=== PATIENT | male | born 1935 | race Caucasian/White ===

== ENCOUNTER 2016-09-20 08:45 | Emergency (ER) | payer OTHER ==
[~2016-09-20] VITALS: Ht 165.1 cm; Wt 65.0 kg
[~2016-09-20 08:45] MED LIST: ALLO100T PO; ASCA500 PO; ASPI81TA28 PO; ATOR80TA PO; CLOP1TAB15 PO; DIGO0.122 PO; DOCU100T7 PO; FURO-85 PO; METO50TA16 PO; MISC-573; MULT-506 PO; NTRGSL/4 UT; OMEP40CA PO; PRED20TA2 PO; SPIR25TA PO; SYMIN INH; SYN50 PO; TIOT1SPR INH; ZNTT/150 PO
[2016-09-20 08:49] VITALS: TEMP 36.5; Ht 165.1 cm; Wt 65.0 kg
[2016-09-20] MEDS ORDERED: ALBUT/IPRATROP 3MG/0.5MG NEB 3 ML VIAL ONE (09:48)
--- NOTE | 2016-09-20 10:16 | EMERGENCY ROOM VISIT NOTE ---
History First contact with patient: 08:56 Chief Complaint: COUGH Stated Complaint: COUGH, SOB, TIGHTNESS OF CHEST Nursing Triage Summary: Productive cough that started a couple days ago. States theres blood in it, he cant sleep due to coughing. Coughs until he loses his breath. Denies CP. Pt on blood thinners. Was here for a fall, was admitted. History of Present Illness The patient is a 81 year old male who presents to the Emergency Room with complaints of worsening cough and dyspnea. He was in admitted hospital on 09/15 for 3 days for dehydration and fall. CXR done at that time was unchanged from previous CXR from one month earlier Since discharge, patient feels his respiratory function has significantly declined and he is feeling week, saying he feels his legs are heavy and he is unable to lift them. He is spending significantly more time in his recliner as a result although he says he is able to use his walker to ambulate to the washroom without too much dyspnea. His cough has been getting worse since, with significant dyspnea post coughing fits. He is bringing up clear phlegm with streaks of blood. The blood tinging appeared ~1-2 days ago. Has new onset rhinorrhea, but otherwise denies URI symptoms (no sore throat, ear pain, nasal congestion) and has not had any fevers He has no associated chest pain, abdominal pain or back pain and no nausea or vomiting. Not on home oxygen/CPAP/BIPAP Review of Systems See HPI for pertinent positives and negatives. A total of ten systems were reviewed and were otherwise negative. Past Medical/Surgical History Medical Problems: (1) Dehydration, moderate (2) Feeling exhausted (3) Gouty arthropathy (4) Liver contusion (5) Lung cancer (6) Neutropenia (7) Post-op pain (8) Systolic heart failure Surgical Problems: (1) S/P CABG (coronary artery bypass graft) Family History Cancer FHx: cancer Heart disease Hypertension Lung disease Social History Smoking Status: Former Smoker Alcohol Use: none Marital Status: Occupation Status: retired Current/Historical Medications Scheduled Allopurinol (Zyloprim), 100 MG PO QAM Ascorbic Acid (Vitamin C), 500 MG PO BID Aspirin (Aspirin Ec), 81 MG PO DAILY Atorvastatin Calcium (Lipitor), 80 MG PO HS Budesonide/Formoterol Fumarate (Symbicort 160-4.5 Mcg/Act), 2 PUFFS INH BID Clopidogrel (Plavix), 75 MG PO DAILY Digoxin (Lanoxin), 0.125 MG PO QAM Furosemide (Lasix), 20 MG PO DAILY Levofloxacin (Levaquin), 500 MG PO DAILY Levothyroxine Sodium (Synthroid), 50 MCG PO QAM Metoprolol Tartrate (Lopressor) (Lopressor), 50 MG PO BID Multivitamin (Multivitamin), 1 TAB PO QAM Omeprazole (Prilosec), 40 MG PO QPM Oseltamivir Phosphate (Tamiflu), 1 CAP PO BID Prednisone (Prednisone Tab), 20 MG PO DAILY Ranitidine (Zantac), 150 MG PO QAM Spironolactone (Aldactone), 25 MG PO QAM Tiotropium [place] Monohydrate (Spiriva Respimat), 2 PUFFS INH DAILY Scheduled PRN Docusate Sodium (Stool Softener), 100 MG PO BID PRN for Constipation Nitroglycerin (Nitrostat), 0.4 MG UT PRN PRN for CHEST PAIN Durable Medical Equipment Misc. Devices (Roller Walker), UNIT Allergies Coded Allergies: Lisinopril (Verified Allergy, Unknown, Unknown, 09/20/16) Physical Exam Vital Signs Date Time Temp Pulse Resp B/P Pulse Ox O2 Delivery O2 Flow Rate FiO2 09/20/16 08:53 98 Room Air 09/20/16 08:49 36.5 98 18 126/72 97 Room Air Physical Exam GENERAL: alert, thin, lying in bed, tachypneic, non-toxic HEAD: Normocephalic, atraumatic. No sinus tenderness. EYES: PERRL, EOMI, normal conjunctiva OROPHARYNX: no exudate, no erythema, lips, buccal mucosa, and tongue normal and mucous membranes are dry NECK: supple, no nuchal rigidity, no adenopathy, non-tender LUNGS: Normal chest wall mechanics, but poor inspiratory effort with decreased air entry. No crepitations, no rhonchi or wheezes. HEART: no murmurs, S1 normal and S2 normal CHEST: No reproducible tenderness. ABDOMEN: abdomen soft, non-tender, normo-active bowel sounds, no masses, no rebound or guarding. BACK: Back is symmetrical on inspection, no deformities, no midline tenderness, no CVA tenderness. SKIN: Warm, pink, dry. No erythema, rashes, or bruising. EXTREMITIES: Grossly normal. Moving all 4 limbs, strength 5/5. No pitting edema. Calves non tender. NEURO: Alert, Ox3. No focal deficits. Normal sensorium, cranial nerves II-XII grossly intact, normal speech. PSYCH: Mood and affect appropriate. Medical Decision & Procedures ER Provider Diagnostic Interpretation: TWO VIEW CHEST CLINICAL HISTORY: Dyspnea. Lung cancer. FINDINGS: PA and lateral chest radiographs are compared to study dated 09/15/2016. Correlation is made with chest CT dated 06/01/2016. The PA view is degraded patient rotation. A right subclavian central venous infusion port is unchanged in position, as is a 2-lead cardiac AICD that largely obscures the left mid chest. The patient is status post midline sternotomy. The heart is enlarged and there is atherosclerotic calcification of the thoracic aorta. The pulmonary vasculature is noncongested. Emphysema and chronic interstitial thickening are similar to previous. Nodular densities are again noted in the left upper lobe with associated pleural thickening. A right suprahilar lesion is also unchanged. Superimposed airspace consolidation is identified in the left upper lung. Small pleural effusions are noted. Elevation of the left hemidiaphragm is again noted. No pneumothorax is seen. The skeletal structures are osteopenic. Degenerative change is noted throughout the thoracic spine. A surgical anchor is present in the right humeral head. IMPRESSION: Laboratory Results Test 09/20/16 09:53 Influenza Type A Antigen POS for Influ A (NEG) Influenza Type B Antigen Neg for Influ B (NEG) Medications Administered Medications (Trade) Dose Ordered Sig/Sheila Route Start Time Stop Time Status Last Admin Dose Admin Albuterol/ Ipratropium (Duoneb) 3 ml STK-MED ONCE .ROUTE 09/20/16 09:48 09/20/16 09:49 DC 09/20/16 09:48 3 ML Medical Decision 81 year old male presents to ED 3 days after hospital discharge with worsening dyspnea Differential diagnoses includes but is not limited to pneumonia, bronchitis, COPD/Asthma exacerbation, pneumothorax, pulmonary embolism, congestive heart failure, acute coronary syndrome, atelectasis Patient was given Duoneb, with some symptom improvement CXR was performed and reported cardiomegaly and AICD without evidence of congestive failure, emphysema, chronic elevation of left hemidiaphragm, nodularity and pleural thickening in the left lung, and a right suprahilar lesion are similar to previous. Additionally, there is superimposed airspace consolidation in the left upper lung consistent with pneumonia and small pleural effusions are identified. Also, rapid flu test came back positive for influenza A. As such, patient started on Levaquin 500mg daily x 7 days and Tamiflu 75mg BID x 5 days, with first doses given in hospital Admission versus discharge was discussed with patient. At this time patient wishes to try going home. Patient and his son understand and are agreeable with care plan. Impression Primary Impression: Pneumonia Additional Impressions: Influenza, Productive cough, Dyspnea Departure Information Dispostion Home / Self-Care Condition FAIR Prescriptions Oseltamivir Phosphate (Tamiflu) 75 Mg Cap 1 CAP PO BID for 5 Days, #10 CAP Prov: Alka. Alvarenga MD 09/20/16 Levofloxacin (Levaquin) 500 Mg Tab 500 MG PO DAILY for 7 Days, #7 TAB Prov: Alka. Alvarenga MD 09/20/16 Referrals Anthony Abarca M.D. (PCP) Patient Instructions A Signature Page, My [facility]
--- NOTE | 2016-09-20 10:19 | DIAGNOSTIC IMAGING REPORT ---
TWO VIEW CHEST CLINICAL HISTORY: Dyspnea. Lung cancer. FINDINGS: PA and lateral chest radiographs are compared to study dated 09/15/2016. Correlation is made with chest CT dated 06/01/2016. The PA view is degraded patient rotation. A right subclavian central venous infusion port is unchanged in position, as is a 2-lead cardiac AICD that largely obscures the left mid chest. The patient is status post midline sternotomy. The heart is enlarged and there is atherosclerotic calcification of the thoracic aorta. The pulmonary vasculature is noncongested. Emphysema and chronic interstitial thickening are similar to previous. Nodular densities are again noted in the left upper lobe with associated pleural thickening. A right suprahilar lesion is also unchanged. Superimposed airspace consolidation is identified in the left upper lung. Small pleural effusions are noted. Elevation of the left hemidiaphragm is again noted. No pneumothorax is seen. The skeletal structures are osteopenic. Degenerative change is noted throughout the thoracic spine. A surgical anchor is present in the right humeral head. IMPRESSION: 1. Cardiomegaly and AICD. There is no radiographic evidence of congestive failure. 2. Emphysema, chronic elevation of left hemidiaphragm, nodularity and pleural thickening in the left lung, and a right suprahilar lesion are similar to previous. This was better characterized by CT on 06/01/2016. 3. There is superimposed airspace consolidation in the left upper lung. Correlate clinically for evidence of pneumonia. 4. Small pleural effusions are identified. Electronically signed by: Eric Wiggins M.D. 09/20/2016 10:17 AM
[2016-09-20] MEDS ORDERED: LEVOFLOXACIN 250 MG TAB PO STA (10:52)
[2016-09-20] MEDS ORDERED: OSELTAMIVIR PHOSPHATE 75 MG CAP PO STA (11:07)
[2016-09-20] MEDS ORDERED: LEVO-366 PO (11:14)
[2016-09-20] MEDS ORDERED: OSEL75CA23 PO (11:14)
[2016-09-20] MEDS ORDERED: ALBUT/IPRATROP 3MG/0.5MG NEB 3 ML VIAL INH SCH (12:00)
--- NOTE | 2016-09-20 12:04 | EMERGENCY ROOM VISIT NOTE ---
History Report prepared by Monse: Winnie Stoll Under the Supervision of: Dr. Ulisses Amin D.O. First contact with patient: 08:56 Chief Complaint: COUGH Stated Complaint: COUGH, SOB, TIGHTNESS OF CHEST Nursing Triage Summary: Productive cough that started a couple days ago. States theres blood in it, he cant sleep due to coughing. Coughs until he loses his breath. Denies CP. Pt on blood thinners. Was here for a fall, was admitted. History of Present Illness The patient is a 81 year old male who presents to the Emergency Room with complaints of a worsening cough that started a couple days ago. The cough is productive with clear and tinged red sputum. He was seen in the ED on September 15 after generalized weakness and a fall. He was admitted and discharged from the hospital 3 days ago. Since then, his respiratory function has worsened. The patient is experiencing some post-cough dyspnea. He denies fever, sore throat, ear pain, sinus congestion, chest pain, nausea, and vomiting. The patient has lung cancer. Source of History: patient Onset: a couple days ago Quality: other (productive with clear and red tinged sputum) Timing: worsening Associated Symptoms: No chest pain, No fevers, No nausea, No sorethroat, No vomiting Note: post-cough dyspnea, no ear pain, no sinus congestion Review of Systems See HPI for pertinent positives & negatives. A total of 10 systems reviewed and were otherwise negative. Past Medical & Surgical Medical Problems: (1) Dehydration, moderate (2) Feeling exhausted (3) Gouty arthropathy (4) Liver contusion (5) Lung cancer (6) Neutropenia (7) Post-op pain (8) Systolic heart failure Surgical Problems: (1) S/P CABG (coronary artery bypass graft) Family History Cancer FHx: cancer Heart disease Hypertension Lung disease Social History Smoking Status: Former Smoker Alcohol Use: none Marital Status: Occupation Status: retired Current/Historical Medications Scheduled Allopurinol (Zyloprim), 100 MG PO QAM Ascorbic Acid (Vitamin C), 500 MG PO BID Aspirin (Aspirin Ec), 81 MG PO DAILY Atorvastatin Calcium (Lipitor), 80 MG PO HS Budesonide/Formoterol Fumarate (Symbicort 160-4.5 Mcg/Act), 2 PUFFS INH BID Clopidogrel (Plavix), 75 MG PO DAILY Digoxin (Lanoxin), 0.125 MG PO QAM Furosemide (Lasix), 20 MG PO DAILY Levofloxacin (Levaquin), 500 MG PO DAILY Levothyroxine Sodium (Synthroid), 50 MCG PO QAM Metoprolol Tartrate (Lopressor) (Lopressor), 50 MG PO BID Multivitamin (Multivitamin), 1 TAB PO QAM Omeprazole (Prilosec), 40 MG PO QPM Oseltamivir Phosphate (Tamiflu), 1 CAP PO BID Prednisone (Prednisone Tab), 20 MG PO DAILY Ranitidine (Zantac), 150 MG PO QAM Spironolactone (Aldactone), 25 MG PO QAM Tiotropium [place] Monohydrate (Spiriva Respimat), 2 PUFFS INH DAILY Scheduled PRN Docusate Sodium (Stool Softener), 100 MG PO BID PRN for Constipation Nitroglycerin (Nitrostat), 0.4 MG UT PRN PRN for CHEST PAIN Durable Medical Equipment Misc. Devices (Roller Walker), UNIT Allergies Coded Allergies: Lisinopril (Verified Allergy, Unknown, Unknown, 09/20/16) Physical Exam Vital Signs Date Time Temp Pulse Resp B/P Pulse Ox O2 Delivery O2 Flow Rate FiO2 09/20/16 10:45 55 16 111/62 92 Room Air 09/20/16 08:53 98 Room Air 09/20/16 08:49 36.5 98 18 126/72 97 Room Air Physical Exam CONSTITUTIONAL/VITAL SIGNS: Reviewed / noted above. GENERAL: Non-toxic in appearance. INTEGUMENTARY: Warm, dry, and [place]. HEAD: Normocephalic. EYES: without scleral icterus or trauma. ENT/OROPHARYNX: clear and moist. LYMPHADENOPATHY/NECK: Is supple without lymphadenopathy or meningismus. RESPIRATORY: Productive cough with clear sputum. Diminished breath sounds bilaterally. CARDIOVASCULAR: Regular rate and rhythm. GI/ABDOMEN: Soft and nontender. No organomegaly or pulsatile mass. No rebound or guarding. Normal bowel sounds. EXTREMITIES: Warm and well perfused. BACK: No CVA tenderness. NEUROLOGICAL: Intact without focal deficits. PSYCHIATRIC: normal affect. MUSCULOSKELETAL: Normally developed with good muscle tone. Medical Decision & Procedures ER Provider Diagnostic Interpretation: X ray results and stated below per my interpretation and radiology interpretation. TWO VIEW CHEST CLINICAL HISTORY: Dyspnea. Lung cancer. FINDINGS: PA and lateral chest radiographs are compared to study dated 09/15/2016. Correlation is made with chest CT dated 06/01/2016. The PA view is degraded patient rotation. A right subclavian central venous infusion port is unchanged in position, as is a 2-lead cardiac AICD that largely obscures the left mid chest. The patient is status post midline sternotomy. The heart is enlarged and there is atherosclerotic calcification of the thoracic aorta. The pulmonary vasculature is noncongested. Emphysema and chronic interstitial thickening are similar to previous. Nodular densities are again noted in the left upper lobe with associated pleural thickening. A right suprahilar lesion is also unchanged. Superimposed airspace consolidation is identified in the left upper lung. Small pleural effusions are noted. Elevation of the left hemidiaphragm is again noted. No pneumothorax is seen. The skeletal structures are osteopenic. Degenerative change is noted throughout the thoracic spine. A surgical anchor is present in the right humeral head. IMPRESSION: 1. Cardiomegaly and AICD. There is no radiographic evidence of congestive failure. 2. Emphysema, chronic elevation of left hemidiaphragm, nodularity and pleural thickening in the left lung, and a right suprahilar lesion are similar to previous. This was better characterized by CT on 06/01/2016. 3. There is superimposed airspace consolidation in the left upper lung. Correlate clinically for evidence of pneumonia. 4. Small pleural effusions are identified. Electronically signed by: Eric Wiggins M.D. 09/20/2016 10:17 AM Laboratory Results Test 09/20/16 09:53 Influenza Type A Antigen POS for Influ A (NEG) Influenza Type B Antigen Neg for Influ B (NEG) Laboratory results as stated above per my review. Medications Administered Medications (Trade) Dose Ordered Sig/Sheila Route Start Time Stop Time Status Last Admin Dose Admin Albuterol/ Ipratropium (Duoneb) 3 ml QIDR INH 09/20/16 12:00 10/20/16 11:59 09/20/16 11:34 3 ML Albuterol/ Ipratropium (Duoneb) 3 ml STK-MED ONCE .ROUTE 09/20/16 09:48 09/20/16 09:49 DC 09/20/16 09:48 3 ML Levofloxacin (Levaquin Tab) 500 mg NOW STAT PO 09/20/16 10:52 09/20/16 10:54 DC 09/20/16 11:31 500 MG Oseltamivir Phosphate (Tamiflu Cap) 75 mg ONE STAT PO 09/20/16 11:07 09/20/16 11:10 DC 09/20/16 11:31 75 MG ED Course 0902: The medical lab director evaluated the patient at this time. We discussed her findings and potential treatment plans. 0948: Resident ordered DuoNeb 3 ml INH 1048: Previous medical records were reviewed. The patient was evaluated in room B11. A complete history and physical examination was performed. 1052: Resident ordered Levofloxacin 500 mg PO 1107: Resident ordered Tamiflu Cap 75 mg PO 1140: On the resident's reevaluation, the patient is doing well. She discussed the results and findings with the patient and his son. The patient verbalized agreement of the treatment plan. The patient was discharged home. 1200: Resident ordered DuoNeb 3 ml INH Medical Decision the differential was considered includes acute myocardial infarction, acute coronary syndrome, myocarditis, pericarditis, pericardial effusions /tamponad, esophageal perforation, pulmonary embolism, pneumonia, pneumothorax, cardiomyopathy, congestive heart, anemia , COPD/asthma exacerbation. This is a 81-year-old male who presents to the ED with a chief complaint of a productive cough that is productive for whitish phlegm and occasionally blood- tinged sputum. I did witness a coughing episode in the sputum. There was no blood evident on my evaluation. The patient was just discharged from the hospital several days ago. He feels increasingly weak although he is able to get around with his walker. The patient's vital signs here are normal. He is afebrile. A chest x-ray suggests a possible left upper lobe pneumonia. Flu swab was positive for influenza A. The patient was given Levaquin by mouth as well as Tamiflu by mouth. The patient feels comfortable going home at this time. Should he worsen, he will return for admission. Impression Primary Impression: Influenza A Scribe Attestation The scribe's documentation has been prepared under my direction and personally reviewed by me in its entirety. I confirm that the note above accurately reflects all work, treatment, procedures, and medical decision making performed by me. Departure Information Dispostion Home / Self-Care Prescriptions Oseltamivir Phosphate (Tamiflu) 75 Mg Cap 1 CAP PO BID for 5 Days, #10 CAP Prov: Alka. Alvarenga MD 09/20/16 Levofloxacin (Levaquin) 500 Mg Tab 500 MG PO DAILY for 7 Days, #7 TAB Prov: Alka. Alvarenga MD 09/20/16 Referrals Anthony Abarca M.D. (PCP) Forms HOME CARE DOCUMENTATION FORM, IMPORTANT VISIT INFORMATION Patient Instructions A Signature Page, My [facility] Additional Instructions You were treated in the ED today for pneumonia and influenza A. Please continue the prescriptions of levofloxcin 500mg once daily for 7 days and Tamiflu 75mg twice daily for 5 days. Continue your inhalers and your regular medications as they were prescribed. You have been examined and treated today on an emergency basis only. This is not a substitute for, or an effort to provide, complete comprehensive medical care. It is impossible to recognize and treat all injuries or illnesses in a single emergency department visit. It is therefore important that you make a follow up with your physician for close monitoring in the next 7 to 10 days. Return for worsening symptoms or if you develop fever, vomiting, or any other concerning symptoms, such as inability to catch your breath or chest pain etc.
[2016-09-20 12:34] VITALS: BP 116/80; PULSE 122; O2SAT 92
[2016-09-25] MEDS ORDERED: OSEL75CA23 PO (10:32)
[2016-11-03] MEDS ORDERED: VALA1TAB31 PO (06:22)
== END 2016-09-20 12:42 | disposition home or self-care (01) ==
LOC: C.EDB 08:48
DX: J09.X2 Influenza due to identified novel influenza A virus with other respiratory manifestations (principal); M10.9 Gout, unspecified; Z85.118 Personal history of other malignant neoplasm of bronchus and lung; Z86.79 Personal history of other diseases of the circulatory system; Z82.49 Family history of ischemic heart disease and other diseases of the circulatory system; Z83.6 Family history of other diseases of the respiratory system; Z95.1 Presence of aortocoronary bypass graft; Z87.891 Personal history of nicotine dependence; Z79.82 Long term (current) use of aspirin; Z88.8 Allergy status to other drugs, medicaments and biological substances; I51.7 Cardiomegaly; J43.9 Emphysema, unspecified; J90 Pleural effusion, not elsewhere classified

== ENCOUNTER 2016-09-20 19:38 | Inpatient (IN) | payer OTHER ==
[~2016-09-20] VITALS: Ht 165.1 cm; Wt 64.8 kg
[~2016-09-20 19:38] MED LIST changes: +LEVO-366 PO; +NF406 PO
[2016-09-20] MEDS ORDERED: SODIUM CHLORIDE 0.9% 1000ML 1,000 ML IV STA (20:56)
[2016-09-20] MEDS ORDERED: ALBUT/IPRATROP 3MG/0.5MG NEB 3 ML VIAL INH STA (20:56)
--- NOTE | 2016-09-20 21:23 | EMERGENCY ROOM VISIT NOTE ---
History Report prepared by Monse: Jimbo Hobson Under the Supervision of: Dr. Jazmine Rider M.D. First contact with patient: 20:54 Chief Complaint: FLU LIKE SX Stated Complaint: FLU AND PNEUMONIA History of Present Illness The patient is an 81 year old male who presents to the Emergency Room with complaints of a persistent illness that started around a week ago. Per the patient's family, the patient was here 3 days ago for coughing, shortness of breath, and chest pain. He had a chest x-ray and he was diagnosed with influenza and pneumonia. Ever since then, the patient has had the symptoms worsen. He was put on Levaquin. Per the patient's family, the patient fell the day after [place] and was here for a few days. The patient's ability to move around has been getting worse, and he is getting much weaker. The patient is "not himself", states the patient's family. The nursing staff denies that the patient has any current fevers. The patient did have his flu shot this year. He did not take any Tylenol today. The patient has a port for lung cancer, but he is taking a break from the chemotherapy currently. His primary care physician is Dr. Abarca. Source of History: patient, family, nursing staff Onset: A week ago Position: other (global - illness) Quality: other (diagnosed with the flu and pneumonia) Timing: other (persistent) Associated Symptoms: + SOB, + chest pain, + cough, + weakness, No fevers ( current) Review of Systems See HPI for pertinent positives & negatives. A total of 10 systems reviewed and were otherwise negative. Past Medical & Surgical Medical Problems: (1) Dehydration, moderate (2) Elevated troponin I level (3) Feeling exhausted (4) Gouty arthropathy (5) Influenza A (6) Liver contusion (7) Lung cancer (8) Neutropenia (9) Post-op pain (10) Systolic heart failure Surgical Problems: (1) S/P CABG (coronary artery bypass graft) Family History Cancer FHx: cancer Heart disease Hypertension Lung disease Social History Smoking Status: Former Smoker Alcohol Use: none Marital Status: Housing Status: lives alone Occupation Status: retired Current/Historical Medications Scheduled Allopurinol (Zyloprim), 100 MG PO QAM Ascorbic Acid (Vitamin C), 500 MG PO BID Aspirin (Aspirin Ec), 81 MG PO DAILY Atorvastatin Calcium (Lipitor), 80 MG PO HS Budesonide/Formoterol Fumarate (Symbicort 160-4.5 Mcg/Act), 2 PUFFS INH BID Clopidogrel (Plavix), 75 MG PO DAILY Digoxin (Lanoxin), 0.125 MG PO QAM Furosemide (Lasix), 20 MG PO DAILY Levofloxacin (Levaquin), 500 MG PO DAILY Levothyroxine Sodium (Synthroid), 50 MCG PO QAM Metoprolol Tartrate (Lopressor) (Lopressor), 50 MG PO BID Multivitamin (Multivitamin), 1 TAB PO QAM Omeprazole (Prilosec), 40 MG PO QPM Oseltamivir Phosphate (Tamiflu), 1 CAP PO BID Prednisone (Prednisone Tab), 20 MG PO DAILY Ranitidine (Zantac), 150 MG PO QAM Spironolactone (Aldactone), 25 MG PO QAM Tiotropium [place] Monohydrate (Spiriva Respimat), 2 PUFFS INH DAILY Scheduled PRN Docusate Sodium (Stool Softener), 100 MG PO BID PRN for Constipation Nitroglycerin (Nitrostat), 0.4 MG UT PRN PRN for CHEST PAIN Durable Medical Equipment Misc. Devices (Roller Walker), UNIT Allergies Coded Allergies: Lisinopril (Verified Allergy, Unknown, Unknown, 09/20/16) Physical Exam Vital Signs Date Time Temp Pulse Resp B/P Pulse Ox O2 Delivery O2 Flow Rate FiO2 09/20/16 22:08 80 18 120/57 95 Nasal Cannula 2.0 09/20/16 21:39 104 09/20/16 19:53 36.9 97 18 106/54 94 Room Air Physical Exam Vital signs reviewed. General: Elderly, chronically ill-appearing 81 year old male, in no significant distress. HEENT: No scleral icterus, PERRLA, neck supple. Ecchymosis to the face as described below. Cardiovascular: Regular rate and rhythm, no extra sounds. Pulmonary: Coarse breath sounds bilaterally. Slightly increased work of breathing Abdomen: Soft, nontender, nondistended, positive bowel sounds. Musculoskeletal: Atraumatic, no peripheral edema. Neurologic: Patient awake alert and oriented x 3, full strength in all 4 extremities. Cranial nerves 2 through 12 grossly intact. Skin: Ecchymosis along nasal bridge that appears to be old. Bilateral upper extremity ecchymosis that appears to be old. Medical Decision & Procedures Laboratory Results Test 09/20/16 21:30 Nucleated RBC Absolute Count (auto) 0.02 K/uL (0-0) Nucleated Red Blood Cells % 0.2 % Prothrombin Time 12.0 SECONDS (9.0-12.0) Prothromb Time International Ratio 1.1 (0.9-1.1) Activated Partial Thromboplast Time 30.6 SECONDS (21.0-31.0) Partial Thromboplastin Ratio 1.2 Laboratory results per my review. Medications Administered Medications (Trade) Dose Ordered Sig/Sheila Route Start Time Stop Time Status Last Admin Dose Admin Sodium Chloride (Nss 1000ml) 1,000 ml @ 125 mls/hr Q8H STAT IV 09/20/16 20:56 09/21/16 01:26 DC 09/20/16 20:56 125 MLS/HR Albuterol/ Ipratropium (Duoneb) 3 ml NOW STAT INH 09/20/16 20:56 09/20/16 20:59 DC 09/20/16 20:56 3 ML Ondansetron HCl 4 mg 4 mg Q6H PRN IV 09/20/16 23:00 10/20/16 22:59 09/21/16 17:56 4 MG Vancomycin HCl/ Sodium Chloride (Vancomycin Inj/ Nss 500ml) 532 ml @ 200 mls/hr NOW STAT IV 09/20/16 23:32 09/21/16 02:11 DC 09/21/16 00:13 200 MLS/HR ECG Indication: other (illness) Rate (beats per minute): 95 Rhythm: other (atrially sensed rhythm) Findings: no ectopy, other (QTC at 477) ED Course 2054: Past medical records reviewed. The patient was evaluated in room B10. A complete history and physical examination was performed. The patient verbally expressed agreement and understanding of the treatment plan. The patient will be evaluated for further treatment. 2055: Ordered Duoneb 3 ml INH, NSS 1000 ml @ 125 mls/hr IV. 2154: I discussed the patient with Dr. Dugan - [facility] [place] hospital[place] - he will evaluate the patient for further treatment. Medical Decision Differential diagnosis: Influenza, other viral illness, pneumonia, urinary tract infection, metabolic abnormality, medication effect, cellulitis, meningitis, intra-abdominal source. This patient was evaluated and appeared to be in no significant distress. Patient is noted to be afebrile however has recently tested positive for influenza A. He has had some generalized weakness and increased work of breathing. He is currently on nasal cannula oxygen. Patient's been gently hydrated with normal saline solution. Laboratory work reveals an elevated troponin. Patient does have an atrially sensed paced rhythm. Patient was given a DuoNeb treatment. He has been on Levaquin and Tamiflu. Patient will be evaluated by the hospitalist service for further management. He and his family are aware of plan and agree. Consults Time Called: 2149 Consulting Physician: Dr. Kailee VILCHIS hospitalist Returned Call: 2154 I discussed the patient with Dr. Kailee VILCHIS hospitalmartha - he will evaluate the patient for further treatment. Impression Primary Impression: PNA (pneumonia) Additional Impressions: Influenza A, Elevated troponin I level Scribe Attestation The scribe's documentation has been prepared under my direction and personally reviewed by me in its entirety. I confirm that the note above accurately reflects all work, treatment, procedures, and medical decision making performed by me. Departure Information Dispostion Being Evaluated By Hospitalist Referrals Anthony Abarca M.D. (PCP) Patient Instructions A Signature Page, My [facility]
[2016-09-20 21:53] LABS: BASO % 0.1 %; BASO ABS # 0.01 K/uL (0-0.2); COMPLETE YES; EOS % 0.4 %; HEMATOCRIT 39.4 % (42-52); IG% 0.8 %; LYMPH % 3.5 %; LYMPH ABS # 0.46 K/uL (1.2-3.4); MEAN CORPUSCULAR HEMOGLOBIN 30.5 pg (25-34); MEAN CORPUSCULAR HGB CONC 33.5 g/dl (32-36); MEAN PLATELET VOLUME 9.5 fL (7.4-10.4); MONO % 10.8 %; NEUT % 84.4 %; PLATELET COUNT 233 K/uL (130-400); RED BLOOD COUNT 4.33 M/uL (4.7-6.1)
[2016-09-20 22:03] LABS: INR 1.1 (0.9-1.1); PARTIAL THROMBOPLASTIN RATIO 1.2
[2016-09-20 22:11] LABS: BUN/CREATININE RATIO 23.4 (10-20); CALCIUM 7.7 mg/dl (8.5-10.1); CREATININE 0.79 mg/dl (0.60-1.40); MAGNESIUM 2.2 mg/dl (1.8-2.4); POTASSIUM 4.5 mmol/L (3.5-5.1)
[2016-09-20 22:25] LABS: CKMB/CK RATIO 0.5 (0-3.0)
[2016-09-20] MEDS ORDERED: VANCOMYCIN INJ 1,000 MG in SODIUM CHLORIDE 0.9% 250ML 250 ML IV STA (22:55)
[2016-09-20] MEDS ORDERED: ONDANSETRON INJ 2 MG/ML 2 ML VIAL IV PRN ×2 (23:00)
[2016-09-20] MEDS ORDERED: PREMIXED IN D5W 100 ML IV SCH (23:00)
[2016-09-20] MEDS ORDERED: ZOLPIDEM TARTRATE 5 MG TAB PO PRN (23:00)
[2016-09-20] MEDS ORDERED: NITROGLYCERIN 0.4 MG SL PER TAB CHARGE SL PRN (23:00)
[2016-09-20] MEDS ORDERED: ACETAMINOPHEN 325 MG TAB PO PRN (23:00)
[2016-09-20] MEDS ORDERED: VANCOMYCIN INJ 1,600 MG in SODIUM CHLORIDE 0.9% 500ML 500 ML IV STA (23:32)
[2016-09-21] VITALS (12 sets, daily range): BP systolic 129–154; BP diastolic 70–80; PULSE 20–94; TEMP 36.4–37; O2SAT 91–99; Ht 165.1 cm; Wt 64.8 kg
[2016-09-21] MEDS ORDERED: PIPERACILL/TAZOBAC CONSULT ACTIVE PRN (01:45)
[2016-09-21] MEDS ORDERED: VANCOMYCIN CONSULT ACTIVE PRN (01:45)
[2016-09-21] MEDS ORDERED: PIPERACILL/TAZOBAC IV 3.375 GM in DEXTROSE 5% 100ML IV ONE (02:00)
[2016-09-21] MEDS: METHYLPREDNISOLONE IV 40 MG in SYRINGE 0 ML IV SCH ×3 (02:00→18:01)
[2016-09-21] MEDS ORDERED: LEVALBUTEROL/IPRATROPIUM NEB INH SCH (03:00)
[2016-09-21] MEDS: IPRATROPIUM BROMIDE NEB SOLN 0.02% 2.5 ML VIAL INH SCH ×4 (03:27→20:30)
[2016-09-21] MEDS: LEVALBUTEROL 1.25MG/0.5ML NEB INH SCH ×4 (03:27→20:30)
--- NOTE | 2016-09-21 04:30 | History and Physical ---
History & Physical Date & Time of Service: Sep 21, 2016 at 04:13 Chief Complaint: Elevated Troponin I Level, Influenza A Primary Care Physician: Anthony Abarca M.D. History of Present Illness Source: patient, family The patient is a 81-year-old male, most recently hospitalized from September 15 through 09/17/2016 for a fall with liver contusion, who presents to the emergency department with 3 days of coughing, chest pain and shortness of breath. He was seen in the emergency department earlier in the day and was diagnosed with influenza and pneumonia that time. The patient thought he'll be able to go home, however, his symptoms worsened, and he presents back to the emergency department for reassessment for possible admission. Past Medical/Surgical History Medical Problems: (1) Gouty arthropathy Status: Chronic (2) Systolic heart failure Status: Resolved Surgical Problems: (1) S/P CABG (coronary artery bypass graft) Status: Resolved Family History Cancer FHx: cancer Heart disease Hypertension Lung disease Social History Smoking Status: Current Some Day Smoker Smokeless Tobacco Use: No Alcohol Use: none Drug Use: none Marital Status: Housing status: lives alone Occupational Status: retired Immunizations History of Influenza Vaccine: No Influenza Vaccine Date: Jul 10, 2011 History of Tetanus Vaccine?: Unknown History of Pneumococcal: Unknown Pneumococcal Date: Mar 10, 2007 History of Hepatitis B Vaccine: Unknown Multi-Drug Resistant Organisms History of MDRO: No Allergies Coded Allergies: Lisinopril (Verified Allergy, Unknown, Unknown, 09/20/16) Home Medications Scheduled Allopurinol (Zyloprim), 100 MG PO QAM Ascorbic Acid (Vitamin C), 500 MG PO BID Aspirin (Aspirin Ec), 81 MG PO DAILY Atorvastatin Calcium (Lipitor), 80 MG PO HS Budesonide/Formoterol Fumarate (Symbicort 160-4.5 Mcg/Act), 2 PUFFS INH BID Clopidogrel (Plavix), 75 MG PO DAILY Digoxin (Lanoxin), 0.125 MG PO QAM Furosemide (Lasix), 20 MG PO DAILY Levofloxacin (Levaquin), 500 MG PO DAILY Levothyroxine Sodium (Synthroid), 50 MCG PO QAM Metoprolol Tartrate (Lopressor) (Lopressor), 50 MG PO BID Multivitamin (Multivitamin), 1 TAB PO QAM Omeprazole (Prilosec), 40 MG PO QPM Oseltamivir Phosphate (Tamiflu), 1 CAP PO BID Prednisone (Prednisone Tab), 20 MG PO DAILY Ranitidine (Zantac), 150 MG PO QAM Spironolactone (Aldactone), 25 MG PO QAM Tiotropium [place] Monohydrate (Spiriva Respimat), 2 PUFFS INH DAILY Scheduled PRN Docusate Sodium (Stool Softener), 100 MG PO BID PRN for Constipation Nitroglycerin (Nitrostat), 0.4 MG UT PRN PRN for CHEST PAIN Review of Systems The patient denies lower extremity swelling, weight change, vomiting, abdominal pain, pelvic pain, blood in urine or stool, dysuria, urinary frequency or urgency, rash, abnormal bruising or bleeding, imbalance, focal weakness, numbness or tingling in arms or legs. The review of systems is otherwise negative other than for that already noted above, and at least 10 systems have been reviewed. Physical Exam Vital Signs Date Time Temp Pulse Resp B/P Pulse Ox O2 Delivery O2 Flow Rate FiO2 09/21/16 03:28 91 20 97 Nasal Cannula 2.0 09/21/16 01:00 36.8 90 24 154/75 97 Nasal Cannula 2.0 09/21/16 00:19 80 22 118/65 95 09/20/16 22:08 80 18 120/57 95 Nasal Cannula 2.0 09/20/16 21:39 104 09/20/16 19:53 36.9 97 18 106/54 94 Room Air The patient is awake, alert and oriented 3, appears fatigued, has healing facial abrasions from previous fall, is lying in bed and in no acute distress. HEENT--PERRL, EOMI, mucous membranes moist, and oropharynx normal. Facial abrasions on nose, maxillary and frontal areas. Neck--supple, no JVD or bruits, thyroid normal, trachea midline, no adenopathy. Heart--normal S1 and S2, no extra beats, no murmurs, rubs or gallops. Lungs--decreased breath sounds throughout no respiratory distress, no accessory muscle use. Abdomen--normal bowel sounds and soft, nontender and nondistended, no hernias or masses, no organomegaly. Extremities--no cyanosis, clubbing or edema. There are good distal pulses b/l. Dermatologic--head neck abrasions as noted Neurologic--cranial nerves II through XII grossly intact. Psychiatric--normal affect. Diagnostics Laboratory Results Results Past 24 Hours Test 09/20/16 21:30 Range/Units White Blood Count 13.10 4.8-10.8 K/uL Red Blood Count 4.33 4.7-6.1 M/uL Hemoglobin 13.2 14.0-18.0 g/dL Hematocrit 39.4 42-52 % Mean Corpuscular Volume 91.0 80-100 fL Mean Corpuscular Hemoglobin 30.5 25-34 pg Mean Corpuscular Hemoglobin Concent 33.5 32-36 g/dl Platelet Count 233 130-400 K/uL Mean Platelet Volume 9.5 7.4-10.4 fL Neutrophils (%) (Auto) 84.4 % Lymphocytes (%) (Auto) 3.5 % Monocytes (%) (Auto) 10.8 % Eosinophils (%) (Auto) 0.4 % Basophils (%) (Auto) 0.1 % Neutrophils # (Auto) 11.05 1.4-6.5 K/uL Lymphocytes # (Auto) 0.46 1.2-3.4 K/uL Monocytes # (Auto) 1.42 0.11-0.59 K/uL Eosinophils # (Auto) 0.05 0-0.5 K/uL Basophils # (Auto) 0.01 0-0.2 K/uL RDW Standard Deviation 64.2 36.4-46.3 fL RDW Coefficient of Variation 19.2 11.5-14.5 % Immature Granulocyte % (Auto) 0.8 % Immature Granulocyte # (Auto) 0.11 0.00-0.02 K/uL Nucleated RBC Absolute Count (auto) 0.02 0-0 K/uL Nucleated Red Blood Cells % 0.2 % Prothrombin Time 12.0 9.0-12.0 SECONDS Prothromb Time International Ratio 1.1 0.9-1.1 Activated Partial Thromboplast Time 30.6 21.0-31.0 SECONDS Partial Thromboplastin Ratio 1.2 Sodium Level 139 136-145 mmol/L Potassium Level 4.5 3.5-5.1 mmol/L Chloride Level 104 98-107 mmol/L Carbon Dioxide Level 26 21-32 mmol/L Anion Gap 9.0 3-11 mmol/L Blood Urea Nitrogen 19 7-18 mg/dl Creatinine 0.79 0.60-1.40 mg/dl Est Creatinine Clear Calc Drug Dose 62.7 ml/min Estimated GFR () 96.9 Estimated GFR (Non- 83.6 BUN/Creatinine Ratio 23.4 10-20 Random Glucose 107 70-99 mg/dl Calcium Level 7.7 8.5-10.1 mg/dl Magnesium Level 2.2 1.8-2.4 mg/dl Total Bilirubin 0.7 0.2-1 mg/dl Direct Bilirubin 0.2 0-0.2 mg/dl Aspartate Amino Transf (AST/SGOT) 207 15-37 U/L Alanine Aminotransferase (ALT/SGPT) 261 12-78 U/L Alkaline Phosphatase 103 45-117 U/L Total Creatine Kinase 1716 39-308 U/L Creatine Kinase MB 8.7 0.5-3.6 ng/ml Creatine Kinase MB Ratio 0.5 0-3.0 Troponin I 0.271 0-0.045 ng/ml Total Protein 5.3 6.4-8.2 gm/dl Albumin 2.3 3.4-5.0 gm/dl Microbiology Results 09/20/16 Blood Culture, Received Pending 09/20/16 Blood Culture, Received Pending Diagnostic Radiology Patient Name: DAXA MEJIA JR Unit Number: [id number] Dictated: 09/20/161014 Transcribed: 09/20/16 101 EV Printed Date/Time: [~ rep prt dt]/[~ rep prt tm] [~ rep ct labl] - [~ rep ct ivnm] [facility] [place] [address] Dictated: 09/20/161014 Transcribed: 09/20/16 1015 EV Printed Date/Time: [~ rep prt dt]/[~ rep prt tm] [~ rep ct labl] - [~ rep ct ivnm] CLINICAL HISTORY: Dyspnea. Lung cancer. FINDINGS: PA and lateral chest radiographs are compared to study dated 09/15/2016. Correlation is made with chest CT dated 06/01/2016. The PA view is degraded patient rotation. A right subclavian central venous infusion port is unchanged in position, as is a 2-lead cardiac AICD that largely obscures the left mid chest. The patient is status post midline sternotomy. The heart is enlarged and there is atherosclerotic calcification of the thoracic aorta. The pulmonary vasculature is noncongested. Emphysema and chronic interstitial thickening are similar to previous. Nodular densities are again noted in the left upper lobe with associated pleural thickening. A right suprahilar lesion is also unchanged. Superimposed airspace consolidation is identified in the left upper lung. Small pleural effusions are noted. Elevation of the left hemidiaphragm is again noted. No pneumothorax is seen. The skeletal structures are osteopenic. Degenerative change is noted throughout the thoracic spine. A surgical anchor is present in the right humeral head. IMPRESSION: 1. Cardiomegaly and AICD. There is no radiographic evidence of congestive failure. 2. Emphysema, chronic elevation of left hemidiaphragm, nodularity and pleural thickening in the left lung, and a right suprahilar lesion are similar to previous. This was better characterized by CT on 06/01/2016. 3. There is superimposed airspace consolidation in the left upper lung. Correlate clinically for evidence of pneumonia. 4. Small pleural effusions are identified. Electronically signed by: Eric Wiggins M.D. 09/20/2016 10:17 AM The status of this report is Signed. Draft = Not yet reviewed or approved by Radiologist. Signed = Reviewed and approved by Radiologist. <AttendingPhy></AttendingPhy> <FamilyPhy>Anthony Abarca M.D.</FamilyPhy > <PrimaryPhy>Anthony Abarca M.D.</PrimaryPhy> <UnitNumber>[id number]</ UnitNumber> <VisitNumber>[id number]</VisitNumber> <PatientName>DAXA MEJIA JR </PatientName> <DateOfBirth>1935</DateOfBirth> <Location>[facility]</Location> <ServiceDate>09/20/16</ServiceDate> <MNE>ESINDI</MNE> <OrderingPhy>Pia Alvarenga MD </OrderingPhy> <OrderingPhyMNE>f rep ord dr pathak</OrderingPhyMNE> < DictatingPhyMNE>f rep dict dr pathak</DictatingPhyMNE> <CCListMNE>f rep ct zo</ CCListMNE> <AdmittingPhyMNE>f pt admit dr pathak</AdmittingPhyMNE> <AttendingPhyMNE >f pt attend dr pathak</AttendingPhyMNE> <ConsultingPhyMNE>f pt consult dr pathak</ConsultingPhyMNE> <FamilyPhyMNE>f pt fam dr pathak</FamilyPhyMNE> <OtherPhyMNE>f pt other dr pathak</OtherPhyMNE> < PrimaryPhyMNE>f pt prim care dr pathak</PrimaryPhyMNE> <ReferringPhyMNE>f pt referring dr pathak</ReferringPhyMNE> EKG EKG shows atrial sensed ventricular paced rhythm at a rate of 65 bpm, with no acute ST-T changes. Impression Assessment and Plan Influenza A with pneumonia/lung cancer history--we'll place on Tamiflu 75 mg by mouth twice a day, vancomycin IV per renal dosing, Zosyn 3.375 mg IV every 12 hours, levofloxacin 500 mg IV every 24 hours, guaifenesin extended release 600 mg by mouth twice a day, and Xopenex that for nebulizers to use every 6 hours while awake and every 2 hours when necessary. We'll continue nasal cannula 2 L O2 titrated to keep pulse ox greater than or equal to 92%. We will hold Spiriva and Symbicort 160/4.5 2 puffs twice a day. We'll change prednisone 20 mg by mouth daily to Solu-Medrol 40 mg IV every 8 hours. CAD/systolic CHF/history of V. fib arrest and AICD placement/with elevated troponin of 0.27--the patient will be admitted to the telemetry unit, for serial cardiac enzymes, cardiac rhythm monitoring, and a 2-D echocardiogram with Dopplers. We'll continue aspirin 81 mg by mouth daily, clopidogrel 75 mg by mouth daily, digoxin 0.125 mg by mouth every morning, metoprolol tartrate 50 mg by mouth twice a day. We'll hold furosemide 20 mg by mouth daily and spironolactone 25 mg by mouth every morning since he looks volume depleted at this time. Gout--continue allopurinol 100 mg by mouth every morning. Hyperlipidemia--continue atorvastatin 80 mg by mouth at bedtime. Hypothyroidism --continue levothyroxine sodium 50 g by mouth every morning. GERD--change omeprazole 40 mg by mouth every afternoon to pantoprazole 40 mg by mouth every morning, and continue ranitidine 150 mg by mouth every morning. Level of Care Telemetry Advanced Directives Existing Advance Directive: No Existing Living Will: No Existing Power of Fatback Trimmer: No Resuscitation Status FULL RESUSCITATION VTE Prophylaxis VTE Risk Assessment Done? Y/N: Yes Risk Level: Moderate
[2016-09-21] MEDS: LEVOTHYROXINE 50 MCG TAB PO SCH (05:30)
[2016-09-21] MEDS: PIPERACILL/TAZOBAC IV 3.375 GM in DEXTROSE 5% 100ML IV SCH ×3 (05:30→22:40)
[2016-09-21] MEDS ORDERED: PIPERACILL/TAZOBAC IV 3.375 GM in DEXTROSE 5% 100ML 100 ML IV SCH (06:00)
[2016-09-21 07:05] LABS: COMPLETE YES; HEMATOCRIT 35.7 % (42-52); IG% 0.6 %; LYMPH % 2.5 %; LYMPH ABS # 0.21 K/uL (1.2-3.4); MEAN CELL VOLUME 91.1 fL (80-100); MEAN CORPUSCULAR HEMOGLOBIN 30.1 pg (25-34); MEAN CORPUSCULAR HGB CONC 33.1 g/dl (32-36); MEAN PLATELET VOLUME 9.3 fL (7.4-10.4); MONO % 3.8 %; NEUT % 93.1 %; PLATELET COUNT 183 K/uL (130-400); RED BLOOD COUNT 3.92 M/uL (4.7-6.1); WHITE BLOOD COUNT 8.49 K/uL (4.8-10.8)
[2016-09-21 07:39] LABS: BUN/CREATININE RATIO 26.7 (10-20); CALCIUM 7.2 mg/dl (8.5-10.1); CREATININE 0.6 mg/dl (0.60-1.40); MAGNESIUM 2.3 mg/dl (1.8-2.4); POTASSIUM 4.1 mmol/L (3.5-5.1)
[2016-09-21 07:57] LABS: CKMB/CK RATIO 0.7 (0-3.0)
--- NOTE | 2016-09-21 08:28 | Family Medicine Progress Note ---
Progress Note Date of Service Sep 21, 2016. Subjective Pt reports 2 week history of proximal leg muscle weakness. He had a fall a few weeks ago in the grocery store when his foot got caught on the cart, then was admitted to the hospital. He then presented again yesterday with worsening cough , and was found to have influenza A and pneumonia. He was discharged on Tamiflu and Levaquin. He then returned with his grandson because his breating was worse , and was found to have a mild troponin elevation of 0.156. Constitutional: + weakness, No chills, No fatigue, No fever, No sweats, No weight loss Eyes: No worsening of vision ENT: No hearing loss Respiratory: + shortness of breath, + sputum, + wheezing, No cough, No dyspnea on exertion Cardiovascular: No chest pain Abdomen: No constipation, No pain, No vomiting Musculoskeletal: No joint pain Neurologic: No memory loss Skin: No rash All Other Systems: Reviewed and Negative Medications Current Inpatient Medications Medications (Trade) Dose Ordered Sig/Sheila Route Start Time Stop Time Status Last Admin Dose Admin Acetaminophen (Tylenol Tab) 650 mg Q4H PRN PO 09/20/16 23:00 10/20/16 22:59 Zolpidem Tartrate (Ambien Tab) 5 mg HSZ PRN PO 09/20/16 23:00 10/20/16 22:59 Nitroglycerin (Nitrostat Tab) 0.4 mg UD PRN SL 09/20/16 23:00 10/20/16 22:59 Allopurinol (Zyloprim Tab) 100 mg QAM PO 09/21/16 09:00 10/21/16 08:59 09/21/16 08:50 100 MG Ascorbic Acid (Vitamin C Tab) 500 mg BID PO 09/21/16 09:00 10/21/16 08:59 09/21/16 08:50 500 MG Aspirin (Ecotrin Tab) 81 mg DAILY PO 09/21/16 09:00 10/21/16 08:59 09/21/16 08:50 81 MG Atorvastatin Calcium (Lipitor Tab) 80 mg HS PO 09/21/16 21:00 10/21/16 20:59 Future Hold Clopidogrel Bisulfate (plAVix TAB) 75 mg DAILY PO 09/21/16 09:00 10/21/16 08:59 09/21/16 08:49 75 MG Digoxin (Lanoxin Tab) 0.125 mg DAILY@1600 PO 09/21/16 16:00 10/21/16 15:59 Levothyroxine Sodium (Synthroid Tab) 50 mcg DAILYBB PO 09/21/16 06:00 10/21/16 05:59 09/21/16 05:30 50 MCG Metoprolol Tartrate (Lopressor Tab) 50 mg BID PO 09/21/16 09:00 10/21/16 08:59 09/21/16 08:51 50 MG Multivitamins (Multivitamin Tab) 1 tab QAM PO 09/21/16 09:00 10/21/16 08:59 09/21/16 08:50 1 TAB Oseltamivir Phosphate (Tamiflu Cap) 75 mg BID PO 09/21/16 09:00 09/26/16 08:59 09/21/16 08:49 75 MG Ranitidine HCl (zANTac TAB) 150 mg BID PO 09/21/16 09:00 10/21/16 08:59 09/21/16 08:49 150 MG Docusate Sodium (coLACE CAP) 100 mg BID PO 09/21/16 09:00 10/21/16 08:59 09/21/16 08:50 100 MG Pantoprazole Sodium 40 mg 40 mg QAM PO 09/21/16 09:00 10/21/16 08:59 09/21/16 08:50 40 MG Methylprednisolone Sodium Succinate/ Syringe (Solu-Medrol IV/ Syringe) 0.64 ml @ 1.5 mls/min Q8H IV 09/21/16 01:30 10/21/16 01:29 09/21/16 08:51 1.5 MLS/MIN Ondansetron HCl (Zofran Inj) 4 mg Q6H PRN IV 09/20/16 23:00 10/20/16 22:59 Guaifenesin (Mucinex Contr Rel Tab) 600 mg BID PO 09/21/16 09:00 10/21/16 08:59 09/21/16 08:49 600 MG Ipratropium [place] (Atrovent 0.02% 0.5MG/2.5ML Neb) 0.5 mg Q6R INH 09/21/16 03:00 10/21/16 02:59 09/21/16 07:21 0.5 MG Levalbuterol (Xopenex 1.25MG/ 0.5ML Neb) 1.25 mg Q6R INH 09/21/16 03:00 10/21/16 02:59 09/21/16 07:21 1.25 MG Ipratropium [place] (Atrovent 0.02% 0.5MG/2.5ML Neb) 0.5 mg Q2H PRN INH 09/21/16 01:30 10/21/16 01:29 Levalbuterol 1.25 mg 1.25 mg Q2H PRN INH 09/21/16 01:45 10/21/16 01:44 Piperacillin Sod/ Tazobactam Sod/ Dextrose (Zosyn Iv/D5 100ml) 115 ml @ 28.75 mls/ hr Q8H IV 09/21/16 06:00 10/01/16 05:59 09/21/16 05:30 28.75 MLS/HR Piperacillin Sod/ Tazobactam Sod (Consult) 1 ea UD PRN N/A 09/21/16 01:45 10/21/16 01:44 Vancomycin HCl 1 ea 1 ea UD PRN N/A 09/21/16 01:45 10/21/16 01:44 Vancomycin HCl/ Sodium Chloride (Vancomycin Inj/ Nss 250ml) 265 ml @ 125 mls/hr Q12H IV 09/21/16 12:00 10/01/16 11:59 09/21/16 12:30 125 MLS/HR Objective Vital Signs Date Time Temp Pulse Resp B/P Pulse Ox O2 Delivery O2 Flow Rate FiO2 09/21/16 14:15 88 18 95 Nasal Cannula 2.0 09/21/16 11:03 36.7 85 22 138/79 99 Nasal Cannula 2.0 Free Flow/Blowby 09/21/16 08:10 37.0 91 20 147/78 91 Nasal Cannula 2.0 09/21/16 07:22 92 20 96 Nasal Cannula 2.0 09/21/16 04:00 Nasal Cannula 2.0 09/21/16 04:00 36.4 94 20 145/80 97 Nasal Cannula 2.0 09/21/16 03:28 91 20 97 Nasal Cannula 2.0 09/21/16 01:00 36.8 90 24 154/75 97 Nasal Cannula 2.0 09/21/16 00:19 80 22 118/65 95 09/20/16 22:08 80 18 120/57 95 Nasal Cannula 2.0 09/20/16 21:39 104 09/20/16 19:53 36.9 97 18 106/54 94 Room Air Physical Exam General Appearance: WD/WN, no apparent distress Eyes: PERRL ENT: hearing grossly normal Neck: no JVD Respiratory/Chest: + wheezing Cardiovascular: regular rate, rhythm, no murmur Abdomen: normal bowel sounds, non tender, soft Extremities: non-tender, normal inspection, no pedal edema Neurologic/Psychiatric: alert, normal mood/affect, oriented x 3 Skin: no rash Laboratory Results Last 24 Hours Test 09/20/16 21:30 09/21/16 06:20 09/21/16 12:50 White Blood Count 13.10 K/uL 8.49 K/uL Red Blood Count 4.33 M/uL 3.92 M/uL Hemoglobin 13.2 g/dL 11.8 g/dL Hematocrit 39.4 % 35.7 % Mean Corpuscular Volume 91.0 fL 91.1 fL Mean Corpuscular Hemoglobin 30.5 pg 30.1 pg Mean Corpuscular Hemoglobin Concent 33.5 g/dl 33.1 g/dl Platelet Count 233 K/uL 183 K/uL Mean Platelet Volume 9.5 fL 9.3 fL Neutrophils (%) (Auto) 84.4 % 93.1 % Lymphocytes (%) (Auto) 3.5 % 2.5 % Monocytes (%) (Auto) 10.8 % 3.8 % Eosinophils (%) (Auto) 0.4 % 0.0 % Basophils (%) (Auto) 0.1 % 0.0 % Neutrophils # (Auto) 11.05 K/uL 7.91 K/uL Lymphocytes # (Auto) 0.46 K/uL 0.21 K/uL Monocytes # (Auto) 1.42 K/uL 0.32 K/uL Eosinophils # (Auto) 0.05 K/uL 0.00 K/uL Basophils # (Auto) 0.01 K/uL 0.00 K/uL RDW Standard Deviation 64.2 fL 63.9 fL RDW Coefficient of Variation 19.2 % 19.2 % Immature Granulocyte % (Auto) 0.8 % 0.6 % Immature Granulocyte # (Auto) 0.11 K/uL 0.05 K/uL Nucleated RBC Absolute Count (auto) 0.02 K/uL Nucleated Red Blood Cells % 0.2 % Prothrombin Time 12.0 SECONDS Prothromb Time International Ratio 1.1 Activated Partial Thromboplast Time 30.6 SECONDS Partial Thromboplastin Ratio 1.2 Sodium Level 139 mmol/L 140 mmol/L Potassium Level 4.5 mmol/L 4.1 mmol/L Chloride Level 104 mmol/L 106 mmol/L Carbon Dioxide Level 26 mmol/L 25 mmol/L Anion Gap 9.0 mmol/L 9.0 mmol/L Blood Urea Nitrogen 19 mg/dl 16 mg/dl Creatinine 0.79 mg/dl 0.60 mg/dl Est Creatinine Clear Calc Drug Dose 62.7 ml/min 82.6 ml/min Estimated GFR () 96.9 108.5 Estimated GFR (Non- 83.6 93.6 BUN/Creatinine Ratio 23.4 26.7 Random Glucose 107 mg/dl 138 mg/dl Calcium Level 7.7 mg/dl 7.2 mg/dl Magnesium Level 2.2 mg/dl 2.3 mg/dl Total Bilirubin 0.7 mg/dl 0.7 mg/dl Direct Bilirubin 0.2 mg/dl 0.2 mg/dl Aspartate Amino Transf (AST/SGOT) 207 U/L 160 U/L Alanine Aminotransferase (ALT/SGPT) 261 U/L 213 U/L Alkaline Phosphatase 103 U/L 88 U/L Total Creatine Kinase 1716 U/L 1081 U/L 1204 U/L Creatine Kinase MB 8.7 ng/ml 7.1 ng/ml 7.7 ng/ml Creatine Kinase MB Ratio 0.5 0.7 0.6 Troponin I 0.271 ng/ml 0.157 ng/ml 0.142 ng/ml Total Protein 5.3 gm/dl 4.9 gm/dl Albumin 2.3 gm/dl 2.1 gm/dl Assessment and Plan 81 yo M with influenza type A (confirmed during ED visit 09/20/16), pneumonia (on vanc, zosyn, levaquin), with background of lung Ca (on chemotherapy) who had a mild troponin elevation (0.271 on admission, 0.15 now) Pneumonia - Continue current Abx for now, will check MRSA nares to then stop Vanco, and Zosyn when blood cx back. Influenza - Contact / droplet precautions - Continue Tamiflu Mild troponin elevation - Continue to trend, already peaked and decreasing CK elevation - Hold statin for now - Trend Systolic CHF / CAD - Continue aspirin, plavix, digoxin, lopressor BID - Lasix and Spironolactone on hold Proximal leg weakness - PT/ OT- Inital PT brandtal says is safe to go home. - Concern for mets from Lung Ca, will check Lumbar Spine Xray to evaluate COPD - Continue Solumedrol IV, will then change to prednisone 40mg PO CODE STATUS: FULL CODE VTE - SCDs Resident Physician Supervision Note: I was present with Dr. Davies during the history and exam. I discussed the case with the resident and agree with the findings and plan as documented in the note. Any exceptions or clarifications are listed here: Upon my exam, patient complained only of proximal leg weakness, and this has been something he has noted for several weeks. He denied SOB; occ cough, which has improved since his admission. Agree with continued Tamiflu for positive influenza A. If nares negative, agree with tailoring antibiotics. Consider PMR given proximal weakness; could check ESR, but this may be elevated due to his malignancy. He was started on prednisone anyway for his respiratory status so will see if this has any symptomatic benefit. Also agree with holding statin given elevated CK (and will continue to trend). Documented By: Werner Galeano Resident Tracking Resident Involvement: Resident Care Provided Care Provided: Adult Hospital Medicine
[2016-09-21] MEDS: RANITIDINE HCL 150 MG TAB PO SCH ×2 (08:49→20:46)
[2016-09-21] MEDS: GUAIFENESIN 600 MG TABCR PO SCH ×2 (08:49→20:46)
[2016-09-21] MEDS: CLOPIDOGREL BISULFATE 75 MG TAB PO SCH (08:49)
[2016-09-21] MEDS: OSELTAMIVIR PHOSPHATE 75 MG CAP PO SCH ×2 (08:49→20:46)
[2016-09-21] MEDS: ASCORBIC ACID 500 MG TAB PO SCH ×2 (08:50→20:46)
[2016-09-21] MEDS: ALLOPURINOL 100 MG TAB PO SCH (08:50)
[2016-09-21] MEDS: ASPIRIN 81 MG ECTAB PO SCH (08:50)
[2016-09-21] MEDS: MULTIVITAMIN TAB PO SCH (08:50)
[2016-09-21] MEDS: DOCUSATE SODIUM 100 MG CAP PO SCH ×2 (08:50→20:46)
[2016-09-21] MEDS: PANTOprazole SOD 40 MG TAB PO SCH (08:50)
[2016-09-21] MEDS: METOPROLOL TARTRATE 50 MG TAB PO SCH ×2 (08:51→20:48)
[2016-09-21] MEDS: VANCOMYCIN INJ 750 MG in SODIUM CHLORIDE 0.9% 250ML 250 ML IV SCH (12:30)
[2016-09-21 14:00] LABS: CKMB/CK RATIO 0.6 (0-3.0)
--- NOTE | 2016-09-21 15:31 | DIAGNOSTIC IMAGING REPORT ---
L-SPINE MIN 4 VIEWS ROUTINE CLINICAL HISTORY: Lung carcinoma. Back pain. COMPARISON STUDY: No previous studies for comparison. FINDINGS: There is dense calcification within the abdominal aorta. There are 5 lumbar type vertebral bodies present. No acute fractures are visualized. There is a minimal grade 1 spondylolisthesis of L4 and L5. This is felt to be degenerative. There are mild multilevel degenerative changes. No destructive lesions are visualized on conventional radiographic imaging. IMPRESSION: 1. No acute fractures 2. Multilevel degenerative change 3. No destructive lesions are visualized Electronically signed by: Milton Pond M.D. 09/21/2016 3:29 PM
--- NOTE | 2016-09-21 16:51 | ECHOCARDIOGRAM REPORT ---
*NOTICE TO RECEIVING REPUBLICAN AGENCY This information is strictly Confidential and protected under [place] law. [place] law prohibits you from making any further disclosure of this information unless further disclosure is expressly permitted by the written consent of the person to whom it pertains or is authorized by law. A general authorization for the release of medical or other information is not sufficient for this purpose. Hospital accepts no responsibility if the information is made available to any other person, INCLUDING THE PATIENT. Interpretation Summary * Name: DAXA MEJIA JR Study Date: 09/21/2016 10:07 AM BP: 145/80 mmHg * Patient Location: C.2T\S\S233\S\1 HR: 94 * : 1935 (M/d/yyyy) Gender: Male Height: 65 in * Age: 81 yrs Ethnicity: [place] Weight: 143 lb * Ordering Physician: Giorgio Dugan * Referring Physician: Self, Referred * Performed By: Tena Lu RCS * * Reason For Study: Elevated Troponin * BSA: 1.7 m2 * -- Conclusions -- * 1. Normal LV size and wall thickness. * 2. Low normal LV systolic function. LVEF 50-55%. Abnormal septal motion consistent with conduction abnormality/postoperative state. * 3. Normal RV size, mild RV dysfunction. * 4. Mild aortic valve sclerosis without stenosis. * 5. Mild to moderate aortic insufficiency. * 6. Mild mitral regurgitation. * 7. Diastolic dysfunction. * 8. Normal estimated RA and PA pressures. * 9. Compared to prior study on 06/02/2016: No significant changes. Procedure Details * A complete two-dimensional transthoracic echocardiogram was performed (2D, M-mode, Doppler and color flow Doppler). Left Ventricle * The left ventricle is grossly normal size. * There is normal left ventricular wall thickness. * Ejection Fraction = 50-55%. * Diastolic dysfunction * Septal motion is consistent with conduction abnormality. Right Ventricle * The right ventricle is grossly normal size. * There is a pacemaker lead in the right ventricle. * The right ventricular systolic function is mildly reduced. Atria * The left atrium is mildly dilated. * Right atrial size is normal. * No ASD detected; PFO is not assessed. Mitral Valve * The mitral valve leaflets appear thickened, but open well. * There is no mitral valve stenosis. * There is mild mitral regurgitation. Tricuspid Valve * The tricuspid valve is not well visualized. * There is no tricuspid stenosis. * There is trace tricuspid regurgitation. Aortic Valve * Aortic valve sclerosis mild, without significant aortic valvular stenosis. * The aortic valve opens well. * No hemodynamically significant valvular aortic stenosis. * Mild to moderate aortic regurgitation. Pulmonic Valve * The pulmonary valve is inadequately visualized, but the Doppler data is adequate for interpretation. * There is no pulmonic valvular stenosis. * There is no pulmonic valvular regurgitation. Great Vessels * The aortic root and proximal ascending aorta are normal sized. Pericardium/Pleural * There is no pericardial effusion. Great Vessels * Normal inferior vena cava size and collapsability with sniff indicates a normal right atrial pressure of 3 mmHg MMode 2D Measurements and Calculations IVSd 0.94 cm IVSs 1.2 cm LVIDd 3.8 cm LVIDs 3.2 cm LVPWd 0.93 cm LVPWs 1.3 cm IVS/LVPW 1.0 FS 16.5 % EDV(Teich) 61.6 ml ESV(Teich) 39.8 ml EF(Teich) 35.3 % EDV(cubed) 54.4 ml ESV(cubed) 31.7 ml EF(cubed) 41.9 % % IVS thick 28.1 % % LVPW thick 38.4 % LV mass(C)d 106.5 grams LV mass(C)dI 62.1 grams/m\S\2 LV mass(C)s 125.1 grams LV mass(C)sI 72.9 grams/m\S\2 CO(Teich) 1.9 l/min CI(Teich) 1.1 l/min/m\S\2 SV(Teich) 21.7 ml SI(Teich) 12.7 ml/m\S\2 CO(cubed) 2.0 l/min CI(cubed) 1.2 l/min/m\S\2 SV(cubed) 22.8 ml SI(cubed) 13.3 ml/m\S\2 Ao root diam 3.7 cm Ao root area 10.8 cm\S\2 ACS 1.1 cm LA dimension 3.3 cm LA/Ao 0.89 LVAd ap4 28.3 cm\S\2 LVLd ap4 8.7 cm EDV(MOD-sp4) 74.0 ml LVAs ap4 18.0 cm\S\2 LVLs ap4 7.9 cm ESV(MOD-sp4) 35.0 ml EF(MOD-sp4) 52.7 % LVAd ap2 29.8 cm\S\2 LVLd ap2 8.7 cm EDV(MOD-sp2) 86.0 ml LVAs ap2 17.8 cm\S\2 LVLs ap2 8.0 cm ESV(MOD-sp2) 33.0 ml EF(MOD-sp2) 61.6 % CO(MOD-sp4) 3.4 l/min CI(MOD-sp4) 2.0 l/min/m\S\2 SV(MOD-sp4) 39.0 ml SI(MOD-sp4) 22.7 ml/m\S\2 CO(MOD-sp2) 4.7 l/min CI(MOD-sp2) 2.7 l/min/m\S\2 SV(MOD-sp2) 53.0 ml SI(MOD-sp2) 30.9 ml/m\S\2 Doppler Measurements and Calculations Ao V2 max 123.1 cm/sec Ao max PG 6.1 mmHg Ao max PG (full) 2.2 mmHg AI max topher 405.9 cm/sec AI max PG 65.9 mmHg AI dec slope 252.9 cm/sec\S\2 AI P1/2t 470.1 msec LV V1 max PG 3.9 mmHg LV V1 max 98.2 cm/sec PA V2 max 127.1 cm/sec PA max PG 6.5 mmHg TR max topher 240.3 cm/sec
[2016-09-21] MEDS ORDERED: ONDANSETRON INJ 2 MG/ML 2 ML VIAL IV STA (17:52)
--- NOTE | 2016-09-21 17:58 | Progress Note ---
Progress Note Called by nurse that pt vomited up about 4-8 oz of food when he had attempted a regular diet. Was concerned about risk for aspiration. Reviewed BP was WNL, and on my exam this AM pt had hoarse lung sounds and was wheezy prior to potential aspiration. A/P: As he is still nauseated, will provide a further 4mg Zofran IV now, and change the PRN dose to 8mg q6h IV. Will give Phenergan for backup if remains nauseated. If seems dehydrated, would do a fluid bolus but am hesitant with his CHF, and as of yet has not had much volume loss. Will also order Speech eval and CXR for tomorrow, and continue his Abx coverage which would cover an aspiration.
[2016-09-21] MEDS ORDERED: ONDANSETRON INJ 8 MG in DEXTROSE 5% 50ML 50 ML IV PRN (18:00)
[2016-09-21] MEDS ORDERED: PROMETHAZINE HCL INJ 12.5 MG in SODIUM CHLORIDE 0.9% 50ML 50 ML IV PRN (18:00)
[2016-09-21] MEDS: DIGOXIN 0.125 MG TAB PO SCH (18:00)
[2016-09-21] MEDS ORDERED: ATORVASTATIN 40 MG TAB PO SCH (21:00)
[2016-09-21 21:21] LABS: CKMB/CK RATIO 0.8 (0-3.0)
[2016-09-22] VITALS (13 sets, daily range): BP systolic 127–169; BP diastolic 69–90; PULSE 77–105; TEMP 36.4–36.7; O2SAT 93–100
[2016-09-22] MEDS ORDERED: COUGH DROP (SUGAR FREE) LOZ 24 LOZ/1 BOX ONE (00:34)
[2016-09-22] MEDS: METHYLPREDNISOLONE IV 40 MG in SYRINGE 0 ML IV SCH ×3 (00:49→16:10)
[2016-09-22] MEDS: VANCOMYCIN INJ 750 MG in SODIUM CHLORIDE 0.9% 250ML 250 ML IV SCH (01:32)
[2016-09-22] MEDS: LEVALBUTEROL 1.25MG/0.5ML NEB INH SCH ×4 (02:06→20:40)
[2016-09-22] MEDS: IPRATROPIUM BROMIDE NEB SOLN 0.02% 2.5 ML VIAL INH SCH ×4 (02:06→20:40)
[2016-09-22] MEDS: LEVOTHYROXINE 50 MCG TAB PO SCH (05:25)
[2016-09-22 06:04] LABS: COMPLETE YES; HEMATOCRIT 36.9 % (42-52); IG% 0.6 %; LYMPH % 4.2 %; LYMPH ABS # 0.65 K/uL (1.2-3.4); MEAN CELL VOLUME 92.9 fL (80-100); MEAN CORPUSCULAR HGB CONC 33.3 g/dl (32-36); MEAN PLATELET VOLUME 9.5 fL (7.4-10.4); MONO % 3.6 %; NEUT % 91.6 %; PLATELET COUNT 247 K/uL (130-400); RED BLOOD COUNT 3.97 M/uL (4.7-6.1); WHITE BLOOD COUNT 15.43 K/uL (4.8-10.8)
[2016-09-22] MEDS: PIPERACILL/TAZOBAC IV 3.375 GM in DEXTROSE 5% 100ML IV SCH (06:22)
[2016-09-22 06:33] LABS: BUN/CREATININE RATIO 24.1 (10-20); CALCIUM 7.2 mg/dl (8.5-10.1); CREATININE 0.83 mg/dl (0.60-1.40); MAGNESIUM 2.6 mg/dl (1.8-2.4); POTASSIUM 4.1 mmol/L (3.5-5.1)
[2016-09-22 06:50] LABS: ALB/GLOB RATIO 0.7 (0.9-2); CKMB/CK RATIO 0.7 (0-3.0)
--- NOTE | 2016-09-22 08:01 | DIAGNOSTIC IMAGING REPORT ---
CHEST 2 VIEWS ROUTINE CLINICAL HISTORY: Influenza a, elevated troponin I, suspected aspiration. COMPARISON STUDY: 09/20/2016 FINDINGS: The heart is mildly enlarged. There is left lung volume loss. There is a left subclavian pacer/defibrillator present. There is a right-sided A-Port catheter. There is left-sided pleural thickening. There is airspace opacity within the left midlung zone partially obscured by the patient's pacemaker generator. There is right hilar enlargement. Right basilar interstitial opacities remain similar. There is a probable right suprahilar nodule[ IMPRESSION: 1. No significant change from the preceding study 2. Emphysema 3. Left-sided volume loss. Left midlung zone airspace opacities, and left-sided pleural thickening 4. 1 cm right suprahilar nodule 5. Abnormal configuration of right hilum. Mass/adenopathy must 7. Small right pleural effusion be considered 6. Stable right basilar interstitial opacities Electronically signed by: Milton Pond M.D. 09/22/2016 8:00 AM
--- NOTE | 2016-09-22 08:54 | Clinical Documentation Query ---
CLINICAL DOCUMENTATION QUERY In your clinical opinion is this patient being managed for: ( ) Influenza with Suspected Gram Negative or Staphylococcal pneumonia treated with IV Vanco, IV Zosyn, IV Levaquin ( x) Other explanation of clinical findings (Please Explain) Influenza with suspected gram negative or staph pneumonia treated with Levaquin ( ) Unable to determine (Please Define) ( ) Need to Discuss ( ) Not Agree The medical record reflects the following clinical findings, treatment, and risk factors. Clinical Indicators: influenza A & Pneumonia with failed outpatient treatment. Treatment: O2, IV Vanco, IV Zosyn, IV Levaquin, Speech consult, repeat CXR Risk Factors: Age, Cancer, failed outpatient RX Please clarify and document your clinical opinion in the progress notes and discharge summary. Terms such as "probable", "suspected", "likely", "questionable", "possible", or "still to be ruled out" are acceptable. IF IN AGREEMENT, YOU MUST DOCUMENT ABOVE DIAGNOSTIC STATEMENT IN DAILY PROGRESS NOTES AND DISCHARGE SUMMARY. This document is not part of the patient's record. Thank You, Rahul Pratt, RN [phone]
--- NOTE | 2016-09-22 08:57 | Clinical Documentation Query ---
CLINICAL DOCUMENTATION QUERY In your clinical opinion is this patient being managed for: (X ) Influenza with Suspected Gram Negative or Staphylococcal pneumonia treated with IV Vanco, IV Zosyn, IV Levaquin ( ) Other explanation of clinical findings (Please Explain) ( ) Unable to determine (Please Define) ( ) Need to Discuss ( ) Not Agree The medical record reflects the following clinical findings, treatment, and risk factors. Clinical Indicators: influenza A & Pneumonia with failed outpatient treatment. Treatment: O2, IV Vanco, IV Zosyn, IV Levaquin, Speech consult, repeat CXR Risk Factors: Age, Cancer, failed outpatient RX Please clarify and document your clinical opinion in the progress notes and discharge summary. Terms such as "probable", "suspected", "likely", "questionable", "possible", or "still to be ruled out" are acceptable. IF IN AGREEMENT, YOU MUST DOCUMENT ABOVE DIAGNOSTIC STATEMENT IN DAILY PROGRESS NOTES AND DISCHARGE SUMMARY. This document is not part of the patient's record. Thank You, Rahul Pratt RN [phone]
[2016-09-22] MEDS: GUAIFENESIN 600 MG TABCR PO SCH ×2 (09:06→20:38)
[2016-09-22] MEDS: ALLOPURINOL 100 MG TAB PO SCH (09:06)
[2016-09-22] MEDS: CLOPIDOGREL BISULFATE 75 MG TAB PO SCH (09:07)
[2016-09-22] MEDS: DOCUSATE SODIUM 100 MG CAP PO SCH ×2 (09:07→20:37)
[2016-09-22] MEDS: OSELTAMIVIR PHOSPHATE 75 MG CAP PO SCH ×2 (09:07→20:38)
[2016-09-22] MEDS: PANTOprazole SOD 40 MG TAB PO SCH (09:07)
[2016-09-22] MEDS: RANITIDINE HCL 150 MG TAB PO SCH ×2 (09:07→20:39)
[2016-09-22] MEDS: ASCORBIC ACID 500 MG TAB PO SCH ×2 (09:07→20:39)
[2016-09-22] MEDS: ASPIRIN 81 MG ECTAB PO SCH (09:07)
[2016-09-22] MEDS: METOPROLOL TARTRATE 50 MG TAB PO SCH ×2 (09:08→20:38)
[2016-09-22] MEDS: MULTIVITAMIN TAB PO SCH (09:08)
[2016-09-22] MEDS ORDERED: GI COCKTAIL PO STA (09:27)
[2016-09-22] MEDS ORDERED: ALUMINUM/MAGNESIUM SUSP 18 ML, LIDOCAINE HCL 2% VISCOUS SOLN 6 ML, BARCODE IDENTIFIER 1 EA PO SCH ×2 (10:00)
[2016-09-22] MEDS: SODIUM CHLOR 0.45% + 20MEQ KCL 1,000 ML IV SCH (10:00)
[2016-09-22] MEDS ORDERED: VANCOMYCIN TROUGH SCH (11:30)
--- NOTE | 2016-09-22 11:37 | Family Medicine Progress Note ---
Progress Note Date of Service Sep 22, 2016. Subjective Pt evaluation today including: conversation w/ patient, physical exam [place] well this morning, still has cough and O2 requirement. Still feels his breathing is tight. Upon review with Dr Galeano, he was c/o strong heartburn that wasnt being relieved with his usual meds. Constitutional: No chills, No fever, No sweats, No weakness ENT: No hearing loss Respiratory: + cough, + dyspnea on exertion, + shortness of breath, + sputum , + wheezing Cardiovascular: No chest pain Abdomen: + pain, No nausea All Other Systems: Reviewed and Negative Medications Current Inpatient Medications Medications (Trade) Dose Ordered Sig/Sheila Route Start Time Stop Time Status Last Admin Dose Admin Acetaminophen (Tylenol Tab) 650 mg Q4H PRN PO 09/20/16 23:00 10/20/16 22:59 Zolpidem Tartrate (Ambien Tab) 5 mg HSZ PRN PO 09/20/16 23:00 10/20/16 22:59 Nitroglycerin (Nitrostat Tab) 0.4 mg UD PRN SL 09/20/16 23:00 10/20/16 22:59 Allopurinol (Zyloprim Tab) 100 mg QAM PO 09/21/16 09:00 10/21/16 08:59 09/22/16 09:06 100 MG Ascorbic Acid (Vitamin C Tab) 500 mg BID PO 09/21/16 09:00 10/21/16 08:59 09/22/16 09:07 500 MG Aspirin (Ecotrin Tab) 81 mg DAILY PO 09/21/16 09:00 10/21/16 08:59 09/22/16 09:07 81 MG Atorvastatin Calcium (Lipitor Tab) 80 mg HS PO 09/21/16 21:00 10/21/16 20:59 Future Hold Clopidogrel Bisulfate (plAVix TAB) 75 mg DAILY PO 09/21/16 09:00 10/21/16 08:59 09/22/16 09:07 75 MG Digoxin (Lanoxin Tab) 0.125 mg DAILY@1600 PO 09/21/16 16:00 10/21/16 15:59 09/21/16 18:00 0.125 MG Levothyroxine Sodium (Synthroid Tab) 50 mcg DAILYBB PO 09/21/16 06:00 10/21/16 05:59 09/22/16 05:25 50 MCG Metoprolol Tartrate (Lopressor Tab) 50 mg BID PO 09/21/16 09:00 10/21/16 08:59 09/22/16 09:08 50 MG Multivitamins (Multivitamin Tab) 1 tab QAM PO 09/21/16 09:00 10/21/16 08:59 09/22/16 09:08 1 TAB Oseltamivir Phosphate (Tamiflu Cap) 75 mg BID PO 09/21/16 09:00 09/26/16 08:59 09/22/16 09:07 75 MG Ranitidine HCl (zANTac TAB) 150 mg BID PO 09/21/16 09:00 10/21/16 08:59 09/22/16 09:07 150 MG Docusate Sodium (coLACE CAP) 100 mg BID PO 09/21/16 09:00 10/21/16 08:59 09/22/16 09:07 100 MG Pantoprazole Sodium 40 mg 40 mg QAM PO 09/21/16 09:00 10/21/16 08:59 09/22/16 09:07 40 MG Methylprednisolone Sodium Succinate/ Syringe (Solu-Medrol IV/ Syringe) 0.64 ml @ 1.5 mls/min Q8H IV 09/21/16 01:30 10/21/16 01:29 09/22/16 09:07 1.5 MLS/MIN Ondansetron HCl (Zofran Inj) 4 mg Q6H PRN IV 09/20/16 23:00 10/20/16 22:59 09/21/16 17:56 4 MG Guaifenesin (Mucinex Contr Rel Tab) 600 mg BID PO 09/21/16 09:00 10/21/16 08:59 09/22/16 09:06 600 MG Ipratropium [place] (Atrovent 0.02% 0.5MG/2.5ML Neb) 0.5 mg Q6R INH 09/21/16 03:00 10/21/16 02:59 09/22/16 07:58 0.5 MG Levalbuterol (Xopenex 1.25MG/ 0.5ML Neb) 1.25 mg Q6R INH 09/21/16 03:00 10/21/16 02:59 09/22/16 07:58 1.25 MG Ipratropium [place] (Atrovent 0.02% 0.5MG/2.5ML Neb) 0.5 mg Q2H PRN INH 09/21/16 01:30 10/21/16 01:29 Levalbuterol 1.25 mg 1.25 mg Q2H PRN INH 09/21/16 01:45 10/21/16 01:44 Ondansetron HCl 8 mg/Dextrose 54 ml @ 200 mls/hr Q6H PRN IV 09/21/16 18:00 10/21/16 17:59 Promethazine HCl 12.5 mg/Sodium Chloride 50.5 ml @ 204 mls/hr Q6H PRN IV 09/21/16 18:00 10/21/16 17:59 Potassium Chloride/Sodium Chloride 1,000 ml @ 100 mls/hr Q10H IV 09/22/16 10:00 10/22/16 09:59 Al Hydroxide/Mg Hydroxide/ Lidocaine HCl/ Barcode (Maalox Susp/ Viscous Lidocaine 2% Soln) TODAY@1000 PO 09/22/16 10:00 09/22/16 12:00 Objective Vital Signs Date Time Temp Pulse Resp B/P Pulse Ox O2 Delivery O2 Flow Rate FiO2 09/22/16 11:29 36.5 81 20 138/76 97 Nasal Cannula 2.0 09/22/16 08:23 84 16 97 Nasal Cannula 2.0 09/22/16 08:00 Nasal Cannula 2.0 09/22/16 08:00 36.4 86 20 127/74 100 Nasal Cannula 2.0 09/22/16 04:00 Nasal Cannula 2.0 09/22/16 03:13 36.7 85 19 136/73 96 Nasal Cannula 2.0 09/22/16 02:06 86 18 98 Nasal Cannula 2.0 09/22/16 00:20 36.5 77 20 129/73 97 Nasal Cannula 2.0 09/21/16 23:59 Nasal Cannula 2.0 09/21/16 20:30 83 18 96 Nasal Cannula 2.0 09/21/16 20:15 91 137/71 09/21/16 20:00 96 Nasal Cannula 2.0 09/21/16 18:00 84 09/21/16 16:52 36.4 84 16 129/70 96 Nasal Cannula 2.0 09/21/16 16:00 Nasal Cannula 2.0 09/21/16 14:15 88 18 95 Nasal Cannula 2.0 09/21/16 12:00 93 Nasal Cannula 2.0 Physical Exam General Appearance: WD/WN, + mild distress Eyes: normal inspection, PERRL ENT: hearing grossly normal Neck: supple, no JVD Respiratory/Chest: + decreased breath sounds, + wheezing Cardiovascular: regular rate, rhythm, no edema, no murmur Abdomen: normal bowel sounds, non tender, soft Extremities: non-tender, no pedal edema Neurologic/Psychiatric: alert, normal mood/affect, oriented x 3 Skin: no rash Laboratory Results Last 24 Hours Test 09/21/16 12:50 09/21/16 20:38 09/22/16 05:18 09/22/16 09:27 Total Creatine Kinase 1204 U/L 1179 U/L 1300 U/L Creatine Kinase MB 7.7 ng/ml 9.0 ng/ml 9.2 ng/ml Creatine Kinase MB Ratio 0.6 0.8 0.7 Troponin I 0.142 ng/ml 0.143 ng/ml White Blood Count 15.43 K/uL Red Blood Count 3.97 M/uL Hemoglobin 12.3 g/dL Hematocrit 36.9 % Mean Corpuscular Volume 92.9 fL Mean Corpuscular Hemoglobin 31.0 pg Mean Corpuscular Hemoglobin Concent 33.3 g/dl Platelet Count 247 K/uL Mean Platelet Volume 9.5 fL Neutrophils (%) (Auto) 91.6 % Lymphocytes (%) (Auto) 4.2 % Monocytes (%) (Auto) 3.6 % Eosinophils (%) (Auto) 0.0 % Basophils (%) (Auto) 0.0 % Neutrophils # (Auto) 14.13 K/uL Lymphocytes # (Auto) 0.65 K/uL Monocytes # (Auto) 0.56 K/uL Eosinophils # (Auto) 0.00 K/uL Basophils # (Auto) 0.00 K/uL RDW Standard Deviation 65.8 fL RDW Coefficient of Variation 19.0 % Immature Granulocyte % (Auto) 0.6 % Immature Granulocyte # (Auto) 0.09 K/uL Sodium Level 142 mmol/L Potassium Level 4.1 mmol/L Chloride Level 108 mmol/L Carbon Dioxide Level 23 mmol/L Anion Gap 11.0 mmol/L Blood Urea Nitrogen 20 mg/dl Creatinine 0.83 mg/dl Est Creatinine Clear Calc Drug Dose 59.7 ml/min Estimated GFR () 95.0 Estimated GFR (Non- 81.9 BUN/Creatinine Ratio 24.1 Random Glucose 147 mg/dl Calcium Level 7.2 mg/dl Magnesium Level 2.6 mg/dl Total Bilirubin 0.6 mg/dl Direct Bilirubin 0.2 mg/dl Aspartate Amino Transf (AST/SGOT) 151 U/L Alanine Aminotransferase (ALT/SGPT) 241 U/L Alkaline Phosphatase 92 U/L Total Protein 5.3 gm/dl Albumin 2.2 gm/dl Globulin 3.1 gm/dl Albumin/Globulin Ratio 0.7 Test 09/22/16 10:50 Assessment and Plan 81 yo M with influenza type A (confirmed during ED visit 09/20/16), pneumonia (on vanc, zosyn, levaquin), with background of lung Ca (on chemotherapy, but not neutropenic) who had a mild troponin elevation (0.271 on admission, 0.15 now, now downgraded. Pneumonia - Will stop Vanco and Zosyn Heartburn - GI cocktail - Will check EKG to ensure is not angina - Continue cardiac monitoring for now, trend another troponin Dehydration - Will start slow IV fluid hydration 100mL/hour, and r/v tomorrow if indicated Influenza - Contact / droplet precautions - Continue Tamiflu CK elevation - Hold statin for now - Trend Systolic CHF / CAD - Continue aspirin, plavix, digoxin, lopressor BID - Lasix and Spironolactone on hold Proximal leg weakness - PT/ OT- Inital PT michelle says is safe to go home. - Concern for mets from Lung Ca, will check Lumbar Spine Xray to evaluate COPD - Continue Solumedrol IV, will then change to prednisone 40mg PO CODE STATUS: FULL CODE VTE - SCDs Resident Physician Supervision Note: I was present with Dr. Davies during the history and exam. I discussed the case with the resident and agree with the findings and plan as documented in the note. Any exceptions or clarifications are listed here: Lungs with decreased BS and wheezes. Improved, but still not optimal. Episode of GERD this morning - troponin negative and EKG unchanged. Agree with tailoring medications to tamifllu and Levaquin. Hopefully can transition to PO steroids tomorrow and see how he does with increased activity. Documented By: Werner Galeano Resident Tracking Resident Involvement: Resident Care Provided Care Provided: [facility]
[2016-09-22] MEDS ORDERED: LEVOFLOXACIN 750MG / D5W IV SCH (12:00)
[2016-09-22 12:01] LABS: CKMB/CK RATIO 0.8 (0-3.0)
[2016-09-22] MEDS: DIGOXIN 0.125 MG TAB PO SCH (16:09)
[2016-09-23] VITALS (8 sets, daily range): BP systolic 149–159; BP diastolic 74–82; PULSE 79–98; TEMP 36.3–36.5; O2SAT 90–97
[2016-09-23] MEDS: METHYLPREDNISOLONE IV 40 MG in SYRINGE 0 ML IV SCH ×3 (00:04→08:48)
[2016-09-23] MEDS: SODIUM CHLOR 0.45% + 20MEQ KCL 1,000 ML IV SCH ×2 (00:04→07:29)
[2016-09-23] MEDS: LEVALBUTEROL 1.25MG/0.5ML NEB INH SCH ×3 (02:20→20:34)
[2016-09-23] MEDS: IPRATROPIUM BROMIDE NEB SOLN 0.02% 2.5 ML VIAL INH SCH ×3 (02:20→20:34)
[2016-09-23 06:03] LABS: COMPLETE YES; HEMATOCRIT 36.8 % (42-52); IG% 0.4 %; LYMPH % 3.1 %; LYMPH ABS # 0.47 K/uL (1.2-3.4); MEAN CELL VOLUME 92.7 fL (80-100); MEAN CORPUSCULAR HEMOGLOBIN 30.2 pg (25-34); MEAN CORPUSCULAR HGB CONC 32.6 g/dl (32-36); MEAN PLATELET VOLUME 8.9 fL (7.4-10.4); MONO % 3.9 %; NEUT % 92.6 %; PLATELET COUNT 210 K/uL (130-400); RED BLOOD COUNT 3.97 M/uL (4.7-6.1); WHITE BLOOD COUNT 15.07 K/uL (4.8-10.8)
[2016-09-23 06:37] LABS: BUN/CREATININE RATIO 34.2 (10-20); CREATININE 0.58 mg/dl (0.60-1.40); MAGNESIUM 2.6 mg/dl (1.8-2.4)
[2016-09-23 06:39] LABS: ALB/GLOB RATIO 0.8 (0.9-2)
[2016-09-23] MEDS: LEVOTHYROXINE 50 MCG TAB PO SCH (07:29)
[2016-09-23] MEDS: GUAIFENESIN 600 MG TABCR PO SCH ×2 (07:47→20:03)
[2016-09-23] MEDS: CLOPIDOGREL BISULFATE 75 MG TAB PO SCH (07:47)
[2016-09-23] MEDS: DOCUSATE SODIUM 100 MG CAP PO SCH ×2 (07:47→20:02)
[2016-09-23] MEDS: ASPIRIN 81 MG ECTAB PO SCH (07:47)
[2016-09-23] MEDS: MULTIVITAMIN TAB PO SCH (07:47)
[2016-09-23] MEDS: PANTOprazole SOD 40 MG TAB PO SCH (07:47)
[2016-09-23] MEDS: OSELTAMIVIR PHOSPHATE 75 MG CAP PO SCH ×2 (07:47→20:03)
[2016-09-23] MEDS: METOPROLOL TARTRATE 50 MG TAB PO SCH ×2 (07:47→20:02)
[2016-09-23] MEDS: RANITIDINE HCL 150 MG TAB PO SCH ×2 (07:48→20:04)
[2016-09-23] MEDS: ASCORBIC ACID 500 MG TAB PO SCH ×2 (07:48→20:03)
[2016-09-23] MEDS: ALLOPURINOL 100 MG TAB PO SCH (07:48)
[2016-09-23] MEDS ORDERED: NURSING VERBAL MED ORDER ONE (09:45)
[2016-09-23] MEDS ORDERED: FUROSEMIDE INJ 20 MG in SYRINGE 0 ML IV SCH (10:30)
[2016-09-23] MEDS ORDERED: LEVOFLOXACIN 750 MG TAB PO ONE (11:13)
--- NOTE | 2016-09-23 13:23 | Family Medicine Progress Note ---
Progress Note Date of Service Sep 23, 2016. Subjective Pt evaluation today including: conversation w/ patient, physical exam Voiding: no incontinence [place] a lot better today - slept well in private room, feels breathing is better. Left arm became swollen after an IV attempt in the L forearm. received IV fluids overnight. Constitutional: No fever, No sweats, No weight loss Eyes: No worsening of vision ENT: No hearing loss Respiratory: + cough, + sputum, No dyspnea on exertion, No shortness of breath, No wheezing Cardiovascular: No chest pain Abdomen: No constipation, No diarrhea, No nausea, No pain, No vomiting Musculoskeletal: No joint pain Heme: No abnormal bleeding/bruising Endo: No fatigue Skin: No rash All Other Systems: Reviewed and Negative Medications Current Inpatient Medications Medications (Trade) Dose Ordered Sig/Sheila Route Start Time Stop Time Status Last Admin Dose Admin Acetaminophen (Tylenol Tab) 650 mg Q4H PRN PO 09/20/16 23:00 10/20/16 22:59 Zolpidem Tartrate (Ambien Tab) 5 mg HSZ PRN PO 09/20/16 23:00 10/20/16 22:59 Nitroglycerin (Nitrostat Tab) 0.4 mg UD PRN SL 09/20/16 23:00 10/20/16 22:59 Allopurinol (Zyloprim Tab) 100 mg QAM PO 09/21/16 09:00 10/21/16 08:59 09/23/16 07:48 100 MG Ascorbic Acid (Vitamin C Tab) 500 mg BID PO 09/21/16 09:00 10/21/16 08:59 09/23/16 07:48 500 MG Aspirin (Ecotrin Tab) 81 mg DAILY PO 09/21/16 09:00 10/21/16 08:59 09/23/16 07:47 81 MG Atorvastatin Calcium (Lipitor Tab) 80 mg HS PO 09/21/16 21:00 10/21/16 20:59 Future Hold Clopidogrel Bisulfate (plAVix TAB) 75 mg DAILY PO 09/21/16 09:00 10/21/16 08:59 09/23/16 07:47 75 MG Digoxin (Lanoxin Tab) 0.125 mg DAILY@1600 PO 09/21/16 16:00 10/21/16 15:59 09/22/16 16:09 0.125 MG Levothyroxine Sodium (Synthroid Tab) 50 mcg DAILYBB PO 09/21/16 06:00 10/21/16 05:59 09/23/16 07:29 50 MCG Metoprolol Tartrate (Lopressor Tab) 50 mg BID PO 09/21/16 09:00 10/21/16 08:59 09/23/16 07:47 50 MG Multivitamins (Multivitamin Tab) 1 tab QAM PO 09/21/16 09:00 10/21/16 08:59 09/23/16 07:47 1 TAB Oseltamivir Phosphate (Tamiflu Cap) 75 mg BID PO 09/21/16 09:00 09/26/16 08:59 09/23/16 07:47 75 MG Ranitidine HCl (zANTac TAB) 150 mg BID PO 09/21/16 09:00 10/21/16 08:59 09/23/16 07:48 150 MG Docusate Sodium (coLACE CAP) 100 mg BID PO 09/21/16 09:00 10/21/16 08:59 09/23/16 07:47 100 MG Pantoprazole Sodium (Protonix Tab) 40 mg QAM PO 09/21/16 09:00 10/21/16 08:59 09/23/16 07:47 40 MG Ondansetron HCl (Zofran Inj) 4 mg Q6H PRN IV 09/20/16 23:00 10/20/16 22:59 09/21/16 17:56 4 MG Guaifenesin (Mucinex Contr Rel Tab) 600 mg BID PO 09/21/16 09:00 10/21/16 08:59 09/23/16 07:47 600 MG Ipratropium [place] (Atrovent 0.02% 0.5MG/2.5ML Neb) 0.5 mg Q6R INH 09/21/16 03:00 10/21/16 02:59 09/23/16 08:01 0.5 MG Levalbuterol (Xopenex 1.25MG/ 0.5ML Neb) 1.25 mg Q6R INH 09/21/16 03:00 10/21/16 02:59 09/23/16 08:01 1.25 MG Ipratropium [place] (Atrovent 0.02% 0.5MG/2.5ML Neb) 0.5 mg Q2H PRN INH 09/21/16 01:30 10/21/16 01:29 Levalbuterol 1.25 mg 1.25 mg Q2H PRN INH 09/21/16 01:45 10/21/16 01:44 Ondansetron HCl 8 mg/Dextrose 54 ml @ 200 mls/hr Q6H PRN IV 09/21/16 18:00 10/21/16 17:59 Promethazine HCl/ Sodium Chloride (Phenergan Inj/ Nss 50ml) 50.5 ml @ 204 mls/hr Q6H PRN IV 09/21/16 18:00 10/21/16 17:59 Heparin Sodium (Porcine) (Heparin 100 Unit/ml 5ml Flush) 5 ml PRN PRN IV 09/23/16 10:15 10/23/16 10:14 Levofloxacin (Levaquin Tab) 750 mg DAILY@11 PO 09/24/16 11:00 09/29/16 11:01 Prednisone (PredniSONE TAB) 40 mg DAILY PO 09/24/16 08:00 09/28/16 07:59 Objective Vital Signs Date Time Temp Pulse Resp B/P Pulse Ox O2 Delivery O2 Flow Rate FiO2 09/23/16 09:42 Nasal Cannula 4.0 09/23/16 08:09 36.5 88 16 158/74 97 Nasal Cannula 4.0 09/23/16 08:01 98 18 97 Nasal Cannula 2.0 09/23/16 02:20 80 18 96 Nasal Cannula 2.0 09/23/16 00:32 36.3 79 20 159/82 97 3.5 09/23/16 00:00 Nasal Cannula 2.0 09/22/16 20:52 36.5 105 20 160/76 93 Nasal Cannula 3.0 09/22/16 20:40 78 16 96 Nasal Cannula 2.0 09/22/16 20:35 94 169/90 09/22/16 18:50 36.5 89 20 97 2.0 09/22/16 16:09 89 09/22/16 16:00 97 Nasal Cannula 2.0 09/22/16 15:38 36.5 84 20 147/69 97 2.0 09/22/16 14:39 78 16 96 Nasal Cannula 2.0 Physical Exam General Appearance: WD/WN, no apparent distress Eyes: normal inspection, PERRL ENT: hearing grossly normal Neck: supple, no JVD Respiratory/Chest: lungs clear, normal breath sounds, no respiratory distress, no accessory muscle use, + pertinent finding (on 2L NC) Cardiovascular: regular rate, rhythm, no murmur Abdomen: normal bowel sounds, non tender, soft Extremities: non-tender, normal inspection, no pedal edema Neurologic/Psychiatric: alert, normal mood/affect, oriented x 3 Skin: no rash Laboratory Results Last 24 Hours Test 09/23/16 05:25 White Blood Count 15.07 K/uL Red Blood Count 3.97 M/uL Hemoglobin 12.0 g/dL Hematocrit 36.8 % Mean Corpuscular Volume 92.7 fL Mean Corpuscular Hemoglobin 30.2 pg Mean Corpuscular Hemoglobin Concent 32.6 g/dl Platelet Count 210 K/uL Mean Platelet Volume 8.9 fL Neutrophils (%) (Auto) 92.6 % Lymphocytes (%) (Auto) 3.1 % Monocytes (%) (Auto) 3.9 % Eosinophils (%) (Auto) 0.0 % Basophils (%) (Auto) 0.0 % Neutrophils # (Auto) 13.95 K/uL Lymphocytes # (Auto) 0.47 K/uL Monocytes # (Auto) 0.59 K/uL Eosinophils # (Auto) 0.00 K/uL Basophils # (Auto) 0.00 K/uL RDW Standard Deviation 66.4 fL RDW Coefficient of Variation 19.4 % Immature Granulocyte % (Auto) 0.4 % Immature Granulocyte # (Auto) 0.06 K/uL Sodium Level 144 mmol/L Potassium Level 5.0 mmol/L Chloride Level 110 mmol/L Carbon Dioxide Level 26 mmol/L Anion Gap 8.0 mmol/L Blood Urea Nitrogen 20 mg/dl Creatinine 0.58 mg/dl Est Creatinine Clear Calc Drug Dose 85.4 ml/min Estimated GFR () 110.0 Estimated GFR (Non- 94.9 BUN/Creatinine Ratio 34.2 Random Glucose 130 mg/dl Calcium Level 7.0 mg/dl Magnesium Level 2.6 mg/dl Total Bilirubin 0.5 mg/dl Direct Bilirubin 0.2 mg/dl Aspartate Amino Transf (AST/SGOT) 130 U/L Alanine Aminotransferase (ALT/SGPT) 250 U/L Alkaline Phosphatase 102 U/L Total Creatine Kinase 981 U/L Creatine Kinase MB 9.5 ng/ml Creatine Kinase MB Ratio 1.0 Total Protein 5.0 gm/dl Albumin 2.2 gm/dl Globulin 2.8 gm/dl Albumin/Globulin Ratio 0.8 Assessment and Plan 81 yo M with influenza type A (confirmed during ED visit 09/20/16), pneumonia (on vanc, zosyn, levaquin), with background of lung Ca (on chemotherapy, but not neutropenic) who had a mild troponin elevation (0.271 on admission, 0.15 now, now downgraded Influenza with strep or staph pneumonia - Will switch from IV to PO Levaquin Heartburn - GI cocktail resolved issue - Continue home dose of PPI / Zantac Left upper extremity edema - US to evaluate for clot Influenza - Contact / droplet precautions - Continue Tamiflu CK elevation, improving - Hold statin for now - Trend Systolic CHF / CAD - Continue aspirin, plavix, digoxin, lopressor BID - Lasix 20mg IV given today, will go back to PO tomorrow - Spironolactone 25mg PO on hold, will restart tomorrow Proximal leg weakness - PT/ OT- Inital PT michelle says is safe to go home. - Lumbar Spine XRay: Negative COPD - Will switch to PO Prednisone 40mg x 5 days CODE STATUS: FULL CODE VTE - SCDs Resident Physician Supervision Note: I was present with resident physician during the history and exam. I discussed the case with the resident and agree with the findings and plan as documented in the note. Any exceptions or clarifications are listed here: Clinically, he appears better from a pulmonary standpoint. His lung exam is markedly improved today compared to yesterday. The LUE edema is concerning. Agree with removing IV from the arm and checking UE doppler. Documented By: Werner Galeano Resident Tracking Resident Involvement: Resident Care Provided Care Provided: Adult Hospital Medicine
--- NOTE | 2016-09-23 14:39 | DIAGNOSTIC IMAGING REPORT ---
LEFT UPPER EXTREMITY VENOUS DOPPLER HISTORY: 1 day x swelling left arm COMPARISON STUDY: Left arm venous Doppler 02/03/2016. FINDINGS: The left internal jugular vein is patent. There is normal flow within the left subclavian vein. There is normal flow and compressibility within the left axillary, basilic, brachial, radial, ulnar, and visualized cephalic veins. IMPRESSION: No DVT within the left upper extremity. Electronically signed by: Kevin Phelps M.D. 09/23/2016 2:37 PM
[2016-09-23] MEDS: DIGOXIN 0.125 MG TAB PO SCH (15:38)
[2016-09-24] VITALS (8 sets, daily range): BP systolic 145–162; BP diastolic 75–82; PULSE 75–95; TEMP 36.5–36.7; O2SAT 90–99
[2016-09-24] MEDS: IPRATROPIUM BROMIDE NEB SOLN 0.02% 2.5 ML VIAL INH SCH ×5 (00:09→19:15)
[2016-09-24] MEDS: LEVALBUTEROL 1.25MG/0.5ML NEB INH SCH ×5 (00:09→19:15)
[2016-09-24] MEDS: LEVOTHYROXINE 50 MCG TAB PO SCH (05:42)
[2016-09-24] MEDS: DOCUSATE SODIUM 100 MG CAP PO SCH ×2 (07:41→20:03)
[2016-09-24] MEDS: ASPIRIN 81 MG ECTAB PO SCH (07:41)
[2016-09-24] MEDS: MULTIVITAMIN TAB PO SCH (07:41)
[2016-09-24] MEDS: ALLOPURINOL 100 MG TAB PO SCH (07:41)
[2016-09-24] MEDS: CLOPIDOGREL BISULFATE 75 MG TAB PO SCH (07:41)
[2016-09-24] MEDS: OSELTAMIVIR PHOSPHATE 75 MG CAP PO SCH ×2 (07:41→20:03)
[2016-09-24] MEDS: PANTOprazole SOD 40 MG TAB PO SCH (07:41)
[2016-09-24] MEDS: ASCORBIC ACID 500 MG TAB PO SCH ×2 (07:41→20:03)
[2016-09-24] MEDS: METOPROLOL TARTRATE 50 MG TAB PO SCH ×2 (07:42→20:03)
[2016-09-24] MEDS: GUAIFENESIN 600 MG TABCR PO SCH ×2 (07:42→20:03)
[2016-09-24] MEDS: RANITIDINE HCL 150 MG TAB PO SCH ×2 (07:42→20:03)
[2016-09-24 09:06] LABS: CREATININE 0.6 mg/dl (0.60-1.40)
[2016-09-24 09:07] LABS: BUN/CREATININE RATIO 35.7 (10-20); CALCIUM 7.4 mg/dl (8.5-10.1); POTASSIUM 4.5 mmol/L (3.5-5.1)
[2016-09-24 09:11] LABS: ALB/GLOB RATIO 0.8 (0.9-2); CKMB/CK RATIO 1.1 (0-3.0)
[2016-09-24] MEDS ORDERED: SPIRONOLACTONE 25 MG TAB PO ONE (11:02)
[2016-09-24] MEDS: LEVOFLOXACIN 750 MG TAB PO SCH (11:05)
[2016-09-24] MEDS: DIGOXIN 0.125 MG TAB PO SCH (15:41)
--- NOTE | 2016-09-24 18:59 | Family Medicine Progress Note ---
Progress Note Date of Service Sep 24, 2016. Subjective Pt evaluation today including: conversation w/ patient, physical exam Spoke to patients son this morning on the phone, then later again this evening Overall conclusion is that though initially patient was hesitant to go for rehab , now he is agreeable to a short period. Otherwise, he reports feeling well. He still has some cough. He reports the left arm swelling is no different. Additional Comments: A 10 point ROS was completed and negative, specifically for fever, chest pain, or worsening shortness of breath. Medications Current Inpatient Medications Medications (Trade) Dose Ordered Sig/Sheila Route Start Time Stop Time Status Last Admin Dose Admin Acetaminophen (Tylenol Tab) 650 mg Q4H PRN PO 09/20/16 23:00 10/20/16 22:59 Zolpidem Tartrate (Ambien Tab) 5 mg HSZ PRN PO 09/20/16 23:00 10/20/16 22:59 Nitroglycerin (Nitrostat Tab) 0.4 mg UD PRN SL 09/20/16 23:00 10/20/16 22:59 Allopurinol (Zyloprim Tab) 100 mg QAM PO 09/21/16 09:00 10/21/16 08:59 09/24/16 07:41 100 MG Ascorbic Acid (Vitamin C Tab) 500 mg BID PO 09/21/16 09:00 10/21/16 08:59 09/24/16 07:41 500 MG Aspirin (Ecotrin Tab) 81 mg DAILY PO 09/21/16 09:00 10/21/16 08:59 09/24/16 07:41 81 MG Atorvastatin Calcium (Lipitor Tab) 80 mg HS PO 09/21/16 21:00 10/21/16 20:59 Future Hold Clopidogrel Bisulfate (plAVix TAB) 75 mg DAILY PO 09/21/16 09:00 10/21/16 08:59 09/24/16 07:41 75 MG Digoxin (Lanoxin Tab) 0.125 mg DAILY@1600 PO 09/21/16 16:00 10/21/16 15:59 09/24/16 15:41 0.125 MG Levothyroxine Sodium (Synthroid Tab) 50 mcg DAILYBB PO 09/21/16 06:00 10/21/16 05:59 09/24/16 05:42 50 MCG Metoprolol Tartrate (Lopressor Tab) 50 mg BID PO 09/21/16 09:00 10/21/16 08:59 09/24/16 07:42 50 MG Multivitamins (Multivitamin Tab) 1 tab QAM PO 09/21/16 09:00 10/21/16 08:59 09/24/16 07:41 1 TAB Oseltamivir Phosphate (Tamiflu Cap) 75 mg BID PO 09/21/16 09:00 09/26/16 08:59 09/24/16 07:41 75 MG Ranitidine HCl (zANTac TAB) 150 mg BID PO 09/21/16 09:00 10/21/16 08:59 09/24/16 07:42 150 MG Docusate Sodium (coLACE CAP) 100 mg BID PO 09/21/16 09:00 10/21/16 08:59 09/24/16 07:41 100 MG Pantoprazole Sodium (Protonix Tab) 40 mg QAM PO 09/21/16 09:00 10/21/16 08:59 09/24/16 07:41 40 MG Ondansetron HCl (Zofran Inj) 4 mg Q6H PRN IV 09/20/16 23:00 10/20/16 22:59 09/21/16 17:56 4 MG Guaifenesin (Mucinex Contr Rel Tab) 600 mg BID PO 09/21/16 09:00 10/21/16 08:59 09/24/16 07:42 600 MG Ipratropium [place] (Atrovent 0.02% 0.5MG/2.5ML Neb) 0.5 mg Q6R INH 09/21/16 03:00 10/21/16 02:59 09/24/16 14:15 0.5 MG Levalbuterol (Xopenex 1.25MG/ 0.5ML Neb) 1.25 mg Q6R INH 09/21/16 03:00 10/21/16 02:59 09/24/16 14:15 1.25 MG Ipratropium [place] (Atrovent 0.02% 0.5MG/2.5ML Neb) 0.5 mg Q2H PRN INH 09/21/16 01:30 10/21/16 01:29 Levalbuterol 1.25 mg 1.25 mg Q2H PRN INH 09/21/16 01:45 10/21/16 01:44 Ondansetron HCl 8 mg/Dextrose 54 ml @ 200 mls/hr Q6H PRN IV 09/21/16 18:00 10/21/16 17:59 Promethazine HCl/ Sodium Chloride (Phenergan Inj/ Nss 50ml) 50.5 ml @ 204 mls/hr Q6H PRN IV 09/21/16 18:00 10/21/16 17:59 Heparin Sodium (Porcine) (Heparin 100 Unit/ml 5ml Flush) 5 ml PRN PRN IV 09/23/16 10:15 10/23/16 10:14 09/24/16 08:27 5 ML Levofloxacin (Levaquin Tab) 750 mg DAILY@11 PO 09/24/16 11:00 09/29/16 11:01 09/24/16 11:05 750 MG Prednisone (PredniSONE TAB) 40 mg DAILY PO 09/24/16 08:00 09/28/16 07:59 09/24/16 07:41 40 MG Spironolactone (Aldactone Tab) 25 mg QAM PO 09/25/16 08:00 10/25/16 07:59 Objective Vital Signs Date Time Temp Pulse Resp B/P Pulse Ox O2 Delivery O2 Flow Rate FiO2 09/24/16 16:00 Nasal Cannula 2.0 09/24/16 15:41 96 09/24/16 15:35 36.7 95 16 149/82 99 Nasal Cannula 2.0 09/24/16 14:15 86 18 97 Nasal Cannula 2.0 09/24/16 08:20 36.5 94 18 162/77 95 2.0 09/24/16 08:00 Nasal Cannula 09/24/16 07:09 94 18 95 Nasal Cannula 2.0 09/24/16 05:26 88 18 92 Nasal Cannula 2.0 09/24/16 01:09 Nasal Cannula 2.0 09/24/16 00:21 36.5 75 18 145/75 93 Nasal Cannula 2.0 09/24/16 00:09 88 18 90 Nasal Cannula 2.0 09/23/16 20:35 97 18 90 Nasal Cannula 2.0 09/23/16 20:00 89 149/80 Physical Exam General Appearance: WD/WN, no apparent distress Eyes: normal inspection ENT: hearing grossly normal Neck: supple, no JVD Respiratory/Chest: lungs clear, normal breath sounds, no respiratory distress, + pertinent finding (on 2L nasal cannula) Cardiovascular: regular rate, rhythm, no murmur Abdomen: normal bowel sounds, non tender, soft Extremities: + pertinent finding (LEFT upper extremity edema) Neurologic/Psychiatric: alert, normal mood/affect, oriented x 3 Skin: warm/dry, + pertinent finding (ecchymosis diffusely over arms) Laboratory Results Last 24 Hours Test 09/24/16 08:14 Sodium Level 144 mmol/L Potassium Level 4.5 mmol/L Chloride Level 107 mmol/L Carbon Dioxide Level 28 mmol/L Anion Gap 9.0 mmol/L Blood Urea Nitrogen 21 mg/dl Creatinine 0.60 mg/dl Est Creatinine Clear Calc Drug Dose 82.6 ml/min Estimated GFR () 108.5 Estimated GFR (Non- 93.6 BUN/Creatinine Ratio 35.7 Random Glucose 98 mg/dl Calcium Level 7.4 mg/dl Total Bilirubin 0.5 mg/dl Aspartate Amino Transf (AST/SGOT) 137 U/L Alanine Aminotransferase (ALT/SGPT) 311 U/L Alkaline Phosphatase 119 U/L Total Creatine Kinase 711 U/L Creatine Kinase MB 8.1 ng/ml Creatine Kinase MB Ratio 1.1 Total Protein 5.3 gm/dl Albumin 2.3 gm/dl Globulin 3.0 gm/dl Albumin/Globulin Ratio 0.8 Assessment and Plan 81 yo M with influenza type A (confirmed during ED visit 09/20/16), pneumonia (On PO Levaquin), with background of lung Ca (on chemotherapy, but not neutropenic) . Active issues includes deconditioning and uncertain discharge destination. Influenza with strep or staph pneumonia - Continue PO Levaquin Heartburn, resolved. - Continue home dose of PPI / Zantac Left upper extremity edema - US negative - AGNES compression hose Influenza - Contact / droplet precautions - Continue Tamiflu CK elevation, improving - Hold statin for now - Trend - currently improving Systolic CHF / CAD - Continue aspirin, plavix, digoxin, lopressor BID - Will resume daily Lasix 40mg PO - Restarted daily spironolactone 25mg daily Proximal leg weakness - PT/ OT - Would benefit from further rehab. Has not participated in PT since initial eval. - Lumbar Spine XRay: Negative COPD - Will switch to PO Prednisone 40mg x 5 days CODE STATUS: FULL CODE VTE - SCDs Disposition After further discussion with the patients son, we will likely go ahead with [facility] referral tomorrow AM. Pt is medically stable now. Resident Physician Supervision Note: I was present with Dr. Davies during the history and exam. I discussed the case with the resident and agree with the findings and plan as documented in the note. Any exceptions or clarifications are listed here: Documented By: Werner Galeano Resident Tracking Resident Involvement: Resident Care Provided Care Provided: Adult Hospital Medicine
[2016-09-25] VITALS (11 sets, daily range): BP systolic 120–169; BP diastolic 68–80; PULSE 64–102; TEMP 36.3–36.8; O2SAT 92–97
[2016-09-25] MEDS: IPRATROPIUM BROMIDE NEB SOLN 0.02% 2.5 ML VIAL INH SCH ×4 (01:20→19:42)
[2016-09-25] MEDS: LEVALBUTEROL 1.25MG/0.5ML NEB INH SCH ×4 (01:20→19:42)
[2016-09-25] MEDS: LEVOTHYROXINE 50 MCG TAB PO SCH (06:59)
[2016-09-25] MEDS: ALLOPURINOL 100 MG TAB PO SCH (07:59)
[2016-09-25] MEDS: OSELTAMIVIR PHOSPHATE 75 MG CAP PO SCH ×2 (07:59→20:48)
[2016-09-25] MEDS: DOCUSATE SODIUM 100 MG CAP PO SCH ×2 (07:59→20:00)
[2016-09-25] MEDS: GUAIFENESIN 600 MG TABCR PO SCH ×2 (07:59→20:47)
[2016-09-25] MEDS: CLOPIDOGREL BISULFATE 75 MG TAB PO SCH (07:59)
[2016-09-25] MEDS: PANTOprazole SOD 40 MG TAB PO SCH (07:59)
[2016-09-25] MEDS: ASPIRIN 81 MG ECTAB PO SCH (07:59)
[2016-09-25] MEDS: SPIRONOLACTONE 25 MG TAB PO SCH (07:59)
[2016-09-25] MEDS: METOPROLOL TARTRATE 50 MG TAB PO SCH ×2 (07:59→20:47)
[2016-09-25] MEDS: ASCORBIC ACID 500 MG TAB PO SCH ×2 (07:59→20:47)
[2016-09-25] MEDS: MULTIVITAMIN TAB PO SCH (08:02)
[2016-09-25] MEDS: RANITIDINE HCL 150 MG TAB PO SCH ×2 (08:21→20:46)
[2016-09-25] MEDS ORDERED: FUROSEMIDE 20 MG/2 ML UDP PO ONE (09:13)
[2016-09-25] MEDS ORDERED: FUROSEMIDE 10 MG/ML 60ML BOTTLE PO ONE (10:00)
[2016-09-25] MEDS ORDERED: NF406 PO (10:32)
[2016-09-25] MEDS ORDERED: PRD20 PO (10:32)
[2016-09-25] MEDS ORDERED: LEVO-366 PO (10:32)
--- NOTE | 2016-09-25 10:34 | Discharge Instructions ---
Discharge Instructions Admission Reason for Admission: Elevated Troponin I Level, Influenza A Discharge Discharge Diagnosis / Problem: Influenza, L Lobe Pneumonia Discharge Goals Goal(s): Improve disease control Activity Recommendations Activity Level: Ambulates in room Therapies: Physical Therapy . Additional Information Patient informed of condition: Yes Advance Directives: No DNR: No Level of Care: Acute Rehab Communicable Disease: Yes (Influenza - on Droplet precautons) Prognosis: Improving Shell Catheter: No Instructions / Follow-Up Instructions / Follow-Up Follow up at [facility] for rehab Follow up with PCP within 1-2 weeks CONTINUE Levaquin PO for pneumona, tx started 09/20/16 CONTINUE Tamiflu for INFLUENZA A, tx started 09/20/16 CONTINUE Prednisone 40mg daily for 3 more days for COPD exacerbation, then go back to usual dose of 20mg daily Current Hospital Diet Patient's current hospital diet: Regular Diet Discharge Diet Recommended Diet: AHA Diet (Heart Healthy) Diet Texture: Mechanical Soft (ground) Pending Studies Studies pending at discharge: no Laboratory Results Hemoglobin A1c Test 06/25/16 09:39 Range/Units Estimated Average Glucose 126 mg/dl Hemoglobin A1c 6.0 H 4.5-5.6 % Lipid Panel Test 06/25/16 09:39 Range/Units Triglycerides Level 183 H 0-150 mg/dl Cholesterol Level 159 0-200 mg/dl HDL Cholesterol 49 mg/dl Cholesterol/HDL Ratio 3.2 LDL Cholesterol, Calculated 73 mg/dl Medical Emergencies . Who to Call and When: Medical Emergencies: If at any time you feel your situation is an emergency, please call 911 immediately. . Non-Emergent Contact Non-Emergency issues call your: Primary Care Provider . . "Provider Documentation" section prepared by Tania Davies. Core Measure Problem Core Measures: None
[2016-09-25] MEDS: LEVOFLOXACIN 750 MG TAB PO SCH (11:08)
--- NOTE | 2016-09-25 14:52 | Family Medicine Progress Note ---
Progress Note Date of Service Sep 25, 2016. Subjective Pt evaluation today including: conversation w/ patient, conversation w/ family , physical exam Pt medically stable to go to [facility], and he agrees with this Denies any new pain Persistent cough, no change Had a trial without O2 and sats were 95% Constitutional: + weakness, No fever, No sweats, No weight loss ENT: No hearing loss Respiratory: + cough, + dyspnea on exertion, + sputum, No shortness of breath, No wheezing Abdomen: No constipation, No nausea, No pain, No vomiting Skin: No rash All Other Systems: Reviewed and Negative Medications Current Inpatient Medications Medications (Trade) Dose Ordered Sig/Sheila Route Start Time Stop Time Status Last Admin Dose Admin Acetaminophen (Tylenol Tab) 650 mg Q4H PRN PO 09/20/16 23:00 10/20/16 22:59 Zolpidem Tartrate (Ambien Tab) 5 mg HSZ PRN PO 09/20/16 23:00 10/20/16 22:59 Nitroglycerin (Nitrostat Tab) 0.4 mg UD PRN SL 09/20/16 23:00 10/20/16 22:59 Allopurinol (Zyloprim Tab) 100 mg QAM PO 09/21/16 09:00 10/21/16 08:59 09/25/16 07:59 100 MG Ascorbic Acid (Vitamin C Tab) 500 mg BID PO 09/21/16 09:00 10/21/16 08:59 09/25/16 07:59 500 MG Aspirin (Ecotrin Tab) 81 mg DAILY PO 09/21/16 09:00 10/21/16 08:59 09/25/16 07:59 81 MG Atorvastatin Calcium (Lipitor Tab) 80 mg HS PO 09/21/16 21:00 10/21/16 20:59 Future Hold Clopidogrel Bisulfate (plAVix TAB) 75 mg DAILY PO 09/21/16 09:00 10/21/16 08:59 09/25/16 07:59 75 MG Digoxin (Lanoxin Tab) 0.125 mg DAILY@1600 PO 09/21/16 16:00 10/21/16 15:59 09/24/16 15:41 0.125 MG Levothyroxine Sodium (Synthroid Tab) 50 mcg DAILYBB PO 09/21/16 06:00 10/21/16 05:59 09/25/16 06:59 50 MCG Metoprolol Tartrate (Lopressor Tab) 50 mg BID PO 09/21/16 09:00 10/21/16 08:59 09/25/16 07:59 50 MG Multivitamins (Multivitamin Tab) 1 tab QAM PO 09/21/16 09:00 10/21/16 08:59 09/25/16 08:02 1 TAB Oseltamivir Phosphate (Tamiflu Cap) 75 mg BID PO 09/21/16 09:00 09/26/16 08:59 09/25/16 07:59 75 MG Ranitidine HCl (zANTac TAB) 150 mg BID PO 09/21/16 09:00 10/21/16 08:59 09/25/16 08:21 150 MG Docusate Sodium (coLACE CAP) 100 mg BID PO 09/21/16 09:00 10/21/16 08:59 09/25/16 07:59 100 MG Pantoprazole Sodium (Protonix Tab) 40 mg QAM PO 09/21/16 09:00 10/21/16 08:59 09/25/16 07:59 40 MG Ondansetron HCl (Zofran Inj) 4 mg Q6H PRN IV 09/20/16 23:00 10/20/16 22:59 09/21/16 17:56 4 MG Guaifenesin (Mucinex Contr Rel Tab) 600 mg BID PO 09/21/16 09:00 10/21/16 08:59 09/25/16 07:59 600 MG Ipratropium [place] (Atrovent 0.02% 0.5MG/2.5ML Neb) 0.5 mg Q6R INH 09/21/16 03:00 10/21/16 02:59 09/25/16 11:20 0.5 MG Levalbuterol (Xopenex 1.25MG/ 0.5ML Neb) 1.25 mg Q6R INH 09/21/16 03:00 10/21/16 02:59 09/25/16 11:20 1.25 MG Ipratropium [place] (Atrovent 0.02% 0.5MG/2.5ML Neb) 0.5 mg Q2H PRN INH 09/21/16 01:30 10/21/16 01:29 Levalbuterol 1.25 mg 1.25 mg Q2H PRN INH 09/21/16 01:45 10/21/16 01:44 Ondansetron HCl 8 mg/Dextrose 54 ml @ 200 mls/hr Q6H PRN IV 09/21/16 18:00 10/21/16 17:59 Promethazine HCl/ Sodium Chloride (Phenergan Inj/ Nss 50ml) 50.5 ml @ 204 mls/hr Q6H PRN IV 09/21/16 18:00 10/21/16 17:59 Heparin Sodium (Porcine) (Heparin 100 Unit/ml 5ml Flush) 5 ml PRN PRN IV 09/23/16 10:15 10/23/16 10:14 09/25/16 11:23 5 ML Levofloxacin (Levaquin Tab) 750 mg DAILY@11 PO 09/24/16 11:00 09/29/16 11:01 09/25/16 11:08 750 MG Prednisone (PredniSONE TAB) 40 mg DAILY PO 09/24/16 08:00 09/28/16 07:59 09/25/16 07:59 40 MG Spironolactone (Aldactone Tab) 25 mg QAM PO 09/25/16 08:00 10/25/16 07:59 09/25/16 07:59 25 MG Furosemide (Lasix Oral Soln) 20 mg QAM PO 09/26/16 08:00 10/26/16 07:59 Tiotropium [place] (Spiriva Handihaler Inhaler) 2 puff BID INH 09/25/16 20:00 10/25/16 19:59 UNV Objective Vital Signs Date Time Temp Pulse Resp B/P Pulse Ox O2 Delivery O2 Flow Rate FiO2 09/25/16 11:20 89 18 95 Nasal Cannula 2.0 09/25/16 09:33 96 Room Air 09/25/16 08:18 36.8 85 16 169/79 94 2.0 09/25/16 08:00 Nasal Cannula 09/25/16 07:13 89 18 95 Nasal Cannula 2.0 09/25/16 01:21 88 18 96 Nasal Cannula 2.0 09/25/16 00:22 36.6 74 18 146/75 94 Room Air 09/25/16 00:00 94 Nasal Cannula 2.0 09/24/16 19:15 88 18 96 Nasal Cannula 2.0 09/24/16 16:00 Nasal Cannula 2.0 09/24/16 15:41 96 09/24/16 15:35 36.7 95 16 149/82 99 Nasal Cannula 2.0 Physical Exam General Appearance: WD/WN, no apparent distress Eyes: normal inspection, PERRL ENT: hearing grossly normal Neck: supple, no JVD Respiratory/Chest: + wheezing (occasional expiratory wheeze) Cardiovascular: regular rate, rhythm, no murmur Abdomen: normal bowel sounds, non tender, soft Extremities: non-tender, normal inspection, + pertinent finding (Persistent L Upper extremity Edema) Neurologic/Psychiatric: alert, normal mood/affect, oriented x 3 Assessment and Plan 81 yo M with influenza type A (confirmed during ED visit 09/20/16), pneumonia (On PO Levaquin), with background of lung Ca (on chemotherapy, but not neutropenic) . Active issues includes deconditioning and uncertain discharge destination. Influenza with strep or staph pneumonia - Continue PO Levaquin, complete 7 day course (ends 09/26) Heartburn, resolved. - Continue home dose of PPI / Zantac Left upper extremity edema - US negative - AGNES compression hose Influenza - Contact / droplet precautions - Continue Tamiflu CK elevation, improving and Transaminitis - Hold statin for now - Trend - currently improving Systolic CHF / CAD - Continue aspirin, plavix, digoxin, lopressor BID - Will resume daily Lasix 20mg PO - Restarted daily spironolactone 25mg daily Proximal leg weakness - PT/ OT - Referral to [facility] - Lumbar Spine XRay: Negative COPD - Will switch to PO Prednisone 40mg x 5 days CODE STATUS: FULL CODE VTE - SCDs Disposition Pending [facility] placement Resident Physician Supervision Note: I was present with the resident during the history and exam. I discussed the case with the resident and agree with the findings and plan as documented in the note. Any exceptions or clarifications are listed here: 81-year-old male admitted with pneumonia in the setting of positive influenza A and known pulmonary malignancy. Due to all of the above, he is deconditioned and would benefit from inpatient rehabilitation prior to a hopeful return to his current residence. On examination, he does have mildly coarse breath sounds with end expiratory wheezing although he is overall improved from his admission. I suspect his lung exam is nearing his baseline given his history of pulmonary malignancy. We'll continue current care pending placement. Documented By: Werner Galeano Resident Tracking Resident Involvement: Resident Care Provided Care Provided: Adult Hospital Medicine
[2016-09-25] MEDS: DIGOXIN 0.125 MG TAB PO SCH (16:58)
[2016-09-26] VITALS (17 sets, daily range): BP systolic 115–176; BP diastolic 61–90; PULSE 61–103; TEMP 36.3–36.8; O2SAT 92–100
[2016-09-26] MEDS: IPRATROPIUM BROMIDE NEB SOLN 0.02% 2.5 ML VIAL INH SCH ×4 (02:24→20:46)
[2016-09-26] MEDS: LEVALBUTEROL 1.25MG/0.5ML NEB INH SCH ×4 (02:24→20:46)
[2016-09-26] MEDS: IPRATROPIUM BROMIDE NEB SOLN 0.02% 2.5 ML VIAL INH PRN ×2 (04:59→23:48)
[2016-09-26] MEDS: LEVALBUTEROL 1.25MG/0.5ML NEB INH PRN ×2 (04:59→23:48)
[2016-09-26] MEDS: LEVOTHYROXINE 50 MCG TAB PO SCH (06:25)
[2016-09-26] MEDS: OSELTAMIVIR PHOSPHATE 75 MG CAP PO SCH (07:56)
[2016-09-26] MEDS: GUAIFENESIN 600 MG TABCR PO SCH ×2 (07:56→19:56)
[2016-09-26] MEDS: CLOPIDOGREL BISULFATE 75 MG TAB PO SCH (07:57)
[2016-09-26] MEDS: ALLOPURINOL 100 MG TAB PO SCH (07:57)
[2016-09-26] MEDS: DOCUSATE SODIUM 100 MG CAP PO SCH ×2 (07:57→19:56)
[2016-09-26] MEDS: PANTOprazole SOD 40 MG TAB PO SCH (07:57)
[2016-09-26] MEDS: ASPIRIN 81 MG ECTAB PO SCH (07:57)
[2016-09-26] MEDS: MULTIVITAMIN TAB PO SCH (07:57)
[2016-09-26] MEDS: METOPROLOL TARTRATE 50 MG TAB PO SCH ×2 (07:57→19:56)
[2016-09-26] MEDS: ASCORBIC ACID 500 MG TAB PO SCH ×2 (07:57→19:56)
[2016-09-26] MEDS: SPIRONOLACTONE 25 MG TAB PO SCH (07:57)
[2016-09-26] MEDS: FUROSEMIDE 10 MG/ML 60ML BOTTLE PO SCH (07:58)
[2016-09-26] MEDS: TIOTROPIUM BROMIDE 5 PUFF/90 MCG INH INH SCH (07:59)
[2016-09-26] MEDS ORDERED: FUROSEMIDE 20 MG/2 ML UDP PO SCH (08:00)
[2016-09-26] MEDS: RANITIDINE HCL 150 MG TAB PO SCH ×2 (08:14→19:56)
[2016-09-26] MEDS: LEVOFLOXACIN 750 MG TAB PO SCH (10:51)
--- NOTE | 2016-09-26 16:00 | Hospitalist Progress Note ---
Hospitalist Progress Note Date of Service Sep 26, 2016. Subjective Pt evaluation today including: conversation w/ patient, conversation w/ family , physical exam, chart review, lab review, review of studies, review of inpatient medication list Pain: denies PO Intake: good Voiding: no voiding problems 81-year-old male with history of lung cancer admitted with influenza A and pneumonia. He is currently waiting placement at [facility] for rehabilitation secondary to weakness and deconditioning. Today he notes being mildly more short of breath than previous. He denies cough. Constitutional: No chills, No fever Respiratory: + shortness of breath, No cough, No dyspnea at rest, No dyspnea on exertion, No sputum, No wheezing Cardiovascular: No chest pain, No orthopnea Abdomen: No pain Musculoskeletal: + swelling (left upper extremity), No joint pain Male : No dysuria, No incontinence, No urinary frequency All Other Systems: Reviewed and Negative Medications Medications Administered Medications (Trade) Dose Ordered Sig/Sheila Route Start Time Stop Time Status Last Admin Dose Admin Sodium Chloride (Nss 1000ml) 1,000 ml @ 125 mls/hr Q8H STAT IV 09/20/16 20:56 09/21/16 01:26 DC 09/20/16 20:56 125 MLS/HR Albuterol/ Ipratropium (Duoneb) 3 ml NOW STAT INH 09/20/16 20:56 09/20/16 20:59 DC 09/20/16 20:56 3 ML Zolpidem Tartrate (Ambien Tab) 5 mg HSZ PRN PO 09/20/16 23:00 10/20/16 22:59 09/25/16 22:10 5 MG Allopurinol (Zyloprim Tab) 100 mg QAM PO 09/21/16 09:00 10/21/16 08:59 09/26/16 07:57 100 MG Ascorbic Acid (Vitamin C Tab) 500 mg BID PO 09/21/16 09:00 10/21/16 08:59 09/26/16 07:57 500 MG Aspirin (Ecotrin Tab) 81 mg DAILY PO 09/21/16 09:00 10/21/16 08:59 09/26/16 07:57 81 MG Clopidogrel Bisulfate (plAVix TAB) 75 mg DAILY PO 09/21/16 09:00 10/21/16 08:59 09/26/16 07:57 75 MG Digoxin (Lanoxin Tab) 0.125 mg DAILY@1600 PO 09/21/16 16:00 10/21/16 15:59 09/25/16 16:58 0.125 MG Levothyroxine Sodium (Synthroid Tab) 50 mcg DAILYBB PO 09/21/16 06:00 10/21/16 05:59 09/26/16 06:25 50 MCG Metoprolol Tartrate (Lopressor Tab) 50 mg BID PO 09/21/16 09:00 10/21/16 08:59 09/26/16 07:57 50 MG Multivitamins (Multivitamin Tab) 1 tab QAM PO 09/21/16 09:00 10/21/16 08:59 09/26/16 07:57 1 TAB Oseltamivir Phosphate (Tamiflu Cap) 75 mg BID PO 09/21/16 09:00 09/26/16 08:59 DC 09/26/16 07:56 75 MG Ranitidine HCl (zANTac TAB) 150 mg BID PO 09/21/16 09:00 10/21/16 08:59 09/26/16 08:14 150 MG Docusate Sodium (coLACE CAP) 100 mg BID PO 09/21/16 09:00 10/21/16 08:59 09/26/16 07:57 100 MG Pantoprazole Sodium 40 mg 40 mg QAM PO 09/21/16 09:00 10/21/16 08:59 09/26/16 07:57 40 MG Methylprednisolone Sodium Succinate/ Syringe (Solu-Medrol IV/ Syringe) 0.64 ml @ 1.5 mls/min Q8H IV 09/21/16 01:30 09/23/16 11:43 DC 09/23/16 08:48 1.5 MLS/MIN Ondansetron HCl (Zofran Inj) 4 mg Q6H PRN IV 09/20/16 23:00 10/20/16 22:59 09/21/16 17:56 4 MG Guaifenesin 600 mg 600 mg BID PO 09/21/16 09:00 10/21/16 08:59 09/26/16 07:56 600 MG Vancomycin HCl/ Sodium Chloride (Vancomycin Inj/ Nss 500ml) 532 ml @ 200 mls/hr NOW STAT IV 09/20/16 23:32 09/21/16 02:11 DC 09/21/16 00:13 200 MLS/HR Ipratropium [place] (Atrovent 0.02% 0.5MG/2.5ML Neb) 0.5 mg Q6R INH 09/21/16 03:00 10/21/16 02:59 09/26/16 14:38 0.5 MG Levalbuterol (Xopenex 1.25MG/ 0.5ML Neb) 1.25 mg Q6R INH 09/21/16 03:00 10/21/16 02:59 09/26/16 14:38 1.25 MG Ipratropium [place] (Atrovent 0.02% 0.5MG/2.5ML Neb) 0.5 mg Q2H PRN INH 09/21/16 01:30 10/21/16 01:29 09/26/16 04:59 0.5 MG Levalbuterol 1.25 mg 1.25 mg Q2H PRN INH 09/21/16 01:45 10/21/16 01:44 09/26/16 04:59 1.25 MG Piperacillin Sod/ Tazobactam Sod 3.375 gm/Dextrose 115 ml @ 230 mls/hr TODAY@0200 ONCE IV 09/21/16 02:00 09/21/16 02:29 DC 09/21/16 02:30 230 MLS/HR Piperacillin Sod/ Tazobactam Sod 3.375 gm/Dextrose 115 ml @ 28.75 mls/ hr Q8H IV 09/21/16 06:00 09/22/16 09:29 DC 09/22/16 06:22 28.75 MLS/HR Vancomycin HCl/ Sodium Chloride (Vancomycin Inj/ Nss 250ml) 265 ml @ 125 mls/hr Q12H IV 09/21/16 12:00 09/22/16 09:29 DC 09/22/16 01:32 125 MLS/HR Ondansetron HCl (Zofran Inj) 4 mg NOW STAT IV 09/21/16 17:52 09/21/16 18:00 DC 09/21/16 18:02 4 MG Menthol 24 radha 24 radha STK-MED ONCE .ROUTE 09/22/16 00:34 09/22/16 00:35 DC 09/22/16 00:51 24 RADHA Potassium Chloride/Sodium Chloride 1,000 ml @ 100 mls/hr Q10H IV 09/22/16 10:00 09/23/16 09:17 DC 09/23/16 07:29 100 MLS/HR Al Hydroxide/Mg Hydroxide 18 ml/ Lidocaine HCl 6 ml/Barcode 1 ea TODAY@1000 PO 09/22/16 10:00 09/22/16 12:00 DC 09/22/16 10:00 24 ML Furosemide/Syringe (Lasix Inj/ Syringe) 2 ml @ 4 mls/min 1030 IV 09/23/16 10:30 09/23/16 10:31 DC 09/23/16 10:42 4 MLS/MIN Heparin Sodium (Porcine) (Heparin 100 Unit/ml 5ml Flush) 5 ml PRN PRN IV 09/23/16 10:15 10/23/16 10:14 09/25/16 11:23 5 ML Levofloxacin (Levaquin Tab) 750 mg DAILY@11 PO 09/24/16 11:00 09/29/16 11:01 09/26/16 10:51 750 MG Levofloxacin (Levaquin Tab) 750 mg 1113 ONCE PO 09/23/16 11:13 09/23/16 11:53 DC 09/23/16 12:26 750 MG Prednisone (PredniSONE TAB) 40 mg DAILY PO 09/24/16 08:00 09/28/16 07:59 09/26/16 07:56 40 MG Prednisone (PredniSONE TAB) 40 mg 1141 ONCE PO 09/23/16 11:41 09/23/16 11:53 DC 09/23/16 12:27 40 MG Spironolactone (Aldactone Tab) 25 mg QAM PO 09/25/16 08:00 10/25/16 07:59 09/26/16 07:57 25 MG Spironolactone (Aldactone Tab) 25 mg 1102 ONCE PO 09/24/16 11:02 09/24/16 11:33 DC 09/24/16 12:00 25 MG Furosemide (Lasix Oral Soln) 20 mg QAM PO 09/26/16 08:00 10/26/16 07:59 09/26/16 07:58 20 MG Furosemide (Lasix Oral Soln) 20 mg 1000 ONCE PO 09/25/16 10:00 09/25/16 10:01 DC 09/25/16 11:08 20 MG Tiotropium [place] (Spiriva Handihaler Inhaler) 1 puff DAILY INH 09/26/16 08:00 10/26/16 07:59 09/26/16 07:59 1 PUFF Objective Vital Signs Date Time Temp Pulse Resp B/P Pulse Ox O2 Delivery O2 Flow Rate FiO2 09/26/16 15:47 36.7 61 15 150/64 95 Room Air 09/26/16 15:40 36.7 87 20 124/74 96 Room Air 09/26/16 14:38 87 18 94 Room Air 09/26/16 08:00 Nasal Cannula 09/26/16 07:50 36.7 98 18 145/72 92 09/26/16 07:37 84 18 94 Room Air 09/26/16 04:59 91 18 93 Room Air 09/26/16 04:06 36.3 72 18 128/72 96 Room Air 09/26/16 02:24 85 18 93 Room Air 09/26/16 00:00 93 Room Air 09/25/16 23:36 36.6 64 18 133/80 97 Room Air 09/25/16 19:42 102 18 92 Room Air 09/25/16 19:32 36.6 93 20 120/69 93 Room Air 09/25/16 16:58 96 09/25/16 16:00 Room Air Physical Exam General Appearance: WD/WN, no apparent distress Eyes: normal inspection, PERRL ENT: normal ENT inspection, hearing grossly normal Neck: supple, no adenopathy Respiratory/Chest: chest non-tender, no respiratory distress, no accessory muscle use, + pertinent finding (decrease in the bases bilaterally. Lung sounds actually sound improved when compared to prior examinations. There are no wheezing rhonchi or rales noted.) Cardiovascular: regular rate, rhythm, + pertinent finding (left upper extremity edema seems less when compared to yesterday. His left radial pulse is appreciated. His capillary refill is less than 2 seconds. His tour operator strength is strong. He has trace edema of the lower extremity is bilaterally at the sock lines.) Abdomen: normal bowel sounds, non tender, soft Extremities: normal range of motion, non-tender Neurologic/Psychiatric: no motor/sensory deficits, alert, normal mood/affect, oriented x 3 Skin: normal color, warm/dry, no rash Assessment and Plan 7-year-old male with influenza type A, pneumonia, with history of lung cancer. Influenza with strep or staph pneumonia Continue PO Levaquin, complete 7 day course (ends 09/26) Report some increased work of breathing although his lung sounds are clear. I' m not sure this represents worsening of his infectious process but rather a variable baseline secondary to his progressive lung cancer. We'll check chest x-ray today. Heartburn, resolved. Continue home dose of PPI / Zantac Left upper extremity edema US negative AGNES compression hose Influenza Contact / droplet precautions Tamiflu CK elevation, improving and Transaminitis Hold statin for now His transaminitis may be related to his hepatic contusion on his prior hospitalization. Alternatively it could represent metastatic disease. We'll trend. Systolic CHF / CAD Continue aspirin, plavix, digoxin, lopressor BID Lasix 20mg and spironolactone 25mg daily Proximal leg weakness PT/ OT - Referral to [facility] Lumbar Spine XRay: Negative COPD Continue prednisone 40 mg daily. CODE STATUS: FULL CODE VTE SCDs Lovenox
--- NOTE | 2016-09-26 16:48 | DIAGNOSTIC IMAGING REPORT ---
CHEST 2 VIEWS ROUTINE HISTORY: Pneumonia. Lung cancer. Short of breath. COMPARISON: Chest 09/22/2016. FINDINGS: Left-sided pacemaker/defibrillator. Poststernotomy changes. Right subclavian Port-A-Cath terminates in the distal SVC. There is stable volume loss within the left hemithorax. The heart is stable in size. Patchy densities within the left midlung zone and left pleural thickening is stable. There are also patchy densities at the base of the right lower lobe which are not significantly changed. No pneumothorax. Trace left pleural effusion persists. 1 cm right suprahilar nodule is again noted. Right hilar prominence is also stable. IMPRESSION: 1. No significant change compared the prior study. 2. Right lung base airspace opacities persist. 3. Stable 1 cm right suprahilar nodule. 4. Stable volume loss within the left hemithorax and a trace left pleural effusion. Electronically signed by: Kevin Phelps M.D. 09/26/2016 4:46 PM Dictated Date/Time: 09/26/2016 4:43 PM
[2016-09-26] MEDS: DIGOXIN 0.125 MG TAB PO SCH (16:56)
[2016-09-26] MEDS: HEPARIN SOD 5000 UNIT/0.5 ML CARP SQ SCH (21:15)
[2016-09-27] VITALS (11 sets, daily range): BP systolic 116–153; BP diastolic 66–79; PULSE 60–90; TEMP 36.2–36.8; O2SAT 93–95
[2016-09-27] MEDS: LEVALBUTEROL 1.25MG/0.5ML NEB INH SCH ×4 (02:35→20:45)
[2016-09-27] MEDS: IPRATROPIUM BROMIDE NEB SOLN 0.02% 2.5 ML VIAL INH SCH ×4 (02:35→20:45)
[2016-09-27] MEDS: IPRATROPIUM BROMIDE NEB SOLN 0.02% 2.5 ML VIAL INH PRN (04:18)
[2016-09-27] MEDS: LEVALBUTEROL 1.25MG/0.5ML NEB INH PRN (04:18)
[2016-09-27] MEDS: LEVOTHYROXINE 50 MCG TAB PO SCH (05:54)
[2016-09-27 06:57] LABS: BASO % 0.1 %; BASO ABS # 0.01 K/uL (0-0.2); COMPLETE YES; EOS % 0.4 %; IG% 1.8 %; LYMPH % 5.1 %; LYMPH ABS # 0.57 K/uL (1.2-3.4); MEAN CELL VOLUME 90.7 fL (80-100); MEAN CORPUSCULAR HEMOGLOBIN 30.6 pg (25-34); MEAN CORPUSCULAR HGB CONC 33.7 g/dl (32-36); MEAN PLATELET VOLUME 9.1 fL (7.4-10.4); MONO % 5.7 %; NEUT % 86.9 %; PLATELET COUNT 209 K/uL (130-400); RED BLOOD COUNT 3.86 M/uL (4.7-6.1); WHITE BLOOD COUNT 11.09 K/uL (4.8-10.8)
[2016-09-27 07:18] LABS: BUN/CREATININE RATIO 32.3 (10-20); CALCIUM 7.9 mg/dl (8.5-10.1); CREATININE 0.58 mg/dl (0.60-1.40); POTASSIUM 3.7 mmol/L (3.5-5.1)
[2016-09-27 07:20] LABS: ALB/GLOB RATIO 0.8 (0.9-2)
[2016-09-27] MEDS: ALLOPURINOL 100 MG TAB PO SCH (08:04)
[2016-09-27] MEDS: ASCORBIC ACID 500 MG TAB PO SCH ×2 (08:04→20:35)
[2016-09-27] MEDS: ASPIRIN 81 MG ECTAB PO SCH (08:04)
[2016-09-27] MEDS: SPIRONOLACTONE 25 MG TAB PO SCH (08:04)
[2016-09-27] MEDS: CLOPIDOGREL BISULFATE 75 MG TAB PO SCH (08:04)
[2016-09-27] MEDS: GUAIFENESIN 600 MG TABCR PO SCH ×2 (08:04→20:35)
[2016-09-27] MEDS: METOPROLOL TARTRATE 50 MG TAB PO SCH ×2 (08:04→20:35)
[2016-09-27] MEDS: RANITIDINE HCL 150 MG TAB PO SCH ×2 (08:04→20:35)
[2016-09-27] MEDS: MULTIVITAMIN TAB PO SCH (08:04)
[2016-09-27] MEDS: TIOTROPIUM BROMIDE 5 PUFF/90 MCG INH INH SCH (08:05)
[2016-09-27] MEDS: PANTOprazole SOD 40 MG TAB PO SCH (08:05)
[2016-09-27] MEDS: FUROSEMIDE 10 MG/ML 60ML BOTTLE PO SCH (08:05)
[2016-09-27] MEDS: DOCUSATE SODIUM 100 MG CAP PO SCH ×2 (08:05→20:38)
[2016-09-27] MEDS: HEPARIN SOD 5000 UNIT/0.5 ML CARP SQ SCH ×2 (08:09→20:39)
[2016-09-27] MEDS: LEVOFLOXACIN 750 MG TAB PO SCH (11:12)
--- NOTE | 2016-09-27 11:39 | Hospitalist Progress Note ---
Hospitalist Progress Note Date of Service Sep 27, 2016. Subjective Pt evaluation today including: conversation w/ patient, conversation w/ family , physical exam, chart review, lab review, review of studies, review of inpatient medication list Pain: denies PO Intake: good Voiding: no voiding problems 81-year-old male with underlying lung malignancy admitted with influenza type A and secondary pneumonia, improving and now awaiting placement for inpatient rehabilitation secondary to deconditioning and generalized weakness. He had a prior recent hospitalization for a fall with liver contusion; his LFTs continued to trend down. He is feeling well this morning. The patient states his breathing is better when compared to yesterday. He feels his strength is improving although his activity has been limited to bed to bathroom. The swelling in his left upper extremity continues to decrease; he denies pain of his left upper extremity. During my visit his son is at bedside and all questions are addressed. Constitutional: No chills, No fever Respiratory: + cough, No dyspnea on exertion, No shortness of breath, No sputum, No wheezing Cardiovascular: No chest pain Abdomen: No nausea, No pain Male : No dysuria Neurologic: No memory loss Endo: No fatigue Objective Vital Signs Date Time Temp Pulse Resp B/P Pulse Ox O2 Delivery O2 Flow Rate FiO2 09/27/16 08:01 36.6 89 16 153/68 95 Room Air 09/27/16 08:00 Nasal Cannula 09/27/16 07:12 85 16 95 Room Air 09/27/16 04:19 88 16 94 Room Air 09/27/16 04:16 36.5 85 20 133/70 95 Room Air 09/27/16 00:00 Room Air 09/26/16 23:49 84 18 93 Room Air 09/26/16 23:14 36.8 88 16 122/70 100 Room Air 09/26/16 21:27 97 Room Air 09/26/16 19:51 102 115/61 09/26/16 19:44 36.6 103 20 122/72 97 Room Air 09/26/16 19:35 88 18 93 Room Air 09/26/16 16:56 68 09/26/16 16:16 68 176/90 09/26/16 16:15 95 Room Air 09/26/16 15:40 36.7 87 20 124/74 96 Room Air 09/26/16 14:38 87 18 94 Room Air Physical Exam General Appearance: WD/WN, no apparent distress Eyes: normal inspection, PERRL ENT: normal ENT inspection, hearing grossly normal Neck: supple, trachea midline Respiratory/Chest: chest non-tender, lungs clear (lungs are decreased in the bases, left base greater than right base. Otherwise his lungs are clear. There is good air movement. There is no wheezing rhonchi or rales appreciated. Overall, his lung sounds in his right marked improvement compared to 2-3 days ago, very similar to the exam yesterday.) Cardiovascular: regular rate, rhythm, no edema (trace edema to the lower extremity is bilaterally. Edema of the left upper extremity is improving compared to yesterday.) Abdomen: normal bowel sounds, non tender, soft Extremities: non-tender, normal inspection, no pedal edema Neurologic/Psychiatric: no motor/sensory deficits, alert, normal mood/affect, oriented x 3 Laboratory Results Last 24 Hours Test 09/27/16 05:45 White Blood Count 11.09 K/uL Red Blood Count 3.86 M/uL Hemoglobin 11.8 g/dL Hematocrit 35.0 % Mean Corpuscular Volume 90.7 fL Mean Corpuscular Hemoglobin 30.6 pg Mean Corpuscular Hemoglobin Concent 33.7 g/dl Platelet Count 209 K/uL Mean Platelet Volume 9.1 fL Neutrophils (%) (Auto) 86.9 % Lymphocytes (%) (Auto) 5.1 % Monocytes (%) (Auto) 5.7 % Eosinophils (%) (Auto) 0.4 % Basophils (%) (Auto) 0.1 % Neutrophils # (Auto) 9.64 K/uL Lymphocytes # (Auto) 0.57 K/uL Monocytes # (Auto) 0.63 K/uL Eosinophils # (Auto) 0.04 K/uL Basophils # (Auto) 0.01 K/uL RDW Standard Deviation 63.6 fL RDW Coefficient of Variation 19.1 % Immature Granulocyte % (Auto) 1.8 % Immature Granulocyte # (Auto) 0.20 K/uL Sodium Level 144 mmol/L Potassium Level 3.7 mmol/L Chloride Level 105 mmol/L Carbon Dioxide Level 31 mmol/L Anion Gap 8.0 mmol/L Blood Urea Nitrogen 19 mg/dl Creatinine 0.58 mg/dl Est Creatinine Clear Calc Drug Dose 85.4 ml/min Estimated GFR () 110.0 Estimated GFR (Non- 94.9 BUN/Creatinine Ratio 32.3 Random Glucose 84 mg/dl Calcium Level 7.9 mg/dl Total Bilirubin 0.6 mg/dl Aspartate Amino Transf (AST/SGOT) 81 U/L Alanine Aminotransferase (ALT/SGPT) 219 U/L Alkaline Phosphatase 115 U/L Total Protein 4.7 gm/dl Albumin 2.1 gm/dl Globulin 2.6 gm/dl Albumin/Globulin Ratio 0.8 Assessment and Plan 81-year-old male with influenza type A, pneumonia, with history of lung cancer. Influenza with strep or staph pneumonia Continue PO Levaquin, complete 7 day course (ends 09/26) He states his breathing is well today. Overall, his lung exam is markedly improved compared to his admission. Heartburn, resolved. Continue home dose of PPI / Zantac Left upper extremity edema US negative Likely secondary to infiltrated IV line which was placed proximal to the elbow. His edema is improved compared to yesterday. Influenza Contact / droplet precautions Tamiflu CK elevation, improving and Transaminitis Hold statin for now His transaminitis may be related to his hepatic contusion on his prior hospitalization. Alternatively it could represent metastatic disease. His LFTs are improving. Systolic CHF / CAD Continue aspirin, plavix, digoxin, lopressor BID Lasix 20mg and spironolactone 25mg daily Proximal leg weakness He is currently waiting placement at [facility]. COPD Continue prednisone 40 mg today. Decrease to prednisone 20 mg starting tomorrow. VTE SCDs Lovenox CODE STATUS: FULL CODE
[2016-09-27] MEDS: DIGOXIN 0.125 MG TAB PO SCH (15:52)
[2016-09-28] VITALS (12 sets, daily range): BP systolic 123–146; BP diastolic 71–79; PULSE 55–96; TEMP 36.3–36.9; O2SAT 91–98
[2016-09-28] MEDS: LEVALBUTEROL 1.25MG/0.5ML NEB INH PRN (00:21)
[2016-09-28] MEDS: IPRATROPIUM BROMIDE NEB SOLN 0.02% 2.5 ML VIAL INH PRN (00:21)
[2016-09-28] MEDS: LEVALBUTEROL 1.25MG/0.5ML NEB INH SCH ×3 (02:00→14:05)
[2016-09-28] MEDS: IPRATROPIUM BROMIDE NEB SOLN 0.02% 2.5 ML VIAL INH SCH ×3 (02:00→14:05)
[2016-09-28] MEDS: LEVOTHYROXINE 50 MCG TAB PO SCH (05:15)
[2016-09-28] MEDS: RANITIDINE HCL 150 MG TAB PO SCH (09:05)
[2016-09-28] MEDS: DOCUSATE SODIUM 100 MG CAP PO SCH (09:05)
[2016-09-28] MEDS: FUROSEMIDE 10 MG/ML 60ML BOTTLE PO SCH (09:06)
[2016-09-28] MEDS: PANTOprazole SOD 40 MG TAB PO SCH (09:06)
[2016-09-28] MEDS: TIOTROPIUM BROMIDE 5 PUFF/90 MCG INH INH SCH (09:06)
[2016-09-28] MEDS: ALLOPURINOL 100 MG TAB PO SCH (09:07)
[2016-09-28] MEDS: ASCORBIC ACID 500 MG TAB PO SCH (09:07)
[2016-09-28] MEDS: SPIRONOLACTONE 25 MG TAB PO SCH (09:07)
[2016-09-28] MEDS: GUAIFENESIN 600 MG TABCR PO SCH (09:07)
[2016-09-28] MEDS: CLOPIDOGREL BISULFATE 75 MG TAB PO SCH (09:07)
[2016-09-28] MEDS: ASPIRIN 81 MG ECTAB PO SCH (09:07)
[2016-09-28] MEDS: MULTIVITAMIN TAB PO SCH (09:08)
[2016-09-28] MEDS: HEPARIN SOD 5000 UNIT/0.5 ML CARP SQ SCH (09:08)
[2016-09-28] MEDS: METOPROLOL TARTRATE 50 MG TAB PO SCH (10:59)
[2016-09-28] MEDS: LEVOFLOXACIN 750 MG TAB PO SCH (10:59)
[2016-09-28] MEDS: TRIMETHOPRIM/POLYMYXIN B OP SCH ×2 (12:52→16:00)
[2016-09-28] MEDS ORDERED: ALUMINUM/MAGNESIUM/SIMETH (MAALOX MAX) 30 ML UDC PO PRN (13:00)
[2016-09-28] MEDS ORDERED: PRED10TA PO (14:22)
[2016-09-28] MEDS ORDERED: POLYSOL21 OP (15:23)
[2016-09-28] MEDS: DIGOXIN 0.125 MG TAB PO SCH (16:58)
--- NOTE | 2016-09-28 18:51 | Discharge Summary ---
Discharge Summary Admission Date: Sep 20, 2016 at 23:47 Discharge Date: Sep 25, 2016 Discharge Disposition: Rehab Principal Diagnosis: Weakness, Influenza, PNA, Problems/Secondary Diagnoses: Non-small cell lung Ca, stage III b Immunizations: Have You Had Influenza Vaccine: No Influenza Vaccine Date: Jul 10, 2011 History of Tetanus Vaccine?: Unknown History of Pneumococcal: Unknown Pneumococcal Date: Mar 10, 2007 History of Hepatitis B Vaccine: Unknown (Arthur Adan MD) Medication Reconciliation New Medications: Prednisone (Prednisone) 10 Mg Tab 10 MG PO DAILY for 5 Days, #11 TAB Please take as follows: 2 tablets (20 mg) daily x 2 days, then 1 tablet (10 mg) daily x 1 day , then STOP Polymyxin B-Trimethoprim (Trimethoprim Sulfate/Poly 89241-6.1 Unit/ml-%) 1 Minerva Minerva 1 DROPS OP Q4 for 7 Days, #1 BTL Continued Medications: Allopurinol (Zyloprim) 100 Mg Tab 100 MG PO QAM Ascorbic Acid (Vitamin C) 500 Mg Tab 500 MG PO BID Aspirin (Aspirin Ec) 81 Mg Tab 81 MG PO DAILY Atorvastatin Calcium (Lipitor) 80 Mg Tab 80 MG PO HS Budesonide/Formoterol Fumarate (Symbicort 160-4.5 Mcg/Act) 60 Puffs/Inhaler Aero 2 PUFFS INH BID Clopidogrel (Plavix) 75 Mg Tab 75 MG PO DAILY, TAB Digoxin (Lanoxin) 0.125 Mg Tab 0.125 MG PO QAM, 0 Refills Docusate Sodium (Stool Softener) 100 Mg Tab 100 MG PO BID PRN for Constipation Furosemide (Lasix) 20 Mg Tab 20 MG PO DAILY, #90 TAB Levothyroxine Sodium (Synthroid) 50 Mcg Tab 50 MCG PO QAM Metoprolol Tartrate (Lopressor) (Lopressor) 50 Mg Tab 50 MG PO BID, TAB Misc. Devices (Roller Walker) 1 Mis Mis UNIT, #1 Multivitamin (Multivitamin) Tab 1 TAB PO QAM, 0 Refills Nitroglycerin (Nitrostat) 0.4 Mg Tab 0.4 MG UT PRN PRN for CHEST PAIN, BTL Omeprazole (Prilosec) 40 Mg Capcr 40 MG PO QPM, CAP Ranitidine (Zantac) 150 Mg Tab 150 MG PO QAM, TAB Spironolactone (Aldactone) 25 Mg Tab 25 MG PO QAM, 0 Refills TAKE 1/2 HOUR BEFORE LASIX Tiotropium [place] Monohydrate (Spiriva Respimat) 2.5 Mcg/Act Spr 2 PUFFS INH DAILY Discontinued Medications: Prednisone (Prednisone Tab) 20 Mg Tab 20 MG PO DAILY, TAB Discharge Exam Review of systems was negative unless stated in the hospital course Physical Exam: General Appearance: WD/WN, no apparent distress Eyes: normal inspection, EOMI, + abnormal sclerae exam (erythema with periorbital erythma; normal EOMI; watery discharge), + pertinent finding ENT: hearing grossly normal, pharynx normal Neck: supple, no adenopathy, no JVD Respiratory/Chest: lungs clear, no respiratory distress Cardiovascular: regular rate, rhythm, no gallop, no murmur Abdomen / GI: normal bowel sounds, non tender, soft Extremities: no calf tenderness, no pedal edema Neurologic/Psychiatric: alert, normal mood/affect, oriented x 3 Skin: normal color, warm/dry, no rash Lymphatic: no adenopathy (Arthur Adan MD) Review of Systems: Constitutional: No fever Respiratory: No shortness of breath Cardiovascular: No chest pain Abdomen: No pain Physical Exam: General Appearance: no apparent distress Eyes: + pertinent finding (left eye conjunctival injection) Respiratory/Chest: lungs clear, no respiratory distress Cardiovascular: regular rate, rhythm Neurologic/Psychiatric: alert, oriented x 3 (Erin Guerrero M.D.) Hospital Course Patient is a pleasant 81 year old gentleman with a history of non-small cell lung Ca. Patient was admitted on 09/15/16 with a fall resulting a in a hepatic contusion. Following discharge, he was re-admitted shortly thereafter on 09/21 for worsening shortness of breath and weakness. He is influenza A positive. He had right airspace opacification suggestive of a possible superimposing PNA. He was treated with 5 days of Tamiflu. He completed a 7 day course of Levaquin He was started on a PO prednisone taper. he has been discharged requiring 20 mg for 2 days, then 10 mg for days On the day of discharge, he did note redness of his left eye. His eye was assessed and he deemed probably conjunctivitis. He was started Poly-Trim Eye drops. He was discharged in stable condition. Total Time Spent: Less than 30 minutes This includes examination of the patient, discharge planning, medication reconciliation, and communication with other providers. (Arthur Adan MD) I have reviewed the medical record and performed a history and physical examination of this patient today. I have discussed the case with Dr. Adan. The above note reflects my findings, conclusions, and recommendations. Total Time Spent: Greater than 30 minutes (35 min) (Erin Guerrero M.D.) Discharge Instructions Please refer to the electronic Patient Visit Report (Discharge Instructions) for additional information. (Arthur Adan MD)
[2016-11-03] MEDS ORDERED: VALA1TAB31 PO (06:22)
== END 2016-09-28 17:54 | DRG 178 ==
LOC: ENRESERVTM → ENRESERVDT → CANRESERV → C.EDB 19:39 → C.2T 23:47 → UNDOADMIN 23:47 → C.4E 09-22 19:36
PROVIDERS: ADMIT Hospitalist; ATTEND Family Medicine
DX: J11.08 Influenza due to unidentified influenza virus with specified pneumonia (principal); J15.20 Pneumonia due to staphylococcus, unspecified; I50.22 Chronic systolic (congestive) heart failure; J44.0 Chronic obstructive pulmonary disease with (acute) lower respiratory infection; C34.90 Malignant neoplasm of unspecified part of unspecified bronchus or lung; J13 Pneumonia due to Streptococcus pneumoniae; R53.1 Weakness; H10.9 Unspecified conjunctivitis; R78.89 Finding of other specified substances, not normally found in blood; R29.898 Other symptoms and signs involving the musculoskeletal system; R60.0 Localized edema; I25.10 Atherosclerotic heart disease of native coronary artery without angina pectoris; M10.9 Gout, unspecified; E78.5 Hyperlipidemia, unspecified; E03.9 Hypothyroidism, unspecified; K21.9 Gastro-esophageal reflux disease without esophagitis; F17.200 Nicotine dependence, unspecified, uncomplicated; Z79.899 Other long term (current) drug therapy; Z79.82 Long term (current) use of aspirin; Z79.02 Long term (current) use of antithrombotics/antiplatelets; Z91.81 History of falling; Z95.1 Presence of aortocoronary bypass graft; Z95.810 Presence of automatic (implantable) cardiac defibrillator; Z82.49 Family history of ischemic heart disease and other diseases of the circulatory system; Z80.9 Family history of malignant neoplasm, unspecified; Z86.79 Personal history of other diseases of the circulatory system; Z83.6 Family history of other diseases of the respiratory system; Z87.891 Personal history of nicotine dependence; Z88.8 Allergy status to other drugs, medicaments and biological substances; I51.7 Cardiomegaly

== ENCOUNTER → 2016-10-21 | Outpatient (CLI) | payer OTHER ==
[~2016-10-21] MED LIST changes: +AMXUD2505 PO; +BACI500O11 TOP; +DXM/4 PO; +IPRASOL4 INH; -LEVO-366 PO; +LNX125 PO; +LSX40 PO; +MELATAB2 PO; -NF406 PO; +OMEP20CA9 PO; +OMEP40CA41 PO; +OXYC10SO PO; +PRED20TA PO; -PRED20TA2 PO; +RMR15 PO; +SALI1SPR3; +VALA1TAB31 PO; +[UNRECOGNIZED DRUG - CODE] PO
== END | disposition home or self-care (01) ==
LOC: C.LABBFT 15:49
PROVIDERS: ATTEND Internal Medicine
DX: C34.90 Malignant neoplasm of unspecified part of unspecified bronchus or lung (principal); I25.10 Atherosclerotic heart disease of native coronary artery without angina pectoris; Z51.81 Encounter for therapeutic drug level monitoring; Z79.899 Other long term (current) drug therapy

== ENCOUNTER 2016-11-10 05:23 | Inpatient (IN) | payer OTHER ==
[~2016-11-10] VITALS: Ht 160 cm; Wt 59.3 kg
[2016-11-10] VITALS (7 sets, daily range): BP systolic 128–159; BP diastolic 56–92; PULSE 68–84; TEMP 36.3–36.6; O2SAT 92–97; Ht 160 cm; Wt 59.3 kg
[~2016-11-10 05:23] MED LIST changes: -AMXUD2505 PO; -BACI500O11 TOP; -DXM/4 PO; -IPRASOL4 INH; -LNX125 PO; -LSX40 PO; -MELATAB2 PO; -OMEP20CA9 PO; -OMEP40CA41 PO; -OXYC10SO PO; -PRED20TA PO; -RMR15 PO; -SALI1SPR3; -[UNRECOGNIZED DRUG - CODE] PO
--- NOTE | 2016-11-10 06:07 | EMERGENCY ROOM VISIT NOTE ---
History Report prepared by Monse: Kamila Crow Under the Supervision of: Dr. Carmen Sheets D.O. First contact with patient: 05:42 Chief Complaint: RESPIRATORY PROBLEMS Stated Complaint: BREATHING PROBLEM Nursing Triage Summary: Pt reports SOB that started around 3am. Pt has hx of lung cancer for 2 years. Last treatment was in July. History of Present Illness The patient is an 81 year old male who presents to the Emergency Room with complaints of persistent shortness of breath that began at 0300 this morning. The patient states that he was asleep this morning and states that he woke up feeling short of breath. He states that prior to going to bed last evening he felt fine, but his son notes that over the last several days, the patient's breathing has been increasingly labored. The patient's son states that the patient is still moving around. The patient states that he wears supplemental nasal cannula oxygen at night time, and states that he cannot tell if the oxygen is alleviating his symptoms currently. The patient notes a cough today. Per the patient's son, the patient was recently evaluated in the hospital, noting that the patient had an eye infection and a tear in his cornea. The patient's son notes that the patient was placed on Valacyclovir and notes that the patient has not been sleeping well since being started on the medication. The patient denies any pain. He notes chronic edema to his right lower extremity due to a vascular surgery. Source of History: patient, family (son) Onset: 0300 this morning Position: other (global) Quality: other (shorntess of breath) Timing: other (persistent) Associated Symptoms: + cough Review of Systems See HPI for pertinent positives & negatives. A total of 10 systems reviewed and were otherwise negative. Past Medical & Surgical Medical Problems: (1) Dehydration, moderate (2) Elevated troponin I level (3) Feeling exhausted (4) Gouty arthropathy (5) Influenza A (6) Liver contusion (7) Lung cancer (8) Neutropenia (9) Post-op pain (10) Systolic heart failure Surgical Problems: (1) S/P CABG (coronary artery bypass graft) Family History Cancer FHx: cancer Heart disease Hypertension Lung disease Social History Smoking Status: Former Smoker Alcohol Use: none Drug Use: none Marital Status: Housing Status: lives alone Occupation Status: retired Current/Historical Medications Scheduled Allopurinol (Zyloprim), 100 MG PO QAM Ascorbic Acid (Vitamin C), 500 MG PO BID Aspirin (Aspirin Ec), 81 MG PO DAILY Atorvastatin Calcium (Lipitor), 80 MG PO HS Budesonide/Formoterol Fumarate (Symbicort 160-4.5 Mcg/Act), 2 PUFFS INH BID Clopidogrel (Plavix), 75 MG PO DAILY Digoxin (Digoxin), 0.125 MG PO QAM Furosemide (Lasix), 20 MG PO DAILY Levothyroxine Sodium (Synthroid), 50 MCG PO QAM Metoprolol Tartrate (Lopressor) (Lopressor), 25 MG PO BID Multivitamin (Multivitamin), 1 TAB PO QAM Omeprazole (Prilosec), 40 MG PO HS Prednisone (Prednisone), 1 TAB PO DAILY Ranitidine (Zantac), 150 MG PO QAM Spironolactone (Aldactone), 25 MG PO QAM Tiotropium [place] Monohydrate (Spiriva Respimat), 2 PUFFS INH DAILY Valacyclovir Hcl (Valtrex), 1 GM PO BID Scheduled PRN Docusate Sodium (Stool Softener), 100 MG PO BID PRN for Constipation Ipratropium-Albuterol (Duoneb), 1 TREATMENT INH Q6 PRN for SOB/Wheezing Melatonin (Melatonin Maximum Strengt), 1 TAB PO HS PRN for Sleep Nitroglycerin (Nitrostat), 0.4 MG UT PRN PRN for CHEST PAIN Allergies Coded Allergies: Lisinopril (Verified Allergy, Unknown, Unknown, 11/10/16) Physical Exam Vital Signs Date Time Temp Pulse Resp B/P Pulse Ox O2 Delivery O2 Flow Rate FiO2 11/10/16 08:22 72 18 118/75 94 Nasal Cannula 3.0 11/10/16 06:55 70 20 120/73 98 Nasal Cannula 3.0 11/10/16 05:44 72 11/10/16 05:37 93 Nasal Cannula 4.0 11/10/16 05:30 34.6 85 17 119/60 88 Room Air Physical Exam General: Appears cachectic and short of breath. HEENT: Head - normocephalic and atraumatic Pupils are equal, round, and reactive to light. Extraocular eye muscles are intact, and sclera are anicteric. Nose - moist nasal mucosa without discharge. Mouth - moist buccal mucosa. Oropharynx is nonerythematous with some thrush Neck: Supple; no JVD, nuchal rigidity, cervical lymphadenopathy. Heart: Regular rate and rhythm. There is a normal S1 and S2 with no murmurs, clicks, or gallops appreciated. Lungs: Breath sounds are diminished in all lung mendoza. with no wheezes, rales , or rhonchi. Abdomen: Soft, completely nontender, nondistended, with good bowel sounds. There are no palpable pulsatile masses or hepatosplenomegaly. There is no guarding, rigidity, or rebound noted. Extremities: Bilateral lower extremity edema with the right greater than left. No evidence of cyanosis or clubbing. There are easily palpable peripheral pulses. Skin: warm and dry with good turgor and no rashes. Medical Decision & Procedures ER Provider Diagnostic Interpretation: X-ray results as stated below per interpretation by me and the radiologist: CHEST 2 VIEWS ROUTINE CLINICAL HISTORY: Lung cancer, shortness of breath. COMPARISON STUDY: 09/26/2016 FINDINGS: There are postsurgical changes of a midline sternotomy. There is a left subclavian pacer/defibrillator present. There is a right subclavian A-Port catheter. There is right hilar enlargement suspicious for mass/adenopathy. There is diffuse an essential thickening. More focal airspace opacities are obscured by the patient's pacemaker generator. There are bilateral pleural effusions right greater than left. An element of congestive failure is suspected.[ IMPRESSION: 1. Suspected congestive failure/fluid overload with elevation interstitium and bilateral pleural effusions right greater than left 2. Right hilar enlargement. An underlying mass/adenopathy must be considered 3. More focal airspace opacities are present within the left midlung zone and right lung base. Electronically signed by: Milton Pond M.D. 11/10/2016 6:41 AM Dictated Date/Time: 11/10/2016 6:39 AM Laboratory Results Test 11/10/16 06:05 Immature Granulocyte % (Auto) 0.5 % White Blood Count 14.67 K/uL (4.8-10.8) Red Blood Count 3.98 M/uL (4.7-6.1) Hemoglobin 12.1 g/dL (14.0-18.0) Hematocrit 36.8 % (42-52) Mean Corpuscular Volume 92.5 fL (80-100) Mean Corpuscular Hemoglobin 30.4 pg (25-34) Mean Corpuscular Hemoglobin Concent 32.9 g/dl (32-36) Platelet Count 235 K/uL (130-400) Mean Platelet Volume 9.3 fL (7.4-10.4) Neutrophils (%) (Auto) 89.1 % Lymphocytes (%) (Auto) 5.9 % Monocytes (%) (Auto) 4.1 % Eosinophils (%) (Auto) 0.3 % Basophils (%) (Auto) 0.1 % Neutrophils # (Auto) 13.07 K/uL (1.4-6.5) Lymphocytes # (Auto) 0.86 K/uL (1.2-3.4) Monocytes # (Auto) 0.60 K/uL (0.11-0.59) Eosinophils # (Auto) 0.05 K/uL (0-0.5) Basophils # (Auto) 0.01 K/uL (0-0.2) Immature Granulocyte # (Auto) 0.08 K/uL (0.00-0.02) Total Bilirubin 0.5 mg/dl (0.2-1) Aspartate Amino Transf (AST/SGOT) 50 U/L (15-37) Alanine Aminotransferase (ALT/SGPT) 110 U/L (12-78) Alkaline Phosphatase 111 U/L (45-117) Total Creatine Kinase 45 U/L (39-308) Creatine Kinase MB 3.3 ng/ml (0.5-3.6) Creatine Kinase MB Ratio 7.3 (0-3.0) Troponin I 0.028 ng/ml (0-0.045) Pro-B-Type Natriuretic Peptide 3475 pg/ml (0-1800) Total Protein 5.7 gm/dl (6.4-8.2) Albumin 2.5 gm/dl (3.4-5.0) Globulin 3.2 gm/dl (2.5-4.0) Albumin/Globulin Ratio 0.8 (0.9-2) Digoxin Level 1.6 ng/ml (0.8-2.0) Laboratory results per my review. Medications Administered Medications (Trade) Dose Ordered Sig/Sheila Route Start Time Stop Time Status Last Admin Dose Admin Furosemide (Lasix Inj) 40 mg STK-MED ONCE .ROUTE 2/21/17 07:10 11/10/16 07:12 DC 11/10/16 07:15 20 MG Procedure The patient was treated with Furosemide 20 mg IV. ECG Indication: SOB/dyspnea Rate (beats per minute): 67 Rhythm: other (ventricular paced) Findings: no acute ischemic change, paced rhythm Comparison ECG Date: 09/22/16 Change: no significant change ED Course 0545: Past medical records reviewed. The patient was evaluated in room A11B. A complete history and physical exam was performed. A twelve-lead EKG was obtained. An IV lock was initiated and labs were drawn as above. Patient had a chest x-ray as described above. 0702: I reevaluated the patient and he is resting. I discussed the exam findings with the patient and his son and I discussed the treatment plan. They verbalized complete understanding and agreement. The patient is going to be evaluated for further treatment. 0706: Ordered Furosemide 20 mg/Syringe 2 ml @ 4 mls/min IV. 0714: I discussed the patient's case with DENG Sorto. He is going to evaluate the patient for further treatment. Medical Decision The patient is an 81 year old female who presents to the ED with shortness of breath. Differential diagnosis includes pneumonia, congestive heart failure, cardiac ischemia Labs: White count 14.6, hemoglobin 12.1, BUN 28, creatinine 0.6, glucose 106, troponin 0.028, BNP 3475 This patient has a history of lung cancer and presents with worsening shortness of breath. He recently been treated for pneumonia with associated influenza. He recovered from this but now has increased orthopnea. The patient feels that he can only sleep sitting upright. Chest x-ray shows significant congestive heart failure. O2 saturations without supplemental oxygen were 86%. I discussed the case with the [facility] hospitalist. Consults Time Called: [phone] Consulting Physician: DENG Sorto Returned Call: [phone] I discussed the patient's case with DENG Sorto. He is going to evaluate the patient for further treatment. Impression Primary Impression: Congestive heart failure Additional Impression: Hypoxia Scribe Attestation The scribe's documentation has been prepared under my direction and personally reviewed by me in its entirety. I confirm that the note above accurately reflects all work, treatment, procedures, and medical decision making performed by me. Departure Information Dispostion Being Evaluated By Hospitalist Referrals Anthony Abarca M.D. (PCP) Problem Qualifiers
[2016-11-10 06:21] LABS: BASO % 0.1 %; BASO ABS # 0.01 K/uL (0-0.2); COMPLETE YES; EOS % 0.3 %; HEMATOCRIT 36.8 % (42-52); IG% 0.5 %; LYMPH % 5.9 %; LYMPH ABS # 0.86 K/uL (1.2-3.4); MEAN CELL VOLUME 92.5 fL (80-100); MEAN CORPUSCULAR HEMOGLOBIN 30.4 pg (25-34); MEAN CORPUSCULAR HGB CONC 32.9 g/dl (32-36); MEAN PLATELET VOLUME 9.3 fL (7.4-10.4); MONO % 4.1 %; NEUT % 89.1 %; PLATELET COUNT 235 K/uL (130-400); RED BLOOD COUNT 3.98 M/uL (4.7-6.1); WHITE BLOOD COUNT 14.67 K/uL (4.8-10.8)
[2016-11-10] MEDS ORDERED: LNX125 PO (06:23)
[2016-11-10] MEDS ORDERED: OMEP20CA9 PO (06:23)
[2016-11-10] MEDS ORDERED: OMEP40CA41 PO (06:24)
[2016-11-10] MEDS ORDERED: IPRASOL4 INH (06:25)
[2016-11-10] MEDS ORDERED: MELATAB2 PO (06:26)
--- NOTE | 2016-11-10 06:42 | DIAGNOSTIC IMAGING REPORT ---
CHEST 2 VIEWS ROUTINE CLINICAL HISTORY: Lung cancer, shortness of breath. COMPARISON STUDY: 09/26/2016 FINDINGS: There are postsurgical changes of a midline sternotomy. There is a left subclavian pacer/defibrillator present. There is a right subclavian A-Port catheter. There is right hilar enlargement suspicious for mass/adenopathy. There is diffuse an essential thickening. More focal airspace opacities are obscured by the patient's pacemaker generator. There are bilateral pleural effusions right greater than left. An element of congestive failure is suspected.[ IMPRESSION: 1. Suspected congestive failure/fluid overload with elevation interstitium and bilateral pleural effusions right greater than left 2. Right hilar enlargement. An underlying mass/adenopathy must be considered 3. More focal airspace opacities are present within the left midlung zone and right lung base. Electronically signed by: Milton Pond M.D. 11/10/2016 6:41 AM Dictated Date/Time: 11/10/2016 6:39 AM
[2016-11-10 06:51] LABS: ALT/SGPT 110 U/L (12-78); BLOOD UREA NITROGEN 28 mg/dl (7-18); BUN/CREATININE RATIO 45.9 (10-20); CALCIUM 8.3 mg/dl (8.5-10.1); CARBON DIOXIDE 27 mmol/L (21-32); CHLORIDE 101 mmol/L (98-107); CREATININE 0.61 mg/dl (0.60-1.40); GLUCOSE 106 mg/dl (70-99); POTASSIUM 4.4 mmol/L (3.5-5.1); SODIUM 138 mmol/L (136-145)
[2016-11-10 06:56] LABS: ALB/GLOB RATIO 0.8 (0.9-2); ALKALINE PHOSPHATASE 111 U/L (45-117); AST/SGOT 50 U/L (15-37); CKMB/CK RATIO 7.3 (0-3.0)
[2016-11-10] MEDS ORDERED: FUROSEMIDE INJ 20 MG in SYRINGE 0 ML IV STA (07:06)
[2016-11-10] MEDS ORDERED: FUROSEMIDE 40 MG/4 ML VIAL ONE (07:10)
[2016-11-10] MEDS ORDERED: PRED20TA PO (08:22)
[2016-11-10] MEDS ORDERED: ALUMINUM/MAGNESIUM/SIMETH (MAALOX MAX) 30 ML UDC PO PRN (08:30)
[2016-11-10] MEDS ORDERED: MAGNESIUM HYDROXIDE SUSP 30 ML UDC PO PRN (08:30)
[2016-11-10] MEDS ORDERED: ONDANSETRON INJ 2 MG/ML 2 ML VIAL IV PRN (08:30)
[2016-11-10] MEDS ORDERED: ALBUT/IPRATROP 3MG/0.5MG NEB 3 ML VIAL INH PRN (08:30)
[2016-11-10] MEDS ORDERED: ACETAMINOPHEN 325 MG TAB PO PRN (08:30)
[2016-11-10] MEDS: METOPROLOL TARTRATE 25 MG TAB PO SCH ×2 (09:00→20:15)
[2016-11-10] MEDS: SPIRONOLACTONE 25 MG TAB PO SCH (09:00)
[2016-11-10] MEDS: CLOPIDOGREL BISULFATE 75 MG TAB PO SCH (09:00)
[2016-11-10] MEDS: ALLOPURINOL 100 MG TAB PO SCH (09:00)
[2016-11-10] MEDS: TIOTROPIUM BROMIDE 5 PUFF/90 MCG INH INH SCH (09:00)
[2016-11-10] MEDS: RANITIDINE HCL 150 MG TAB PO SCH ×2 (09:00→11:28)
[2016-11-10] MEDS: ASPIRIN 81 MG ECTAB PO SCH (09:00)
[2016-11-10] MEDS: BUDESONIDE/FORMOTEROL FUMARATE 160/4.5 60 PUFFS/INHALER INH SCH ×2 (09:00→20:14)
--- NOTE | 2016-11-10 09:13 | History and Physical ---
History & Physical Date & Time of Service: Nov 10, 2016 at 08:38 Chief Complaint: Breathing Problem Primary Care Physician: Anthony Abarca M.D. History of Present Illness Source: patient, family (son at bedside), clinic records, hospital records This is an 81 y/o male with a history of lung adenocarcinoma, CHF, CAD with h/o CABG and cardiac stents, bi-ventricular ICD, HTN, HLD, COPD, and hypothyroidism who presented to the ED on 11/10 with worsening shortness of breath. The patient had noticed some worsening shortness of breath and dyspnea on exertion over the last few days, as well as worsening lower extremity edema. He states that last night when he went to bed, he felt more short of breath than usual. Around 3 am this morning, the patient woke up feeling very short of breath. The patient wears supplemental oxygen 2L NC at home, but only at nighttime. He complains of orthopnea recently as well. He reports having a mild cough that is productive with clear sputum. He also admits to some wheezing. He states that he feels somewhat more weak and fatigued than usual in the last few days. The patient denies any recent increase in sodium intake. His Lasix dose was decreased back in August of 2016, but he was not having any fluid issues until now. The patient denies fevers, chills, sweats, chest pain, palpitations , claudication, nausea, vomiting, abdominal pain, dysuria, hematuria, urinary retention, paralysis, numbness and tingling. Past Medical/Surgical History Medical Problems: (1) Gouty arthropathy Status: Chronic (2) Systolic heart failure Status: Resolved Surgical Problems: (1) S/P CABG (coronary artery bypass graft) Status: Resolved Family History Cancer FHx: cancer Heart disease Hypertension Lung disease Stroke Social History Smoking Status: Former Smoker Smokeless Tobacco Use: No Alcohol Use: none Drug Use: none Marital Status: Housing status: lives alone Occupational Status: retired Immunizations History of Influenza Vaccine: No Influenza Vaccine Date: Jul 10, 2011 History of Tetanus Vaccine?: Unknown History of Pneumococcal: Unknown Pneumococcal Date: Mar 10, 2007 History of Hepatitis B Vaccine: Unknown Multi-Drug Resistant Organisms History of MDRO: No Allergies Coded Allergies: Lisinopril (Verified Allergy, Unknown, Unknown, 11/10/16) Home Medications Scheduled Allopurinol (Zyloprim), 100 MG PO QAM Ascorbic Acid (Vitamin C), 500 MG PO BID Aspirin (Aspirin Ec), 81 MG PO DAILY Atorvastatin Calcium (Lipitor), 80 MG PO HS Budesonide/Formoterol Fumarate (Symbicort 160-4.5 Mcg/Act), 2 PUFFS INH BID Clopidogrel (Plavix), 75 MG PO DAILY Digoxin (Digoxin), 0.125 MG PO QAM Furosemide (Lasix), 20 MG PO DAILY Levothyroxine Sodium (Synthroid), 50 MCG PO QAM Metoprolol Tartrate (Lopressor) (Lopressor), 25 MG PO BID Multivitamin (Multivitamin), 1 TAB PO QAM Omeprazole (Prilosec), 40 MG PO HS Prednisone (Prednisone), 1 TAB PO DAILY Ranitidine (Zantac), 150 MG PO QAM Spironolactone (Aldactone), 25 MG PO QAM Tiotropium [place] Monohydrate (Spiriva Respimat), 2 PUFFS INH DAILY Valacyclovir Hcl (Valtrex), 1 GM PO BID Scheduled PRN Docusate Sodium (Stool Softener), 100 MG PO BID PRN for Constipation Ipratropium-Albuterol (Duoneb), 1 TREATMENT INH Q6 PRN for SOB/Wheezing Melatonin (Melatonin Maximum Strengt), 1 TAB PO HS PRN for Sleep Nitroglycerin (Nitrostat), 0.4 MG UT PRN PRN for CHEST PAIN Review of Systems Constitutional: + fatigue, + weakness, No chills, No fever, No sweats Eyes: + redness, No diplopia, No eye pain, No worsening of vision ENT: No hearing loss, No sore throat, No trouble swallowing (right eye, recent corneal tear and possible herpes infection, being treated with Valtrex) Respiratory: + cough, + dyspnea on exertion, + shortness of breath, + sputum ( clear), + wheezing Cardiovascular: + PND, + edema, + orthopnea, No chest pain, No claudication, No palpitations Abdomen: No nausea, No pain, No vomiting Musculoskeletal: No calf pain, No joint pain, No muscle pain Genitourinary - Male: No dysuria, No hematuria, No urinary retention Neurologic: No numbness/tingling, No paralysis, No weakness Integumentary: + problem reported (skin tears), No color change, No itch, No rash Physical Exam Vital Signs Date Time Temp Pulse Resp B/P Pulse Ox O2 Delivery O2 Flow Rate FiO2 11/10/16 08:22 72 18 118/75 94 Nasal Cannula 3.0 11/10/16 06:55 70 20 120/73 98 Nasal Cannula 3.0 11/10/16 05:44 72 11/10/16 05:37 93 Nasal Cannula 4.0 11/10/16 05:30 34.6 85 17 119/60 88 Room Air General Appearance: WD/WN, no apparent distress, + pertinent finding (appears chronically ill) Head: normocephalic, atraumatic Eyes: normal inspection, PERRL, EOMI, + pertinent finding (right eye with some minimal redness) ENT: normal ENT inspection, hearing grossly normal, + pertinent finding (thrush ) Neck: supple, no JVD, trachea midline Respiratory/Chest: lungs clear, normal breath sounds, no respiratory distress, + decreased breath sounds (diminished throughout, especially in bases bilaterally) Cardiovascular: no gallop, no murmur, + abnormal rhythm (regular rate) Abdomen/GI: normal bowel sounds, non tender, soft Extremities/Musculoskelatal: normal inspection, no calf tenderness, + swelling (2+ pitting edema in lower extremities bilaterally R>L. RLE chronically edematous, vein taken from that leg for CABG) Neurologic/Psych: alert, normal mood/affect, oriented x 3 Skin: normal color, warm/dry, no rash, + pertinent finding (skin tears on LUE and RUE) Diagnostics Laboratory Results Results Past 24 Hours Test 11/10/16 06:05 Range/Units White Blood Count 14.67 4.8-10.8 K/uL Red Blood Count 3.98 4.7-6.1 M/uL Hemoglobin 12.1 14.0-18.0 g/dL Hematocrit 36.8 42-52 % Mean Corpuscular Volume 92.5 80-100 fL Mean Corpuscular Hemoglobin 30.4 25-34 pg Mean Corpuscular Hemoglobin Concent 32.9 32-36 g/dl Platelet Count 235 130-400 K/uL Mean Platelet Volume 9.3 7.4-10.4 fL Neutrophils (%) (Auto) 89.1 % Lymphocytes (%) (Auto) 5.9 % Monocytes (%) (Auto) 4.1 % Eosinophils (%) (Auto) 0.3 % Basophils (%) (Auto) 0.1 % Neutrophils # (Auto) 13.07 1.4-6.5 K/uL Lymphocytes # (Auto) 0.86 1.2-3.4 K/uL Monocytes # (Auto) 0.60 0.11-0.59 K/uL Eosinophils # (Auto) 0.05 0-0.5 K/uL Basophils # (Auto) 0.01 0-0.2 K/uL RDW Standard Deviation 57.0 36.4-46.3 fL RDW Coefficient of Variation 16.8 11.5-14.5 % Immature Granulocyte % (Auto) 0.5 % Immature Granulocyte # (Auto) 0.08 0.00-0.02 K/uL Sodium Level 138 136-145 mmol/L Potassium Level 4.4 3.5-5.1 mmol/L Chloride Level 101 98-107 mmol/L Carbon Dioxide Level 27 21-32 mmol/L Anion Gap 10.0 3-11 mmol/L Blood Urea Nitrogen 28 7-18 mg/dl Creatinine 0.61 0.60-1.40 mg/dl Estimated GFR () 107.8 Estimated GFR (Non- 93.0 BUN/Creatinine Ratio 45.9 10-20 Random Glucose 106 70-99 mg/dl Calcium Level 8.3 8.5-10.1 mg/dl Total Bilirubin 0.5 0.2-1 mg/dl Aspartate Amino Transf (AST/SGOT) 50 15-37 U/L Alanine Aminotransferase (ALT/SGPT) 110 12-78 U/L Alkaline Phosphatase 111 45-117 U/L Total Creatine Kinase 45 39-308 U/L Creatine Kinase MB 3.3 0.5-3.6 ng/ml Creatine Kinase MB Ratio 7.3 0-3.0 Troponin I 0.028 0-0.045 ng/ml Pro-B-Type Natriuretic Peptide 3475 0-1800 pg/ml Total Protein 5.7 6.4-8.2 gm/dl Albumin 2.5 3.4-5.0 gm/dl Globulin 3.2 2.5-4.0 gm/dl Albumin/Globulin Ratio 0.8 0.9-2 Digoxin Level 1.6 0.8-2.0 ng/ml Diagnostic Radiology Reviewed the following studies and agree with interpretation as follows: Patient Name: DAXA MEJIA JR Unit Number: [id number] Dictated: 11/10/16638 Transcribed: 11/10/16638 ARG Printed Date/Time: [~ rep prt dt]/[~ rep prt tm] [~ rep ct labl] - [~ rep ct ivnm] [facility] Radiology Department [place] [id number] Dictated: 11/10/16638 Transcribed: 11/10/16638 ARG Printed Date/Time: [~ rep prt dt]/[~ rep prt tm] [~ rep ct labl] - [~ rep ct ivnm] Patient: DAXA MEJIA JR Address1: [address] [facility] [address] Rec: [id number] Address2: Acct ID: [id number] [facility] Zip: [place] [address] Date: 1935 Sex: M Room/Bed: Ref Phy: Anthony Abarca M.D. SC: ANDRES [place] Phy: Report #: [id number] [facility] Phy: Anthony Abarca M.D. Test: CXR Admit Phy: Salesperson Hosiery: [employer] Interpreting Phy: Milton Pond M.D. Diagnosis: BREATHING PROBLEM Ordering Phy: Carmen Sheets D.O. Service Date: 11/10/16 Admit Date: 11/10/16 MNE: [id number] CONF: DICTATED BY: Milton Pond M.D.]] CC: Carmen Sheets D.O. Hester, Christopher E., M.D. Endcc: [~ rep ct add3]] CHEST 2 VIEWS ROUTINE CLINICAL HISTORY: Lung cancer, shortness of breath. COMPARISON STUDY: 09/26/2016 FINDINGS: There are postsurgical changes of a midline sternotomy. There is a left subclavian pacer/defibrillator present. There is a right subclavian A-Port catheter. There is right hilar enlargement suspicious for mass/adenopathy. There is diffuse an essential thickening. More focal airspace opacities are obscured by the patient's pacemaker generator. There are bilateral pleural effusions right greater than left. An element of congestive failure is suspected.[ IMPRESSION: 1. Suspected congestive failure/fluid overload with elevation interstitium and bilateral pleural effusions right greater than left 2. Right hilar enlargement. An underlying mass/adenopathy must be considered 3. More focal airspace opacities are present within the left midlung zone and right lung base. Electronically signed by: Milton Pond M.D. 11/10/2016 6:41 AM Dictated Date/Time: 11/10/2016 6:39 AM The status of this report is Signed. Draft = Not yet reviewed or approved by Radiologist. Signed = Reviewed and approved by Radiologist. <AttendingPhy></AttendingPhy> <FamilyPhy>Anthony Abarca M.D.</FamilyPhy > <PrimaryPhy>Anthony Abarca M.D.</PrimaryPhy> <UnitNumber>[id number]</ UnitNumber> <VisitNumber>[id number]</VisitNumber> <PatientName>DAXA MEJIA JR </PatientName> <DateOfBirth>1935</DateOfBirth> <Location>[facility]</Location> <ServiceDate>11/10/16</ServiceDate> <MNE>ESINDI</MNE> <OrderingPhy>Carmen Sheets D.O.</OrderingPhy> <OrderingPhyMNE>f rep ord dr pathak</OrderingPhyMNE> < DictatingPhyMNE>f rep dict dr pathak</DictatingPhyMNE> <CCListMNE>f rep ct mne</ CCListMNE> <AdmittingPhyMNE>f pt admit dr pathak</AdmittingPhyMNE> <AttendingPhyMNE >f pt attend dr pathak</AttendingPhyMNE> <ConsultingPhyMNE>f pt consult dr pathak</ConsultingPhyMNE> <FamilyPhyMNE>f pt fam dr pathak</FamilyPhyMNE> <OtherPhyMNE>f pt other dr pathak</OtherPhyMNE> < PrimaryPhyMNE>f pt prim care dr pathak</PrimaryPhyMNE> <ReferringPhyMNE>f pt referring dr pathak</ReferringPhyMNE> EKG Reviewed EKG and agree with interpretation as follows: 67 bpm, ventricular-paced rhythm with bi-ventricular pacemaker Impression Assessment and Plan 81 y/o male with a history of lung adenocarcinoma, CHF, CAD with h/o CABG and cardiac stents, bi-ventricular ICD, HTN, HLD, COPD, and hypothyroidism who presented to the ED on 11/10 with worsening shortness of breath. Pt also c/o worsening lower extremity edema, orthopnea, PND, and weakness and fatigue. CXR shows congestive failure with bilateral pleural effusions R>L. EKG shows no ischemic changes. Cardiac enzymes negative, BNP elevated at 3475. Acute on chronic diastolic CHF -Admit to telemetry for observation -Lasix 40 mg IV qd -Daily weights -Strict I/Os -Repeat EKG tomorrow am, prn with chest pain -Continue digoxin 0.125 mg PO qd, digoxin level therapeutic -Continue spironolactone 25 mg PO qd -Pt had echo done on 09/21/16: Normal LV size and wall thickness. Low normal LV systolic function, LVEF 50-55%. Abnormal septal motion consistent with conduction abnormality/postoperative states. Normal RV size, mild RV dysfunction. Mild aortic valve sclerosis without stenosis. Mild to moderate AI , mild MR. Diastolic dysfunction. Normal estimated RA and PA pressures. No significant changes compared to 06/02/16 study. Thrush -Nystatin 5 mL PO QID x 7 days Leukocytosis--appears to be chronic. Pt takes chronic Prednisone 20 mg PO qd for anorexia CAD -Continue Plavix 75 mg PO qd and ASA 81 mg PO qd HTN--stable -Continue metoprolol tartrate 25 mg PO BID HLD -Continue atorvastatin 80 mg PO qd COPD -Continue Spiriva 2 puffs inh qd and Symbicort 2 puffs inh BID Hypothyroidism -Continue Synthroid 50 mcg PO qd DVT prophylaxis -Enoxaparin 40 mg SC q24h -AGNES [place] Code Status -Level I, FULL RESUSCITATION STATUS I agree with PA assessment and plan and have seen and examined pt myself Pt presents with worsening sob VSS Hemodynamically stable Lungs - Crackles in bilateral lung mendoza Notably CHF from CXR and inc swelling and BNP Cont IV lasix at this time Cont to monitor I/Os and daily weights No ischemic changes on EKG, paced rhythm Level of Care Telemetry (observation) Resuscitation Status FULL RESUSCITATION VTE Prophylaxis VTE Risk Assessment Done? Y/N: Yes Risk Level: Moderate Given or contraindicated: Enoxaparin (Lovenox)SQ, T.E.D. Stockings, SCD's
[2016-11-10] MEDS ORDERED: PATIENT'S HEIGHT AND/OR WEIGHT NEEDED SCH (10:30)
[2016-11-10] MEDS ORDERED: IV FLUIDS COMPLETED PRN (10:45)
[2016-11-10] MEDS: LEVOTHYROXINE 50 MCG TAB PO SCH (11:00)
[2016-11-10] MEDS: NYSTATIN SUSP 500,000 U/5 ML UDC PO SCH ×4 (11:28→20:14)
[2016-11-10] MEDS: ENOXAPARIN 40 MG/0.4 ML SYR SC SCH (15:20)
[2016-11-10] MEDS: DIGOXIN 0.125 MG TAB PO SCH (16:33)
[2016-11-10] MEDS: ATORVASTATIN 40 MG TAB PO SCH (20:16)
[2016-11-10] MEDS: PANTOprazole SOD 40 MG TAB PO SCH (20:17)
[2016-11-11] VITALS (7 sets, daily range): BP systolic 105–144; BP diastolic 51–82; PULSE 60–82; TEMP 36.4–36.8; O2SAT 95–99
[2016-11-11] MEDS: LEVOTHYROXINE 50 MCG TAB PO SCH (05:58)
[2016-11-11 06:15] LABS: MEAN CELL VOLUME 92.2 fL (80-100); MEAN CORPUSCULAR HEMOGLOBIN 29.6 pg (25-34); MEAN CORPUSCULAR HGB CONC 32.1 g/dl (32-36); MEAN PLATELET VOLUME 9.1 fL (7.4-10.4); PLATELET COUNT 248 K/uL (130-400); RED BLOOD COUNT 4.12 M/uL (4.7-6.1); WHITE BLOOD COUNT 12.24 K/uL (4.8-10.8)
[2016-11-11 06:45] LABS: BUN/CREATININE RATIO 31.9 (10-20); CALCIUM 8.4 mg/dl (8.5-10.1); CREATININE 0.59 mg/dl (0.60-1.40)
[2016-11-11] MEDS: ENOXAPARIN 40 MG/0.4 ML SYR SC SCH (08:14)
[2016-11-11] MEDS: BUDESONIDE/FORMOTEROL FUMARATE 160/4.5 60 PUFFS/INHALER INH SCH ×2 (08:14→20:50)
[2016-11-11] MEDS: NYSTATIN SUSP 500,000 U/5 ML UDC PO SCH ×4 (08:15→20:48)
[2016-11-11] MEDS: ASPIRIN 81 MG ECTAB PO SCH (08:15)
[2016-11-11] MEDS: RANITIDINE HCL 150 MG TAB PO SCH (08:15)
[2016-11-11] MEDS: METOPROLOL TARTRATE 25 MG TAB PO SCH ×2 (08:15→20:48)
[2016-11-11] MEDS: SPIRONOLACTONE 25 MG TAB PO SCH (08:16)
[2016-11-11] MEDS: CLOPIDOGREL BISULFATE 75 MG TAB PO SCH (08:16)
[2016-11-11] MEDS: TIOTROPIUM BROMIDE 5 PUFF/90 MCG INH INH SCH (08:17)
[2016-11-11] MEDS: ALLOPURINOL 100 MG TAB PO SCH (08:18)
[2016-11-11] MEDS ORDERED: FUROSEMIDE INJ 40 MG in SYRINGE 0 ML IV SCH (09:00)
[2016-11-11] MEDS: FUROSEMIDE INJ 40 MG in SYRINGE 0 ML IV SCH ×2 (10:01→20:48)
--- NOTE | 2016-11-11 14:38 | Hospitalist Progress Note ---
Hospitalist Progress Note Date of Service Nov 11, 2016. (Ella Kurtz ., LUIS-C) Subjective Pt evaluation today including: conversation w/ patient, physical exam, chart review, lab review, review of inpatient medication list PO Intake: Tolerating PO diet, decreased appetite (chronic) Voiding: no voiding problems Patient still complains of SOB and MCKAY but states that this has improved. He is still on continuous supplemental oxygen at 2L NC. He reports that his productive cough has also seemed to improve. He complains of wheezing and hoarseness as well as weakness and fatigue. He has little appetite, but this is a chronic issue. The patient denies fevers, chills, sweats, chest pain, palpitations, claudication, nausea, vomiting, abdominal pain, dysuria, hematuria , urinary retention, paralysis, weakness, numbness and tingling. Additional Comments: See HPI for pertinent positives and negatives. All other systems reviewed and negative. (Ella Kurtz ., PA-C) Objective Vital Signs Date Time Temp Pulse Resp B/P Pulse Ox O2 Delivery O2 Flow Rate FiO2 11/11/16 12:00 Nasal Cannula 2.0 11/11/16 11:09 36.5 82 20 126/67 95 Nasal Cannula 2.0 Humidified Oxygen 11/11/16 08:00 Nasal Cannula 2.0 11/11/16 07:52 36.8 69 20 137/82 95 Nasal Cannula 2.0 Humidified Oxygen 11/11/16 04:00 Nasal Cannula 2.0 11/11/16 03:35 36.5 72 20 105/51 96 Nasal Cannula 2.0 11/10/16 23:59 Nasal Cannula 2.0 11/10/16 23:20 36.6 84 24 136/63 92 Nasal Cannula 2.0 11/10/16 20:00 97 Nasal Cannula 2.0 11/10/16 19:57 36.5 84 20 159/81 93 Nasal Cannula 2.0 11/10/16 16:33 74 11/10/16 16:00 97 Nasal Cannula 2.0 11/10/16 15:33 36.3 82 22 136/56 Nasal Cannula 2.0 (Ella Kurtz ., LUIS-C) Physical Exam General Appearance: WD/WN, no apparent distress, + pertinent finding (appears chronically ill) Eyes: normal inspection, PERRL, EOMI ENT: normal ENT inspection, hearing grossly normal, + pertinent finding ( thrush improved) Neck: supple, no JVD, trachea midline Respiratory/Chest: lungs clear, normal breath sounds, no respiratory distress, + decreased breath sounds Cardiovascular: regular rate, rhythm, no gallop, no murmur Abdomen: normal bowel sounds, non tender, soft Extremities: non-tender, normal inspection, + swelling (1+ pitting edema LLE, 2 + pitting edema RLE) Neurologic/Psychiatric: alert, normal mood/affect, oriented x 3 Skin: normal color, warm/dry, no rash (Ella Kurtz ., PA-C) Laboratory Results Last 24 Hours Test 11/11/16 05:40 White Blood Count 12.24 K/uL Red Blood Count 4.12 M/uL Hemoglobin 12.2 g/dL Hematocrit 38.0 % Mean Corpuscular Volume 92.2 fL Mean Corpuscular Hemoglobin 29.6 pg Mean Corpuscular Hemoglobin Concent 32.1 g/dl RDW Standard Deviation 56.9 fL RDW Coefficient of Variation 16.8 % Platelet Count 248 K/uL Mean Platelet Volume 9.1 fL Sodium Level 142 mmol/L Potassium Level 4.0 mmol/L Chloride Level 102 mmol/L Carbon Dioxide Level 32 mmol/L Anion Gap 8.0 mmol/L Blood Urea Nitrogen 19 mg/dl Creatinine 0.59 mg/dl Est Creatinine Clear Calc Drug Dose 77.7 ml/min Estimated GFR () 109.3 Estimated GFR (Non- 94.3 BUN/Creatinine Ratio 31.9 Random Glucose 90 mg/dl Calcium Level 8.4 mg/dl (Ella Kurtz ., PA-C) Assessment and Plan 81 y/o male with a history of lung adenocarcinoma, CHF, CAD with h/o CABG and cardiac stents, bi-ventricular ICD, HTN, HLD, COPD, and hypothyroidism who presented to the ED on 11/10 with worsening shortness of breath. Pt also c/o worsening lower extremity edema, orthopnea, PND, and weakness and fatigue. CXR shows congestive failure with bilateral pleural effusions R>L. EKG shows no ischemic changes. Cardiac enzymes negative, BNP elevated at 3475. Acute on chronic diastolic CHF -Admit to telemetry. Full admission status -Increase Lasix to Lasix 40 mg IV BID. Only 500 mL urine output 11/10 -Daily weights -Strict I/Os -Repeat EKG 11/11 64 bpm, ventricular paced rhythm -Continue digoxin 0.125 mg PO qd, digoxin level therapeutic -Continue spironolactone 25 mg PO qd -Pt had echo done on 09/21/16: Normal LV size and wall thickness. Low normal LV systolic function, LVEF 50-55%. Abnormal septal motion consistent with conduction abnormality/postoperative states. Normal RV size, mild RV dysfunction. Mild aortic valve sclerosis without stenosis. Mild to moderate AI , mild MR. Diastolic dysfunction. Normal estimated RA and PA pressures. No significant changes compared to 06/02/16 study. Thrush -Nystatin 5 mL PO QID x 7 days. Day #2 Leukocytosis--appears to be chronic. Pt takes chronic Prednisone 20 mg PO qd for anorexia CAD -Continue Plavix 75 mg PO qd and ASA 81 mg PO qd HTN--stable -Continue metoprolol tartrate 25 mg PO BID HLD -Continue atorvastatin 80 mg PO qd COPD -Continue Spiriva 2 puffs inh qd and Symbicort 2 puffs inh BID Hypothyroidism -Continue Synthroid 50 mcg PO qd DVT prophylaxis -Enoxaparin 40 mg SC q24h -AGNES [place] and SCDs Code Status -Level I, FULL RESUSCITATION STATUS (Ella Kurtz ., PA-C) I agree with PA assessment and plan and have seen and examined pt myself VSS Labs reviewed CXR reviewed Lungs: scattered crackles at bases COnt IV diuresis, likely switch to PO lasix in AM (Niko Saini D.O.)
[2016-11-11] MEDS: DIGOXIN 0.125 MG TAB PO SCH (16:21)
[2016-11-11] MEDS: PANTOprazole SOD 40 MG TAB PO SCH (20:49)
[2016-11-11] MEDS: ATORVASTATIN 40 MG TAB PO SCH (20:49)
[2016-11-12] VITALS (9 sets, daily range): BP systolic 108–147; BP diastolic 67–86; PULSE 63–80; TEMP 36.5–36.8; O2SAT 93–98
[2016-11-12] MEDS: LEVOTHYROXINE 50 MCG TAB PO SCH (05:27)
[2016-11-12 06:00] LABS: HEMATOCRIT 36.6 % (42-52); MEAN CELL VOLUME 92.2 fL (80-100); MEAN CORPUSCULAR HEMOGLOBIN 30.2 pg (25-34); MEAN CORPUSCULAR HGB CONC 32.8 g/dl (32-36); MEAN PLATELET VOLUME 9.2 fL (7.4-10.4); PLATELET COUNT 251 K/uL (130-400); RED BLOOD COUNT 3.97 M/uL (4.7-6.1); WHITE BLOOD COUNT 11.57 K/uL (4.8-10.8)
[2016-11-12 06:33] LABS: BUN/CREATININE RATIO 29.9 (10-20); CALCIUM 8.1 mg/dl (8.5-10.1); CREATININE 0.64 mg/dl (0.60-1.40); POTASSIUM 3.6 mmol/L (3.5-5.1)
--- NOTE | 2016-11-12 07:42 | Clinical Documentation Query ---
RAFAEL Webb : CLINICAL DOCUMENTATION QUERY Patient is an 81 year old male admitted for treatment of acute on chronic diastolic CHF. Documentation includes "thrush". He is being treated with Nystatin PO QID x 7 days. Although implicit, this cannot be assumed by the professional business control manager to be oral candidiasis. Please clarify explicitly in your documentation as this directly impacts DRG assignment. Thank you. In your clinical opinion is this patient being managed for: (X ) Oral thrush ( ) Other explanation of clinical findings (Please Explain) ( ) Unable to determine (Please Define) ( ) Need to Discuss ( ) Not Agree The medical record reflects the following clinical findings, treatment, and risk factors. Clinical Indicators: As above Treatment:He is being treated with Nystatin PO QID x 7 days. Risk Factors: Cancer, prednisone therapy, frequent antibiotics Please clarify and document your clinical opinion in the progress notes and discharge summary. Terms such as "probable", "suspected", "likely", "questionable", "possible", or "still to be ruled out" are acceptable. IF IN AGREEMENT, YOU MUST DOCUMENT ABOVE DIAGNOSTIC STATEMENT IN DAILY PROGRESS NOTES AND DISCHARGE SUMMARY. This document is not part of the patient's record. Thank You, Ilan Renteria, RN [phone]
--- NOTE | 2016-11-12 07:43 | Clinical Documentation Query ---
ABIGAIL JIMENES : CLINICAL DOCUMENTATION QUERY Patient is an 81 year old male admitted for treatment of acute on chronic diastolic CHF. Documentation includes "thrush". He is being treated with Nystatin PO QID x 7 days. Although implicit, this cannot be assumed by the professional special education paraprofessional to be oral candidiasis. Please clarify explicitly in your documentation as this directly impacts DRG assignment. Thank you. In your clinical opinion is this patient being managed for: ( x ) Oral thrush-oral candidiasis ( ) Other explanation of clinical findings (Please Explain) ( ) Unable to determine (Please Define) ( ) Need to Discuss ( ) Not Agree The medical record reflects the following clinical findings, treatment, and risk factors. Clinical Indicators: As above Treatment:He is being treated with Nystatin PO QID x 7 days. Risk Factors: Cancer, prednisone therapy, frequent antibiotics Please clarify and document your clinical opinion in the progress notes and discharge summary. Terms such as "probable", "suspected", "likely", "questionable", "possible", or "still to be ruled out" are acceptable. IF IN AGREEMENT, YOU MUST DOCUMENT ABOVE DIAGNOSTIC STATEMENT IN DAILY PROGRESS NOTES AND DISCHARGE SUMMARY. This document is not part of the patient's record. Thank You, Ilan Renteria, RN [phone]
[2016-11-12] MEDS: METOPROLOL TARTRATE 25 MG TAB PO SCH ×2 (08:11→19:57)
[2016-11-12] MEDS: ASPIRIN 81 MG ECTAB PO SCH (08:11)
[2016-11-12] MEDS: ALLOPURINOL 100 MG TAB PO SCH (08:11)
[2016-11-12] MEDS: RANITIDINE HCL 150 MG TAB PO SCH (08:11)
[2016-11-12] MEDS: SPIRONOLACTONE 25 MG TAB PO SCH (08:12)
[2016-11-12] MEDS: NYSTATIN SUSP 500,000 U/5 ML UDC PO SCH ×4 (08:12→19:56)
[2016-11-12] MEDS: CLOPIDOGREL BISULFATE 75 MG TAB PO SCH (08:12)
[2016-11-12] MEDS: FUROSEMIDE INJ 40 MG in SYRINGE 0 ML IV SCH ×2 (08:13→19:56)
[2016-11-12] MEDS: ENOXAPARIN 40 MG/0.4 ML SYR SC SCH (08:13)
[2016-11-12] MEDS: TIOTROPIUM BROMIDE 5 PUFF/90 MCG INH INH SCH (08:13)
[2016-11-12] MEDS: BUDESONIDE/FORMOTEROL FUMARATE 160/4.5 60 PUFFS/INHALER INH SCH ×2 (08:14→19:56)
--- NOTE | 2016-11-12 11:23 | Hospitalist Progress Note ---
Hospitalist Progress Note Date of Service Nov 12, 2016. (Ella Kurtz ., LUIS-C) Subjective Pt evaluation today including: conversation w/ patient, physical exam, chart review, lab review, review of inpatient medication list PO Intake: Tolerating PO diet Voiding: no voiding problems Patient reports feeling worse compared to yesterday. He states that his shortness of breath and dyspnea on exertion have gotten worse. He still complains of a productive cough which is about the same as yesterday. He is still very hoarse and now has a sore throat. He also admits to wheezing now. The patient denies fevers, chills, sweats, chest pain, palpitations, claudication, nausea, vomiting, abdominal pain, dysuria, hematuria, urinary retention, paralysis, weakness, numbness and tingling. Additional Comments: See HPI for pertinent positives and negatives. All other systems reviewed and negative. (Ella Kurtz ., PA-C) Objective Vital Signs Date Time Temp Pulse Resp B/P Pulse Ox O2 Delivery O2 Flow Rate FiO2 11/12/16 08:04 36.6 78 18 108/67 98 11/12/16 08:00 Nasal Cannula 2.0 11/12/16 04:00 Nasal Cannula 2.0 11/12/16 03:19 36.5 66 20 142/78 97 Nasal Cannula 2.0 11/11/16 23:59 Nasal Cannula 2.0 11/11/16 23:19 36.4 71 24 138/76 97 Nasal Cannula 2.0 11/11/16 20:00 Nasal Cannula 2.0 11/11/16 19:58 63 16 96 Nasal Cannula 2.0 11/11/16 19:28 36.4 67 16 144/79 99 Nasal Cannula 2.0 Humidified Oxygen 11/11/16 16:21 60 11/11/16 16:00 Nasal Cannula 2.0 11/11/16 15:21 36.6 60 18 123/73 96 Nasal Cannula 2.0 Humidified Oxygen 11/11/16 12:00 Nasal Cannula 2.0 (Ella Kurtz ., PA-C) Physical Exam General Appearance: WD/WN, no apparent distress, + pertinent finding (appears chronically ill) Eyes: normal inspection, PERRL, EOMI ENT: normal ENT inspection, hearing grossly normal, + pertinent finding ( thrush improved) Neck: supple, no JVD, trachea midline Respiratory/Chest: normal breath sounds, no respiratory distress, + decreased breath sounds (very little air movement) Cardiovascular: regular rate, rhythm, no gallop, no murmur Abdomen: normal bowel sounds, non tender, soft Extremities: non-tender, normal inspection, + swelling (2+ pitting edema RLE, 1 + pitting edema LLE) Neurologic/Psychiatric: alert, normal mood/affect, oriented x 3 Skin: normal color, warm/dry, no rash, + pertinent finding (skin tears on arms bilaterally) (Ella Kurtz ., PA-C) Laboratory Results Last 24 Hours Test 11/12/16 05:31 White Blood Count 11.57 K/uL Red Blood Count 3.97 M/uL Hemoglobin 12.0 g/dL Hematocrit 36.6 % Mean Corpuscular Volume 92.2 fL Mean Corpuscular Hemoglobin 30.2 pg Mean Corpuscular Hemoglobin Concent 32.8 g/dl RDW Standard Deviation 56.2 fL RDW Coefficient of Variation 16.7 % Platelet Count 251 K/uL Mean Platelet Volume 9.2 fL Sodium Level 143 mmol/L Potassium Level 3.6 mmol/L Chloride Level 101 mmol/L Carbon Dioxide Level 35 mmol/L Anion Gap 7.0 mmol/L Blood Urea Nitrogen 19 mg/dl Creatinine 0.64 mg/dl Est Creatinine Clear Calc Drug Dose 71.6 ml/min Estimated GFR () 105.7 Estimated GFR (Non- 91.2 BUN/Creatinine Ratio 29.9 Random Glucose 82 mg/dl Calcium Level 8.1 mg/dl (Ella Kurtz ., PA-C) Assessment and Plan 81 y/o male with a history of lung adenocarcinoma, CHF, CAD with h/o CABG and cardiac stents, bi-ventricular ICD, HTN, HLD, COPD, and hypothyroidism who presented to the ED on 11/10 with worsening shortness of breath. Pt also c/o worsening lower extremity edema, orthopnea, PND, and weakness and fatigue. CXR shows congestive failure with bilateral pleural effusions R>L. EKG shows no ischemic changes. Cardiac enzymes negative, BNP elevated at 3475. Acute on chronic diastolic CHF -Admit to telemetry. Full admission status -Continue Lasix 40 mg IV BID. 1500 mL urine output 11/11 -Daily weights -Strict I/Os -Repeat EKG 11/11 64 bpm, ventricular paced rhythm -Continue digoxin 0.125 mg PO qd, digoxin level therapeutic -Continue spironolactone 25 mg PO qd -Pt had echo done on 09/21/16: Normal LV size and wall thickness. Low normal LV systolic function, LVEF 50-55%. Abnormal septal motion consistent with conduction abnormality/postoperative states. Normal RV size, mild RV dysfunction. Mild aortic valve sclerosis without stenosis. Mild to moderate AI , mild MR. Diastolic dysfunction. Normal estimated RA and PA pressures. No significant changes compared to 06/02/16 study. -Duonebs QIDR scheduled and q2h prn SOB/wheezing Oral candidiasis -Nystatin 5 mL PO QID x 7 days. Day #3 Leukocytosis--improving. Appears to be chronic. Pt takes chronic Prednisone 20 mg PO qd for anorexia CAD -Continue Plavix 75 mg PO qd and ASA 81 mg PO qd HTN--stable -Continue metoprolol tartrate 25 mg PO BID HLD -Continue atorvastatin 80 mg PO qd COPD -Continue Spiriva 2 puffs inh qd and Symbicort 2 puffs inh BID Hypothyroidism -Continue Synthroid 50 mcg PO qd DVT prophylaxis -Enoxaparin 40 mg SC q24h -AGNES [place] and SCDs Code Status -Level I, FULL RESUSCITATION STATUS (Ella Kurtz ., PA-C) I agree with PA assessment and plan and have personally seen and examined pt myself VSS Labs reviewed Pt reports worsening in resp symptoms, worsening sob Cont IV diuresis at this time Cont duonebs (Niko Saini D.Navdeep.)
[2016-11-12] MEDS: ALBUT/IPRATROP 3MG/0.5MG NEB 3 ML VIAL INH SCH ×3 (12:28→19:20)
[2016-11-12] MEDS: COUGH DROP (SUGAR FREE) LOZ 24 LOZ/1 BOX PO SCH ×2 (13:27→19:58)
[2016-11-12] MEDS: DIGOXIN 0.125 MG TAB PO SCH (15:39)
[2016-11-12] MEDS: ATORVASTATIN 40 MG TAB PO SCH (19:57)
[2016-11-12] MEDS: PANTOprazole SOD 40 MG TAB PO SCH (19:59)
[2016-11-13] VITALS (11 sets, daily range): BP systolic 110–154; BP diastolic 55–72; PULSE 57–85; TEMP 36.1–37; O2SAT 91–100
[2016-11-13] MEDS: LEVOTHYROXINE 50 MCG TAB PO SCH (06:14)
[2016-11-13 06:20] LABS: HEMATOCRIT 37.1 % (42-52); MEAN CELL VOLUME 93.5 fL (80-100); MEAN CORPUSCULAR HEMOGLOBIN 29.5 pg (25-34); MEAN CORPUSCULAR HGB CONC 31.5 g/dl (32-36); MEAN PLATELET VOLUME 9.1 fL (7.4-10.4); PLATELET COUNT 230 K/uL (130-400); RED BLOOD COUNT 3.97 M/uL (4.7-6.1)
[2016-11-13 06:54] LABS: BUN/CREATININE RATIO 28.8 (10-20); CALCIUM 7.8 mg/dl (8.5-10.1); CREATININE 0.56 mg/dl (0.60-1.40); POTASSIUM 3.5 mmol/L (3.5-5.1)
[2016-11-13] MEDS: ALBUT/IPRATROP 3MG/0.5MG NEB 3 ML VIAL INH SCH ×4 (07:07→19:42)
[2016-11-13] MEDS: TIOTROPIUM BROMIDE 5 PUFF/90 MCG INH INH SCH (07:34)
[2016-11-13] MEDS: FUROSEMIDE INJ 40 MG in SYRINGE 0 ML IV SCH ×2 (07:34→21:02)
[2016-11-13] MEDS: RANITIDINE HCL 150 MG TAB PO SCH (07:34)
[2016-11-13] MEDS: METOPROLOL TARTRATE 25 MG TAB PO SCH ×2 (07:34→21:03)
[2016-11-13] MEDS: BUDESONIDE/FORMOTEROL FUMARATE 160/4.5 60 PUFFS/INHALER INH SCH ×2 (07:34→21:02)
[2016-11-13] MEDS: NYSTATIN SUSP 500,000 U/5 ML UDC PO SCH ×4 (07:35→21:03)
[2016-11-13] MEDS: ASPIRIN 81 MG ECTAB PO SCH (07:35)
[2016-11-13] MEDS: CLOPIDOGREL BISULFATE 75 MG TAB PO SCH (07:35)
[2016-11-13] MEDS: SPIRONOLACTONE 25 MG TAB PO SCH (07:35)
[2016-11-13] MEDS: ALLOPURINOL 100 MG TAB PO SCH (07:36)
[2016-11-13] MEDS: ENOXAPARIN 40 MG/0.4 ML SYR SC SCH (07:36)
[2016-11-13] MEDS: COUGH DROP (SUGAR FREE) LOZ 24 LOZ/1 BOX PO SCH ×3 (07:41→21:04)
[2016-11-13] MEDS ORDERED: DOCUSATE SODIUM 100 MG CAP PO ONE (09:07)
--- NOTE | 2016-11-13 15:04 | Hospitalist Progress Note ---
Hospitalist Progress Note Date of Service Nov 13, 2016. (Ella Kurtz ., TCC) Subjective Pt evaluation today including: conversation w/ patient, physical exam, chart review, lab review, review of inpatient medication list PO Intake: Tolerating PO diet Voiding: no voiding problems Patient reports that his SOB is improved but still not back to baseline. He has a bit of a cough with little production and admits to some wheezing. He still complains of being more weak and fatigued than normal. He denies any sore throat or congestion today, but his hoarse voice has gotten worse and he is barely able to talk. He also reports being constipated. The patient denies fevers, chills, sweats, chest pain, palpitations, claudication, nausea, vomiting , abdominal pain, dysuria, hematuria, urinary retention, paralysis, weakness, numbness and tingling. Additional Comments: See HPI for pertinent positives and negatives. All other systems reviewed and negative. (Ella Kurtz ., LUIS-C) Objective Vital Signs Date Time Temp Pulse Resp B/P Pulse Ox O2 Delivery O2 Flow Rate FiO2 11/13/16 11:09 37.0 68 18 110/55 95 11/13/16 11:02 78 18 93 Nasal Cannula 2.0 11/13/16 08:13 36.9 65 18 113/67 95 11/13/16 08:11 36.9 69 18 129/63 93 11/13/16 07:30 Nasal Cannula 2.0 11/13/16 07:07 81 18 91 Nasal Cannula 2.0 11/13/16 04:01 Room Air 11/13/16 03:59 36.1 78 18 154/72 94 Nasal Cannula 2.0 11/12/16 23:59 Room Air 11/12/16 23:42 36.8 64 18 127/86 98 Nasal Cannula 2.0 11/12/16 20:00 Room Air 11/12/16 19:41 36.6 80 18 147/73 97 Nasal Cannula 2.0 11/12/16 19:20 72 18 97 Nasal Cannula 2.0 11/12/16 16:00 Nasal Cannula 2.0 11/12/16 15:39 72 11/12/16 15:30 72 16 98 Nasal Cannula 2.0 11/12/16 15:19 36.6 63 18 114/71 93 Nasal Cannula (Ella Kurtz ., PA-C) Physical Exam General Appearance: WD/WN, no apparent distress, + pertinent finding (appears chronically ill) Eyes: normal inspection, PERRL, EOMI ENT: normal ENT inspection, hearing grossly normal, + pertinent finding ( thrush improved) Neck: supple, no JVD, trachea midline Respiratory/Chest: normal breath sounds, no respiratory distress, + decreased breath sounds (bases) Cardiovascular: regular rate, rhythm, no gallop, no murmur Abdomen: normal bowel sounds, non tender, soft Extremities: non-tender, normal inspection, + swelling (trace pitting edema R>L ) Neurologic/Psychiatric: alert, normal mood/affect, oriented x 3 Skin: normal color, warm/dry, no rash, + pertinent finding (skin terms upper extremities bilaterally) (Ella Kurtz ., PA-C) Laboratory Results Last 24 Hours Test 11/13/16 06:10 White Blood Count 10.00 K/uL Red Blood Count 3.97 M/uL Hemoglobin 11.7 g/dL Hematocrit 37.1 % Mean Corpuscular Volume 93.5 fL Mean Corpuscular Hemoglobin 29.5 pg Mean Corpuscular Hemoglobin Concent 31.5 g/dl RDW Standard Deviation 57.0 fL RDW Coefficient of Variation 16.7 % Platelet Count 230 K/uL Mean Platelet Volume 9.1 fL Sodium Level 141 mmol/L Potassium Level 3.5 mmol/L Chloride Level 98 mmol/L Carbon Dioxide Level 37 mmol/L Anion Gap 6.0 mmol/L Blood Urea Nitrogen 16 mg/dl Creatinine 0.56 mg/dl Est Creatinine Clear Calc Drug Dose 81.8 ml/min Estimated GFR () 111.6 Estimated GFR (Non- 96.3 BUN/Creatinine Ratio 28.8 Random Glucose 89 mg/dl Calcium Level 7.8 mg/dl (Ella Kurtz ., PA-C) Assessment and Plan 81 y/o male with a history of lung adenocarcinoma, CHF, CAD with h/o CABG and cardiac stents, bi-ventricular ICD, HTN, HLD, COPD, and hypothyroidism who presented to the ED on 11/10 with worsening shortness of breath. Pt also c/o worsening lower extremity edema, orthopnea, PND, and weakness and fatigue. CXR shows congestive failure with bilateral pleural effusions R>L. EKG shows no ischemic changes. Cardiac enzymes negative, BNP elevated at 3475. Acute on chronic diastolic CHF -Admit to telemetry. Full admission status -Continue Lasix 40 mg IV BID. 1425 mL urine output 11/12 -Daily weights -Strict I/Os -Repeat EKG 11/11 64 bpm, ventricular paced rhythm -Continue digoxin 0.125 mg PO qd, digoxin level therapeutic -Continue spironolactone 25 mg PO qd -Pt had echo done on 09/21/16: Normal LV size and wall thickness. Low normal LV systolic function, LVEF 50-55%. Abnormal septal motion consistent with conduction abnormality/postoperative states. Normal RV size, mild RV dysfunction. Mild aortic valve sclerosis without stenosis. Mild to moderate AI , mild MR. Diastolic dysfunction. Normal estimated RA and PA pressures. No significant changes compared to 06/02/16 study. -Duonebs QIDR scheduled and q2h prn SOB/wheezing Oral candidiasis -Nystatin 5 mL PO QID x 7 days. Day #4 Leukocytosis--improving. Appears to be chronic. Pt takes chronic Prednisone 20 mg PO qd for anorexia CAD -Continue Plavix 75 mg PO qd and ASA 81 mg PO qd HTN--stable -Continue metoprolol tartrate 25 mg PO BID HLD -Continue atorvastatin 80 mg PO qd COPD -Continue Spiriva 2 puffs inh qd and Symbicort 2 puffs inh BID Hypothyroidism -Continue Synthroid 50 mcg PO qd DVT prophylaxis -Enoxaparin 40 mg SC q24h -AGNES [place] and SCDs Code Status -Level I, FULL RESUSCITATION STATUS (Ella Kurtz ., PA-C) I agree with PA assessment and plan and have seen and examined pt myself Pt state hoarseness that started this AM States improvement in sob VSS Labs reviewed Agree with continued IV lasix at this time Likely DC in next 24 hrs (Niko Saini D.OChin)
[2016-11-13] MEDS: DIGOXIN 0.125 MG TAB PO SCH (16:48)
[2016-11-13] MEDS: ATORVASTATIN 40 MG TAB PO SCH (21:03)
[2016-11-13] MEDS: DOCUSATE SODIUM 100 MG CAP PO SCH (21:03)
[2016-11-13] MEDS: PANTOprazole SOD 40 MG TAB PO SCH (21:03)
[2016-11-14] VITALS (10 sets, daily range): BP systolic 127–138; BP diastolic 63–79; PULSE 63–110; TEMP 36.4–37.3; O2SAT 93–99
[2016-11-14] MEDS: LEVOTHYROXINE 50 MCG TAB PO SCH (06:43)
[2016-11-14] MEDS: ALBUT/IPRATROP 3MG/0.5MG NEB 3 ML VIAL INH SCH ×4 (07:25→19:23)
[2016-11-14] MEDS: FUROSEMIDE INJ 40 MG in SYRINGE 0 ML IV SCH ×2 (08:01→20:42)
[2016-11-14] MEDS: CLOPIDOGREL BISULFATE 75 MG TAB PO SCH (08:02)
[2016-11-14] MEDS: SPIRONOLACTONE 25 MG TAB PO SCH (08:02)
[2016-11-14] MEDS: ASPIRIN 81 MG ECTAB PO SCH (08:02)
[2016-11-14] MEDS: NYSTATIN SUSP 500,000 U/5 ML UDC PO SCH ×4 (08:03→20:43)
[2016-11-14] MEDS: RANITIDINE HCL 150 MG TAB PO SCH (08:03)
[2016-11-14] MEDS: ALLOPURINOL 100 MG TAB PO SCH (08:03)
[2016-11-14] MEDS: METOPROLOL TARTRATE 25 MG TAB PO SCH ×2 (08:03→20:43)
[2016-11-14] MEDS: DOCUSATE SODIUM 100 MG CAP PO SCH ×2 (08:03→20:44)
[2016-11-14] MEDS: BUDESONIDE/FORMOTEROL FUMARATE 160/4.5 60 PUFFS/INHALER INH SCH ×2 (08:04→20:42)
[2016-11-14] MEDS: COUGH DROP (SUGAR FREE) LOZ 24 LOZ/1 BOX PO SCH ×3 (08:04→20:44)
[2016-11-14] MEDS: TIOTROPIUM BROMIDE 5 PUFF/90 MCG INH INH SCH (08:04)
[2016-11-14] MEDS: ENOXAPARIN 40 MG/0.4 ML SYR SC SCH (11:00)
--- NOTE | 2016-11-14 11:40 | Progress Note ---
Subjective Date of Service: Nov 14, 2016. Subjective Pt evaluation today including: conversation w/ patient, physical exam, chart review, lab review, review of studies, review of inpatient medication list Problem List Medical Problems: (1) Ambulatory dysfunction Status: Acute (2) Congestive heart failure Status: Acute (3) Cough Status: Acute (4) Dehydration Status: Acute (5) Dyspnea Status: Acute (6) Hypoxia Status: Acute (7) Hypoxia Status: Acute (8) Influenza Status: Acute (9) Influenza Status: Acute (10) Influenza A Status: Acute (11) Intractable pain Status: Acute (12) Leukocytosis Status: Acute (13) Multiple falls Status: Acute (14) Neutropenic fever Status: Acute (15) PNA (pneumonia) Status: Acute (16) Pneumonia Status: Acute (17) Pneumonia Status: Acute (18) Productive cough Status: Acute (19) Rigors Status: Acute (20) Sepsis Status: Acute (21) Sepsis Status: Acute (22) Severe sepsis Status: Acute (23) Upper respiratory infection Status: Acute (24) Vomiting due to chemotherapy Status: Acute (25) Weakness Status: Acute Review of Systems Constitutional: No chills, No fever Respiratory: No cough, No dyspnea on exertion, No shortness of breath, No sputum, No wheezing Cardiac: No chest pain, No orthopnea Abdomen: No constipation, No diarrhea, No nausea, No pain, No vomiting Musculoskeletal: No joint pain, No muscle pain Male : No dysuria, No urinary frequency Objective Vital Signs Date Time Temp Pulse Resp B/P Pulse Ox O2 Delivery O2 Flow Rate FiO2 11/14/16 10:59 110 18 93 Nasal Cannula 2.0 11/14/16 07:27 73 18 93 Nasal Cannula 2.0 11/14/16 07:00 36.5 75 16 127/73 96 11/14/16 04:00 Room Air 11/14/16 02:45 36.5 63 20 134/79 98 Nasal Cannula 2.0 11/13/16 23:59 Room Air 11/13/16 23:30 36.4 85 20 134/71 96 Nasal Cannula 2.0 11/13/16 20:00 Room Air 11/13/16 19:30 76 18 94 Nasal Cannula 2.0 11/13/16 18:49 36.9 57 18 116/67 99 Nasal Cannula 3.0 11/13/16 16:48 67 2/24/17 16:15 75 18 93 Nasal Cannula 2.0 11/13/16 16:00 Nasal Cannula 2.0 11/13/16 15:29 36.7 75 18 120/72 100 Nasal Cannula 3.0 11/13/16 12:00 Nasal Cannula 2.0 Physical Exam General Appearance: WD/WN, no apparent distress Neck: supple, no adenopathy Respiratory/Chest: chest non-tender, lungs clear, normal breath sounds Cardiovascular: regular rate, rhythm, no edema, no gallop Abdomen: normal bowel sounds, non tender, soft Neurologic/Psychiatric: alert, oriented x 3 Assessment and Plan 81 y/o male with a history of lung adenocarcinoma, CHF, CAD with h/o CABG and cardiac stents, bi-ventricular ICD, HTN, HLD, COPD, and hypothyroidism who presented to the ED on 11/10 with worsening shortness of breath. Pt also c/o worsening lower extremity edema, orthopnea, PND, and weakness and fatigue. CXR shows congestive failure with bilateral pleural effusions R>L. EKG shows no ischemic changes. Cardiac enzymes negative, BNP elevated at 3475. Acute on chronic diastolic CHF -Admit to telemetry. Full admission status -Continue Lasix 40 mg IV BID -Daily weights -Strict I/Os -Repeat EKG 11/11 64 bpm, ventricular paced rhythm -Continue digoxin 0.125 mg PO qd, digoxin level therapeutic -Continue spironolactone 25 mg PO qd -Pt had echo done on 09/21/16: Normal LV size and wall thickness. Low normal LV systolic function, LVEF 50-55%. Abnormal septal motion consistent with conduction abnormality/postoperative states. Normal RV size, mild RV dysfunction. Mild aortic valve sclerosis without stenosis. Mild to moderate AI , mild MR. Diastolic dysfunction. Normal estimated RA and PA pressures. No significant changes compared to 06/02/16 study. -Duonebs QIDR scheduled and q2h prn SOB/wheezing Oral candidiasis -Nystatin 5 mL PO QID x 7 days. Day #5 Leukocytosis--improving. Appears to be chronic. Pt takes chronic Prednisone 20 mg PO qd for anorexia CAD -Continue Plavix 75 mg PO qd and ASA 81 mg PO qd HTN--stable -Continue metoprolol tartrate 25 mg PO BID HLD -Continue atorvastatin 80 mg PO qd COPD -Continue Spiriva 2 puffs inh qd and Symbicort 2 puffs inh BID Hypothyroidism -Continue Synthroid 50 mcg PO qd DVT prophylaxis -Enoxaparin 40 mg SC q24h -AGNES [place] Code Status -Level I, FULL RESUSCITATION STATUS
[2016-11-14] MEDS: DIGOXIN 0.125 MG TAB PO SCH (16:11)
[2016-11-14] MEDS: PANTOprazole SOD 40 MG TAB PO SCH (20:43)
[2016-11-14] MEDS: ATORVASTATIN 40 MG TAB PO SCH (20:44)
[2016-11-14] MEDS ORDERED: NURSING VERBAL MED ORDER ONE (22:00)
[2016-11-14] MEDS: ZOLPIDEM TARTRATE 5 MG TAB PO PRN ×2 (22:27→23:38)
[2016-11-15] VITALS (11 sets, daily range): BP systolic 124–135; BP diastolic 67–75; PULSE 62–91; TEMP 36.3–36.5; O2SAT 91–97
[2016-11-15 05:29] LABS: HEMATOCRIT 36.9 % (42-52); MEAN CELL VOLUME 93.4 fL (80-100); MEAN CORPUSCULAR HEMOGLOBIN 30.4 pg (25-34); MEAN CORPUSCULAR HGB CONC 32.5 g/dl (32-36); MEAN PLATELET VOLUME 9.3 fL (7.4-10.4); PLATELET COUNT 252 K/uL (130-400); RED BLOOD COUNT 3.95 M/uL (4.7-6.1); WHITE BLOOD COUNT 11.28 K/uL (4.8-10.8)
[2016-11-15] MEDS: LEVOTHYROXINE 50 MCG TAB PO SCH (06:02)
[2016-11-15] MEDS: ALBUT/IPRATROP 3MG/0.5MG NEB 3 ML VIAL INH SCH ×4 (07:28→20:44)
[2016-11-15] MEDS: ASPIRIN 81 MG ECTAB PO SCH (08:10)
[2016-11-15] MEDS: FUROSEMIDE INJ 40 MG in SYRINGE 0 ML IV SCH (08:10)
[2016-11-15] MEDS: ALLOPURINOL 100 MG TAB PO SCH (08:10)
[2016-11-15] MEDS: DOCUSATE SODIUM 100 MG CAP PO SCH ×2 (08:10→20:22)
[2016-11-15] MEDS: CLOPIDOGREL BISULFATE 75 MG TAB PO SCH (08:10)
[2016-11-15] MEDS: RANITIDINE HCL 150 MG TAB PO SCH (08:10)
[2016-11-15] MEDS: BUDESONIDE/FORMOTEROL FUMARATE 160/4.5 60 PUFFS/INHALER INH SCH ×2 (08:11→20:21)
[2016-11-15] MEDS: TIOTROPIUM BROMIDE 5 PUFF/90 MCG INH INH SCH (08:11)
[2016-11-15] MEDS: COUGH DROP (SUGAR FREE) LOZ 24 LOZ/1 BOX PO SCH ×3 (08:11→20:23)
[2016-11-15] MEDS: METOPROLOL TARTRATE 25 MG TAB PO SCH ×2 (08:11→20:22)
[2016-11-15] MEDS: SPIRONOLACTONE 25 MG TAB PO SCH (08:11)
[2016-11-15] MEDS: ENOXAPARIN 40 MG/0.4 ML SYR SC SCH (08:12)
[2016-11-15] MEDS: NYSTATIN SUSP 500,000 U/5 ML UDC PO SCH ×4 (08:12→20:22)
[2016-11-15] MEDS ORDERED: NURSING VERBAL MED ORDER ONE (10:00)
--- NOTE | 2016-11-15 12:46 | Progress Note ---
Subjective Date of Service: Nov 15, 2016. Subjective Pt evaluation today including: conversation w/ patient, physical exam, chart review, lab review, review of studies, review of inpatient medication list Pt resting comfortably in bed No signs of distress noted Pt reports feeling about the same Wearing O2 2L during daytime Problem List Medical Problems: (1) Ambulatory dysfunction Status: Acute (2) Congestive heart failure Status: Acute (3) Cough Status: Acute (4) Dehydration Status: Acute (5) Dyspnea Status: Acute (6) Hypoxia Status: Acute (7) Hypoxia Status: Acute (8) Influenza Status: Acute (9) Influenza Status: Acute (10) Influenza A Status: Acute (11) Intractable pain Status: Acute (12) Leukocytosis Status: Acute (13) Multiple falls Status: Acute (14) Neutropenic fever Status: Acute (15) PNA (pneumonia) Status: Acute (16) Pneumonia Status: Acute (17) Pneumonia Status: Acute (18) Productive cough Status: Acute (19) Rigors Status: Acute (20) Sepsis Status: Acute (21) Sepsis Status: Acute (22) Severe sepsis Status: Acute (23) Upper respiratory infection Status: Acute (24) Vomiting due to chemotherapy Status: Acute (25) Weakness Status: Acute Review of Systems Constitutional: No chills, No fever ENT: + problem reported (hoarseness), No sore throat, No trouble swallowing Respiratory: No cough, No dyspnea on exertion, No shortness of breath, No sputum, No wheezing Cardiac: No chest pain, No orthopnea Abdomen: No constipation, No diarrhea, No nausea, No pain, No vomiting Musculoskeletal: No joint pain, No muscle pain Male : No dysuria, No urinary frequency Objective Vital Signs Date Time Temp Pulse Resp B/P Pulse Ox O2 Delivery O2 Flow Rate FiO2 11/15/16 12:15 36.4 77 18 127/75 94 Room Air 11/15/16 11:37 76 18 92 Nasal Cannula 2.0 11/15/16 08:05 Nasal Cannula 2.0 11/15/16 07:53 36.5 82 16 135/71 94 Nasal Cannula 2.0 11/15/16 07:28 80 18 94 Nasal Cannula 2.0 11/15/16 04:02 Nasal Cannula 2.0 11/15/16 03:49 70 20 124/70 93 Nasal Cannula 2.0 11/15/16 03:39 36.5 70 20 124/74 92 Nasal Cannula 2.0 11/15/16 00:02 Nasal Cannula 2.0 11/14/16 23:35 36.4 86 20 131/73 96 Nasal Cannula 2.0 11/14/16 20:04 Nasal Cannula 2.0 11/14/16 19:26 36.5 83 20 129/70 99 Nasal Cannula 2.0 11/14/16 19:24 83 18 97 Nasal Cannula 2.0 11/14/16 16:11 83 11/14/16 15:57 Nasal Cannula 2.0 11/14/16 15:29 77 18 98 Nasal Cannula 3.0 11/14/16 14:58 37.3 68 18 133/78 95 Nasal Cannula 3.0 Physical Exam General Appearance: WD/WN, no apparent distress Neck: supple, no adenopathy Respiratory/Chest: + decreased breath sounds, + crackles Cardiovascular: no gallop, no JVD Abdomen: non tender, soft Neurologic/Psychiatric: alert, oriented x 3 Laboratory Results Last 24 Hours Test 11/15/16 05:17 White Blood Count 11.28 K/uL Red Blood Count 3.95 M/uL Hemoglobin 12.0 g/dL Hematocrit 36.9 % Mean Corpuscular Volume 93.4 fL Mean Corpuscular Hemoglobin 30.4 pg Mean Corpuscular Hemoglobin Concent 32.5 g/dl RDW Standard Deviation 56.7 fL RDW Coefficient of Variation 16.5 % Platelet Count 252 K/uL Mean Platelet Volume 9.3 fL Assessment and Plan 81 y/o male with a history of lung adenocarcinoma, CHF, CAD with h/o CABG and cardiac stents, bi-ventricular ICD, HTN, HLD, COPD, and hypothyroidism who presented to the ED on 11/10 with worsening shortness of breath. Pt also c/o worsening lower extremity edema, orthopnea, PND, and weakness and fatigue. CXR shows congestive failure with bilateral pleural effusions R>L. EKG shows no ischemic changes. Cardiac enzymes negative, BNP elevated at 3475. Acute on chronic diastolic CHF -Admit to telemetry -Was started on Lasix 40 mg IV BID then transitioned to lasix 40 mg PO BID on -Daily weights and strict I/O's -EKG 11/11 ventricular paced rhythm -Continue digoxin 0.125 mg PO qd, digoxin level therapeutic -Continue spironolactone 25 mg PO qd -Pt had echo done on 09/21/16: Normal LV size and wall thickness. Low normal LV systolic function, LVEF 50-55%. Abnormal septal motion consistent with conduction abnormality/postoperative states. Normal RV size, mild RV dysfunction. Mild aortic valve sclerosis without stenosis. Mild to moderate AI , mild MR. Diastolic dysfunction. Normal estimated RA and PA pressures. No significant changes compared to 06/02/16 study. -Duonebs QIDR scheduled and q2h prn SOB/wheezing -Awaiting PT/OT and 2 step (pt wear O2 at bedtime only), likely DC home in next 1-2 days Oral candidiasis -Nystatin 5 mL PO QID x 7 days. End date 11/16/16 Leukocytosis--improving. Appears to be chronic. Pt takes chronic Prednisone 20 mg PO qd for anorexia CAD -Continue Plavix 75 mg PO qd and ASA 81 mg PO qd HTN--stable -Continue metoprolol tartrate 25 mg PO BID HLD -Continue atorvastatin 80 mg PO qd COPD -Continue Spiriva 2 puffs inh qd and Symbicort 2 puffs inh BID Hypothyroidism -Continue Synthroid 50 mcg PO qd DVT prophylaxis -Enoxaparin 40 mg SC q24h -AGNES [place] and [place] Code Status -Level I, FULL RESUSCITATION STATUS
--- NOTE | 2016-11-15 15:11 | DIAGNOSTIC IMAGING REPORT ---
CHEST ONE VIEW PORTABLE CLINICAL HISTORY: Shortness of breath. Congestive heart failure. Lung cancer. COMPARISON STUDY: Chest radiograph November 10, 2016. FINDINGS: A right subclavian [id number], median sternotomy wires and a left subclavian pacer/AICD are in place. A right suprahilar opacity persists. Left upper lung airspace opacity persists. Diffuse interstitial thickening and bilateral airspace opacities have progressed since exam of November 10, 2016. There are small bilateral pleural effusion. There is no pneumothorax. IMPRESSION: 1. Progression of bilateral airspace opacities and interstitial thickening. The findings could reflect congestive heart failure or bilateral pneumonia. 2. Suspected small bilateral pleural effusions. 3. Diminished lung volumes. Electronically signed by: Ezekiel Metcalf M.D. 11/15/2016 3:10 PM Dictated Date/Time: 11/15/2016 3:08 PM
[2016-11-15] MEDS: FUROSEMIDE 40 MG TAB PO SCH (17:11)
[2016-11-15] MEDS: DIGOXIN 0.125 MG TAB PO SCH (17:11)
[2016-11-15] MEDS: POLYETHYLENE (MIRALAX) 17 GM PACK PO PRN (20:20)
[2016-11-15] MEDS: ATORVASTATIN 40 MG TAB PO SCH (20:21)
[2016-11-15] MEDS: PANTOprazole SOD 40 MG TAB PO SCH (20:22)
[2016-11-16] VITALS (10 sets, daily range): BP systolic 113–133; BP diastolic 65–75; PULSE 66–90; TEMP 36.4–36.9; O2SAT 63–100
[2016-11-16] MEDS: LEVOTHYROXINE 50 MCG TAB PO SCH (06:20)
[2016-11-16 07:02] LABS: CREATININE 0.48 mg/dl (0.60-1.40)
[2016-11-16] MEDS: ALBUT/IPRATROP 3MG/0.5MG NEB 3 ML VIAL INH SCH ×4 (07:39→19:57)
[2016-11-16] MEDS: BUDESONIDE/FORMOTEROL FUMARATE 160/4.5 60 PUFFS/INHALER INH SCH ×2 (08:10→21:13)
[2016-11-16] MEDS: SPIRONOLACTONE 25 MG TAB PO SCH (08:10)
[2016-11-16] MEDS: FUROSEMIDE 40 MG TAB PO SCH ×2 (08:11→16:12)
[2016-11-16] MEDS: METOPROLOL TARTRATE 25 MG TAB PO SCH ×2 (08:11→21:14)
[2016-11-16] MEDS: RANITIDINE HCL 150 MG TAB PO SCH (08:11)
[2016-11-16] MEDS: ALLOPURINOL 100 MG TAB PO SCH (08:11)
[2016-11-16] MEDS: ASPIRIN 81 MG ECTAB PO SCH (08:11)
[2016-11-16] MEDS: DOCUSATE SODIUM 100 MG CAP PO SCH ×2 (08:11→21:14)
[2016-11-16] MEDS: COUGH DROP (SUGAR FREE) LOZ 24 LOZ/1 BOX PO SCH ×3 (08:12→21:16)
[2016-11-16] MEDS: NYSTATIN SUSP 500,000 U/5 ML UDC PO SCH ×4 (08:12→21:13)
[2016-11-16] MEDS: CLOPIDOGREL BISULFATE 75 MG TAB PO SCH (08:12)
[2016-11-16] MEDS: TIOTROPIUM BROMIDE 5 PUFF/90 MCG INH INH SCH (08:29)
[2016-11-16] MEDS: POLYETHYLENE (MIRALAX) 17 GM PACK PO PRN (08:30)
[2016-11-16 10:29] LABS: CALCIUM 7.8 mg/dl (8.5-10.1); CREATININE 0.81 mg/dl (0.60-1.40); MAGNESIUM 2.5 mg/dl (1.8-2.4); POTASSIUM 3.6 mmol/L (3.5-5.1)
[2016-11-16] MEDS ORDERED: OPTIRAY 320 IV PRN (11:45)
[2016-11-16] MEDS ORDERED: BISACODYL 10 MG SUPP PR PRN (12:30)
--- NOTE | 2016-11-16 12:47 | Hospitalist Progress Note ---
Hospitalist Progress Note Date of Service Nov 16, 2016. (Palmira Burgos PA-C) Subjective Pt evaluation today including: conversation w/ patient, physical exam, chart review, lab review, review of studies, review of inpatient medication list Patient reports feeling well this morning. Does note some mild shortness of breath with exertion. Denies any cough. No heart palpitations, chest pain or chest pressure. No fever or chills. Does note that he has not had a bowel movement in 3 days. Denies any abdominal pain or nausea. Additional Comments: 6 system review negative. Please see pertinent positives in the history of present illness section. (Palmira Burgos PA-C) Objective Vital Signs Date Time Temp Pulse Resp B/P Pulse Ox O2 Delivery O2 Flow Rate FiO2 11/16/16 11:54 36.8 22 116/67 63 Nasal Cannula 2.0 11/16/16 11:39 75 16 94 Nasal Cannula 1.0 11/16/16 08:05 36.8 68 16 133/75 95 Room Air 11/16/16 08:00 Nasal Cannula 2.0 11/16/16 07:39 66 16 94 Nasal Cannula 2.0 11/16/16 04:03 Nasal Cannula 2.0 11/16/16 03:57 36.4 67 20 128/67 94 Nasal Cannula 2.0 11/16/16 00:02 Nasal Cannula 2.0 11/15/16 23:32 36.3 73 21 124/67 97 Nasal Cannula 2.0 11/15/16 20:44 91 18 91 Nasal Cannula 2.0 11/15/16 20:04 Nasal Cannula 2.0 11/15/16 19:16 36.4 62 16 134/73 94 Nasal Cannula 2.0 11/15/16 17:11 76 11/15/16 16:00 Nasal Cannula 2.0 11/15/16 15:32 36.4 80 18 126/69 95 Nasal Cannula 2.0 11/15/16 14:50 80 18 94 Nasal Cannula 2.0 (Palmira Burgos PA-C) Physical Exam General Appearance: + mild distress (mild respiratory distress) Eyes: EOMI Neck: no JVD Respiratory/Chest: lungs clear Cardiovascular: regular rate, rhythm Abdomen: normal bowel sounds, non tender, soft Extremities: + pertinent finding (trace pitting edema is in the lower extremities bilaterally. No erythema, tenderness or warmth appreciated.) Neurologic/Psychiatric: alert (alert and answering questions appropriately.) Skin: warm/dry, + pertinent finding (significant ecchymosis noted on the arms.) (Palmira Burgos PA-C) Laboratory Results 11/16/16 09:20 Test 11/16/16 09:20 Anion Gap 10.0 mmol/L (3-11) Est Creatinine Clear Calc Drug Dose 56.6 ml/min Estimated GFR () 95.9 Estimated GFR (Non- 82.8 BUN/Creatinine Ratio 20.0 (10-20) Calcium Level 7.8 mg/dl (8.5-10.1) Magnesium Level 2.5 mg/dl (1.8-2.4) Last 24 Hours Test 11/16/16 06:00 11/16/16 09:20 Creatinine 0.48 mg/dl 0.81 mg/dl Est Creatinine Clear Calc Drug Dose 95.5 ml/min 56.6 ml/min Estimated GFR () 118.9 95.9 Estimated GFR (Non- 102.6 82.8 Sodium Level 135 mmol/L Potassium Level 3.6 mmol/L Chloride Level 90 mmol/L Carbon Dioxide Level 35 mmol/L Anion Gap 10.0 mmol/L Blood Urea Nitrogen 16 mg/dl BUN/Creatinine Ratio 20.0 Random Glucose 156 mg/dl Calcium Level 7.8 mg/dl Magnesium Level 2.5 mg/dl (Palmira Burgos, LUIS-C) Diagnostic Results ECHO from 09/21/16: Normal LV size and wall thickness. Low normal LV systolic function, LVEF 50-55%. Abnormal septal motion consistent with conduction abnormality/postoperative states. Normal RV size, mild RV dysfunction. Mild aortic valve sclerosis without stenosis. Mild to moderate AI, mild MR. Diastolic dysfunction. Normal estimated RA and PA pressures. No significant changes compared to 06/02/16 study. (Palmira Burgos, LUIS-C) Assessment and Plan 81 y/o male with a history of lung adenocarcinoma, CHF, CAD COPD who presented to the ED on 11/10 with worsening shortness of breath. Acute on chronic respiratory failure. CXR shows congestive failure with bilateral pleural effusions R>L. EKG shows no ischemic changes. Cardiac enzymes negative, BNP elevated at 3475. Acute on chronic diastolic CHF-CXR from yesterday appears worse than previous, but pt feels symptomatically better -CT chest today -Was started on Lasix 40 mg IV BID then transitioned to lasix 40 mg PO BID on -Continue digoxin 0.125 mg PO qd, -Continue spironolactone 25 mg PO qd -Repeat 2 step today. Will likely need O2 at all times Hx Lung AdenoCA-? progression on CXR. Also reported weight loss -CT chest to eval for progression -pending results-will need discussion with pt/family regarding code status and further treatment ?Constipation-pt reportedly had BM by nurse last night -continue Docusate 100 mg BID -dulcolax supp prn Oral candidiasis -Nystatin 5 mL PO QID x 7 days. D/C today Leukocytosis-secondary to steroids. No fever, cough to indicate infection CAD-no anginal sx -Continue Plavix 75 mg PO qd and ASA 81 mg PO qd HTN -Continue metoprolol tartrate 25 mg PO BID HLD -Continue atorvastatin 80 mg PO qd COPD -Duonebs QIDR scheduled and q2h prn SOB/wheezing -Continue Spiriva 2 puffs inh qd and Symbicort 2 puffs inh BID -repeat 2 step Hypothyroidism -Continue Synthroid 50 mcg PO qd DVT prophylaxis -Enoxaparin 40 mg SC q24h -AGNES [place] and SCDs Code Status -Level I, FULL RESUSCITATION STATUS Family -Son Phil [phone] (Palmira Burgos, PANikitaC) Attending Attestation: Pt seen/examined, chart reviewed, and care plan d/w LUIS Burgos. I agree w/ the leon components of her documentation. Pt also told me today that he feels better; however, has NO appetite (ongoing issue for months) and has lost 40-45 pounds over the last few months. CT chest obtained today due to abnormal cxr, his cancer history, and constitutional symptoms. CT chest with marked increase in metastatic lung ca. VSS gen - thin neck - no JVD heart - RRR lungs - decreased BS bases, worse on right abd - soft labs - BMP stable A/P: 1. acute/chronic diastolic CHF - improved clinically. 2. known stage 4 lung ca - radiographically very significant spread. 3. failure to thrive. 4. insomnia. 5. severe anorexia with chronic prednisone use for such. Ms. Burgos spoke with patient initially about CT scan results. Code status addressed - patient now DNR. I then had a discussion with the patient and his son about the CT results. Pt/son agreeable to palliative care consult. Try remeron 7.5mg at HS for sleep/appetite/depression. in light of failure to thrive and markedly progressive stage 4 lung ca hospice would be best option. Maddie WESTBROOK MD (Yonathan Westbrook MD)
--- NOTE | 2016-11-16 13:22 | DIAGNOSTIC IMAGING REPORT ---
CT OF THE CHEST WITH IV CONTRAST CLINICAL HISTORY: Lung carcinoma. Hypoxia. COMPARISON STUDY: 06/01/2016 TECHNIQUE: Following the IV administration of 93 mL of Optiray-320, CT of the thorax was performed from the thoracic inlet to the lung bases. Images are reviewed in the axial, sagittal, and coronal planes. IV contrast was administered without complication. CT DOSE: 341.12 mGy.cm FINDINGS: Thyroid: Imaged portions of the thyroid gland are normal in appearance. Thoracic aorta: The thoracic aorta is normal in course and caliber, noting standard 3-vessel arch anatomy. No aneurysm or dissection is seen. Pulmonary vasculature: The pulmonary trunk is normal in caliber. There are no central filling defects identified to suggest pulmonary embolus. Note that this examination was not protocoled for the evaluation of pulmonary emboli. HEART: The heart is enlarged. There are coronary artery calcifications. Lungs and pleural spaces: There are in numerable confluent bilateral point nodules, fetus highly suspicious for metastatic disease given the history of a primary carcinoma. There is a moderate right pleural effusion and small left pleural effusion. There is mild septal thickening. Mediastinum: There is a 31 mm simple clavicular mass suspicious for neoplasm. There is a right paratracheal lymph node the upper limits of normal in size Demetrice: There is right hilar lymphadenopathy. Axilla: Clear. Upper abdomen: The liver has a nodular contour. No adrenal masses are visualized. Skeletal structures: There is left-sided T12 sclerosis, likely on a degenerative basis IMPRESSION: 1. Innumerable confluent bilateral pulmonary nodules, viewed as highly suspicious for metastatic disease 2. 31 mm left supraclavicular mass, suspicious for metastatic neoplasm 3. Moderate right pleural effusion and small left pleural effusion 4. Suspected hepatic cirrhosis Electronically signed by: Milton Pond M.D. 11/16/2016 1:21 PM Dictated Date/Time: 11/16/2016 1:10 PM
[2016-11-16] MEDS: DIGOXIN 0.125 MG TAB PO SCH (16:12)
[2016-11-16] MEDS ORDERED: MIRTAZAPINE TAB 15 MG TAB PO SCH (21:00)
[2016-11-16] MEDS: PANTOprazole SOD 40 MG TAB PO SCH (21:14)
[2016-11-16] MEDS: ATORVASTATIN 40 MG TAB PO SCH (21:14)
[2016-11-17] VITALS (7 sets, daily range): BP systolic 121–130; BP diastolic 62–68; PULSE 70–80; TEMP 36.5–36.8; O2SAT 91–97
[2016-11-17] MEDS: LEVOTHYROXINE 50 MCG TAB PO SCH (06:00)
[2016-11-17 06:21] LABS: BASO % 0.1 %; BASO ABS # 0.01 K/uL (0-0.2); COMPLETE YES; EOS % 0.8 %; HEMATOCRIT 37.8 % (42-52); IG% 0.4 %; LYMPH % 6.3 %; LYMPH ABS # 0.79 K/uL (1.2-3.4); MEAN CORPUSCULAR HEMOGLOBIN 30.3 pg (25-34); MEAN CORPUSCULAR HGB CONC 32.3 g/dl (32-36); MEAN PLATELET VOLUME 9.3 fL (7.4-10.4); MONO % 9.4 %; PLATELET COUNT 281 K/uL (130-400); RED BLOOD COUNT 4.02 M/uL (4.7-6.1); WHITE BLOOD COUNT 12.62 K/uL (4.8-10.8)
[2016-11-17 07:10] LABS: BUN/CREATININE RATIO 25.6 (10-20); CALCIUM 7.6 mg/dl (8.5-10.1); CREATININE 0.55 mg/dl (0.60-1.40); MAGNESIUM 2.6 mg/dl (1.8-2.4)
[2016-11-17] MEDS: ALBUT/IPRATROP 3MG/0.5MG NEB 3 ML VIAL INH SCH ×3 (07:30→16:00)
[2016-11-17] MEDS: BUDESONIDE/FORMOTEROL FUMARATE 160/4.5 60 PUFFS/INHALER INH SCH (07:37)
[2016-11-17] MEDS: TIOTROPIUM BROMIDE 5 PUFF/90 MCG INH INH SCH (07:38)
[2016-11-17] MEDS: FUROSEMIDE 40 MG TAB PO SCH (07:38)
[2016-11-17] MEDS: RANITIDINE HCL 150 MG TAB PO SCH (07:39)
[2016-11-17] MEDS: ALLOPURINOL 100 MG TAB PO SCH (07:39)
[2016-11-17] MEDS: ASPIRIN 81 MG ECTAB PO SCH (07:39)
[2016-11-17] MEDS: SPIRONOLACTONE 25 MG TAB PO SCH (07:39)
[2016-11-17] MEDS: DOCUSATE SODIUM 100 MG CAP PO SCH (07:39)
[2016-11-17] MEDS: CLOPIDOGREL BISULFATE 75 MG TAB PO SCH (07:39)
[2016-11-17] MEDS: COUGH DROP (SUGAR FREE) LOZ 24 LOZ/1 BOX PO SCH (07:40)
[2016-11-17] MEDS: METOPROLOL TARTRATE 25 MG TAB PO SCH (07:40)
--- NOTE | 2016-11-17 10:30 | Palliative Care Consultation ---
Consultation Date of Consultation: Nov 17, 2016. Requesting Physician: Palmira Burgos PA-C Attending Physician: Dr. Saini Reason for Consultation: Goals of care History of Present Illness This 81 year old male patient presented to the ED six days ago with complaints of worsening SOB and increased lower extremity edema. His lasix dose was apparently decreased back in August, but he has not had any issues since that time until now. On arrival, chest x-ray showed evidence of CHF and right hilar enlargement- possible underlying mass/adenopathy must be considered. He was admitted and treated for CHF. Had a CT of the chest done which showed "IMPRESSION: 1. Innumerable confluent bilateral pulmonary nodules, viewed as highly suspicious for metastatic disease 2. 31 mm left supraclavicular mass, suspicious for metastatic neoplasm 3. Moderate right pleural effusion and small left pleural effusion 4. Suspected hepatic cirrhosis." Apparently this patient does have a history of lung cancer, s/p chemo and radiation treatment. Patient does not have much knowledge about his cancer diagnosis. According to record from August 2016, the patient has adenocarcinoma of bilateral lungs and was in the hospital with neutropenic fever in July 2016. It was decided at that time that patient would not receive any further chemotherapy. Also has a history of CHF, COPD, CAD s/p stents and CABG. His functional status is good at home where he lives alone. But recently he has been getting SOB and has had some recent weight loss. Palliative care was consulted to assist in establishing goals of care. I met with the patient in room 240-2. He is awake, alert and oriented, sitting on side of bed. He was in no distress and denies any complaints of pain. States he does get quite short of breath with exertion. When asked what his current understanding of his medical conditions is, he stated, "I don't know. I don't really understand it all." We discussed his medical conditions including CHF, COPD, CAD, and lung cancer with now metastatic disease. He verbalized understanding. We discussed goals of care. He states that his goal is to be at home, but he is not quite ready to say that he would not come back to the hospital if he were sick. He wants some therapy at home in order to hopefully gain some strength back. He would certainly be willing to transition to hospice once he felt that he was ready. His goal is to have a good quality of life. We discussed a POLST form in detail, we will fill one out when his son Phil Spence arrives this afternoon. The patient did state that if he were in an end-stage medical condition, he would not want any life-prolonging treatment such as CPR, ventilator, or feeding tube. I spoke with the patient's son, Phil, on the phone with patient's permission. We also discussed goals of care and he agreed that he would like the patient to have home health for therapy at home and would eventually be okay with transitioning to hospice. Phil will be here at 1230 and we will discuss and fill out POLST form. Past Medical/Surgical History Medical History: CAD s/p stenting and CABG COPD with home oxygen use CHF EF 40-45% HTN HLD Hypothyroidism Adenocarcinoma of bilateral lungs Surgical History: Biventricular ICD CABG Social History Smoking Status: Former Smoker History of Alcohol Use: No Drug Use: none Marital Status: Housing Status: lives alone Occupation Status: retired Review of Systems Constitutional: + weakness, No chills, No fever ENT: + problem reported (thrush) Respiratory: + dyspnea on exertion, + shortness of breath, No dyspnea at rest Cardiac: + edema (improved), No chest pain Abdomen: No nausea, No pain, No vomiting Male : No problem reported Psychiatric: No anxiety Allergies Coded Allergies: Lisinopril (Verified Allergy, Unknown, Unknown, 11/10/16) Medications Current Inpatient Medications Medications (Trade) Dose Ordered Sig/Sheila Route Start Time Stop Time Status Last Admin Dose Admin Acetaminophen (Tylenol Tab) 650 mg Q4H PRN PO 11/10/16 08:30 12/10/16 08:29 Al Hydrox/Mg Hydrox/Simethicone (Maalox Max Susp) 15 ml Q4H PRN PO 11/10/16 08:30 12/10/16 08:29 Magnesium Hydroxide (Milk Of Magnesia Susp) 30 ml Q12H PRN PO 11/10/16 08:30 12/10/16 08:29 11/14/16 13:47 30 ML Ondansetron HCl (Zofran Inj) 4 mg Q6H PRN IV 11/10/16 08:30 12/10/16 08:29 Polyethylene (Miralax Powder Packet) 17 gm DAILY PRN PO 11/10/16 08:30 12/10/16 08:29 11/16/16 08:30 17 GM Allopurinol (Zyloprim Tab) 100 mg QAM PO 11/10/16 09:00 12/10/16 08:59 11/17/16 07:39 100 MG Aspirin (Ecotrin Tab) 81 mg DAILY PO 11/10/16 09:00 12/10/16 08:59 11/17/16 07:39 81 MG Atorvastatin Calcium (Lipitor Tab) 80 mg HS PO 11/10/16 21:00 12/10/16 20:59 11/16/16 21:14 80 MG Budesonide/ Formoterol Fumarate (Symbicort 160/ 4.5 Inh) 2 puffs BID INH 11/10/16 09:00 12/10/16 08:59 11/17/16 07:37 2 PUFFS Clopidogrel Bisulfate (plAVix TAB) 75 mg DAILY PO 11/10/16 09:00 12/10/16 08:59 11/17/16 07:39 75 MG Digoxin (Lanoxin Tab) 0.125 mg DAILY@1600 PO 11/10/16 16:00 12/10/16 15:59 11/16/16 16:12 0.125 MG Levothyroxine Sodium (Synthroid Tab) 50 mcg DAILYBB PO 11/10/16 11:00 12/10/16 10:59 11/17/16 06:00 50 MCG Metoprolol Tartrate (Lopressor Tab) 25 mg BID PO 11/10/16 09:00 12/10/16 08:59 11/17/16 07:40 25 MG Prednisone (PredniSONE TAB) 20 mg DAILY PO 11/10/16 09:00 12/10/16 08:59 11/17/16 07:39 20 MG Ranitidine HCl (zANTac TAB) 150 mg QAM PO 11/10/16 09:00 12/10/16 08:59 11/17/16 07:39 150 MG Spironolactone (Aldactone Tab) 25 mg QAM PO 11/10/16 09:00 12/10/16 08:59 11/17/16 07:39 25 MG Pantoprazole Sodium (Protonix Tab) 40 mg HS PO 11/10/16 21:00 12/10/16 20:59 11/16/16 21:14 40 MG Tiotropium Wyn[place] (Spiriva Handihaler Inhaler) 1 puff QAM INH 11/10/16 09:00 12/10/16 08:59 11/17/16 07:38 1 PUFF Miscellaneous (Iv Fluids Completed) 1 ea PRN PRN N/A 11/10/16 10:45 11/10/17 10:44 Albuterol/ Ipratropium (Duoneb) 3 ml QIDR INH 11/12/16 12:00 12/12/16 11:59 11/17/16 07:30 3 ML Menthol (Nice Augustin) 1 augustin TID PO 11/12/16 14:00 12/12/16 13:59 11/17/16 07:40 1 AUGUSTIN Docusate Sodium (coLACE CAP) 100 mg BID PO 11/13/16 21:00 12/13/16 20:59 11/17/16 07:39 100 MG Furosemide (Lasix Tab) 40 mg BID17 PO 11/15/16 17:00 12/15/16 16:59 11/17/16 07:38 40 MG Ioversol (Optiray 320) 100 ml UD PRN IV 11/16/16 11:45 11/20/16 11:44 Bisacodyl (Dulcolax Supp) 10 mg BID PRN DC 11/16/16 12:30 12/16/16 12:29 Mirtazapine (Remeron Tab) 7.5 mg HS PO 11/16/16 21:00 12/16/16 20:59 11/16/16 21:15 7.5 MG Physical Exam Date Time Temp Pulse Resp B/P Pulse Ox O2 Delivery O2 Flow Rate FiO2 11/17/16 08:36 36.5 72 18 130/67 95 11/17/16 07:42 72 16 95 Nasal Cannula 2.0 11/17/16 04:32 36.7 70 20 121/62 91 Nasal Cannula 2.0 11/17/16 04:02 Nasal Cannula 2.0 11/17/16 00:02 Nasal Cannula 2.0 11/16/16 23:59 36.9 68 20 113/65 94 Nasal Cannula 2.0 11/16/16 20:04 Nasal Cannula 2.0 11/16/16 19:11 36.4 90 18 127/74 97 Nasal Cannula 2.0 11/16/16 19:10 74 18 95 Nasal Cannula 2.0 11/16/16 16:12 75 11/16/16 16:00 Nasal Cannula 2.0 11/16/16 15:22 74 16 94 Nasal Cannula 2.0 11/16/16 15:21 36.4 67 20 133/75 100 Nasal Cannula 11/16/16 12:00 Nasal Cannula 2.0 11/16/16 11:54 36.8 22 116/67 63 Nasal Cannula 2.0 11/16/16 11:39 75 16 94 Nasal Cannula 1.0 General Appearance: no apparent distress, + pertinent finding (chronically ill- appearing) ENT: + pertinent finding (spider angiomas covering cheeks and nose) Neck: no JVD, trachea midline Respiratory: no respiratory distress, no accessory muscle use, + decreased breath sounds, + pertinent finding (2LNC) Cardiovascular: regular rate, rhythm, + pertinent finding (trace edema of bilateral lowere extremities) Abdomen: normal bowel sounds, non tender, soft Neurologic/Psychiatric: alert, normal mood/affect, oriented x 3, + pertinent finding (forgetful but oriented. ) Laboratory Results Last 24 Hours Test 11/17/16 06:05 White Blood Count 12.62 K/uL Red Blood Count 4.02 M/uL Hemoglobin 12.2 g/dL Hematocrit 37.8 % Mean Corpuscular Volume 94.0 fL Mean Corpuscular Hemoglobin 30.3 pg Mean Corpuscular Hemoglobin Concent 32.3 g/dl Platelet Count 281 K/uL Mean Platelet Volume 9.3 fL Neutrophils (%) (Auto) 83.0 % Lymphocytes (%) (Auto) 6.3 % Monocytes (%) (Auto) 9.4 % Eosinophils (%) (Auto) 0.8 % Basophils (%) (Auto) 0.1 % Neutrophils # (Auto) 10.48 K/uL Lymphocytes # (Auto) 0.79 K/uL Monocytes # (Auto) 1.19 K/uL Eosinophils # (Auto) 0.10 K/uL Basophils # (Auto) 0.01 K/uL RDW Standard Deviation 57.4 fL RDW Coefficient of Variation 16.8 % Immature Granulocyte % (Auto) 0.4 % Immature Granulocyte # (Auto) 0.05 K/uL Sodium Level 138 mmol/L Potassium Level 4.0 mmol/L Chloride Level 93 mmol/L Carbon Dioxide Level 39 mmol/L Anion Gap 6.0 mmol/L Blood Urea Nitrogen 14 mg/dl Creatinine 0.55 mg/dl Est Creatinine Clear Calc Drug Dose 83.3 ml/min Estimated GFR () 112.5 Estimated GFR (Non- 97.0 BUN/Creatinine Ratio 25.6 Random Glucose 88 mg/dl Calcium Level 7.6 mg/dl Magnesium Level 2.6 mg/dl Assessment & Plan Palliative Performance Scale: 60 % Problem list: Shortness of breath/Dyspnea on exertion Weakness Acute on chronic CHF- EF 40-45% COPD Adenocarcinoma of bilateral lungs CAD Thrush Goals of care (Z51.5) Palliative care plan: Discussed with Palmira Burgos PA-C, patient, and patient's son, Phil Spence -DNR/DNI per patient's wishes. -Home with home health for therapy. Will likely eventually transition to hospice. -Goal is to be home and be comfortable. Patient still feels he has a good quality of life at home. Will have family support between the son, daughter, and [id number]. -Will need to repeat 2-step to qualify for continuous home oxygen use. -POLST form to be completed this afternoon. Patient's chosen surrogate decision maker is his son, Phil Spence. -Is on lasix 40mg PO BID. CHF being managed by primary medical team. Was on 20mg PO lasix BID at home. Negative almost 2L since admission. Thank you kindly for this consult. Please contact me if there are any further palliative care needs.
[2016-11-17] MEDS ORDERED: RMR15 PO (11:12)
[2016-11-17] MEDS ORDERED: LSX40 PO (11:12)
--- NOTE | 2016-11-17 11:20 | Discharge Instructions ---
Discharge Instructions Admission Reason for Admission: Congestive Heart Failure (Palmira Burgos PA-C) Discharge Discharge Diagnosis / Problem: acute on chronic respiratory failure (Palmira Burgos PA-C) Discharge Goals Goal(s): Improve function (Palmira Burgos PA-C) Activity Recommendations Activity Limitations: as noted below Exercise/Sports Limitations: as tolerated . (Palmira Burgos PA-C) Instructions / Follow-Up Instructions / Follow-Up You has been treated in the hospital for difficulty breathing. This is likely due to multiple factors such as lung cancer in addition to fluid overload. A CT scan of your head and chest show that the cancer is progressing and has spread Your oxygen requirements have showed that you will need oxygen 2 L at all times , not just at night. The following additions/changes have been made to her medication list: -Lasix has been changed to 40 mg daily -New medication-Remeron 7.5 mg 1 tab before bed -PLEASE STOP ASPIRIN -PLEASE STOP PLAVIX -PLEASE STOP PREDNISONE -Start decadron 4 mg every 8 hrs--> this is to prevent swelling in the brain -AVOID OVER THE COUNTER NSAIDS SUCH IBUPROFEN, MOTRIN, ADVIL, ALEVE AND NAPROXEN It is recommended that you drink in nutritional supplement, such as boost with every meal Please follow up with your primary care physician NATHAN Please notify your primary care physician for the following symptoms: -Fever of 101F or greater -Persistent vomiting - Persistent diarrhea -Chest pain -Shortness of breath -Severe pain (Palmira Burgos PA-C) Current Hospital Diet Patient's current hospital diet: Low Sodium Diet (2gm Na), AHA Diet (Heart Healthy) (Palmira Burgos PA-C) Discharge Diet Recommended Diet: Low Sodium Diet (2gm Na) (Palmira Burgos PA-C) Procedures Procedures Performed: CT chest-1. Innumerable confluent bilateral pulmonary nodules, viewed as highly suspicious for metastatic disease 2. 31 mm left supraclavicular mass, suspicious for metastatic neoplasm 3. Moderate right pleural effusion and small left pleural effusion 4. Suspected hepatic cirrhosis (Palmira Burgos PA-C) Pending Studies Studies pending at discharge: no (Palmira Burgos PA-C) Medical Emergencies . Who to Call and When: Call 911 or go to the Emergency Room if: * If at any time you feel your situation is an emergency * You have tightness or pain in your chest that does not go away with rest or Nitroglycerin * You are very short of breath even with rest . (Palmira Burgos PA-C) Non-Emergent Contact Non-Emergency issues call your: Primary Care Provider . (Palmira Burgos PA-C) . "Provider Documentation" section prepared by Palmira Burgos. (Palmira Burgos PA-C) Attending Attestation: Pt seen/examined, and care plan d/w LUIS Burgos on day of discharge. I agree w/ her discharge instructions as outlined. Yonathan Westbrook MD (Yonathan Westbrook MD) VTE Core Measure Inpt VTE Proph given/why not?: Enoxaparin (Lovenox)SQ, T.E.D. Stockings, SCD's (Palmira Burgos PA-C)
--- NOTE | 2016-11-17 11:49 | Discharge Summary ---
Discharge Summary Date of Service Nov 17, 2016. (Palmira Burgos PA-C) Discharge Summary Admission Date: Nov 11, 2016 at 14:39 Discharge Date: Nov 17, 2016 Discharge Disposition: Home with services Principal Diagnosis: acute on chronic dCHF lung CA Problems/Secondary Diagnoses: CAD s/p pacemaker placement hypothyroidism HTN failure to thrive anorexia Immunizations: Have You Had Influenza Vaccine: No Influenza Vaccine Date: Jul 10, 2011 History of Tetanus Vaccine?: Unknown History of Pneumococcal: Unknown Pneumococcal Date: Mar 10, 2007 History of Hepatitis B Vaccine: Unknown Procedures: CT chest 1. Innumerable confluent bilateral pulmonary nodules, viewed as highly suspicious for metastatic disease 2. 31 mm left supraclavicular mass, suspicious for metastatic neoplasm 3. Moderate right pleural effusion and small left pleural effusion 4. Suspected hepatic cirrhosis Consultations: palliative care (Palmira Burgos PA-C) Problems/Secondary Diagnoses: metastatic brain lesions severe protein calorie malnutrition Procedures: CT head: Impression: 1. Multifocal nodules of increased density throughout the cerebellar, cerebral, as well as pontine regions. 2. Possible hemorrhagic metastatic foci, high density metastatic foci, or several less likely etiologies are possible. (Yonathan Westbrook MD) Medication Reconciliation New Medications: Dexamethasone (Decadron) 4 Mg Tab 4 MG PO TID for 30 Days, #90 TAB Furosemide (Furosemide) 40 Mg Tab 40 MG PO DAILY for 30 Days, #30 TAB Mirtazapine (Mirtazapine) 15 Mg Tab 7.5 MG PO HS for 30 Days, #30 TAB Continued Medications: Budesonide/Formoterol Fumarate (Symbicort 160-4.5 Mcg/Act) 60 Puffs/Inhaler Aero 2 PUFFS INH BID Digoxin (Digoxin) 0.125 Mg Tab 0.125 MG PO QAM Docusate Sodium (Stool Softener) 100 Mg Tab 100 MG PO BID PRN for Constipation Ipratropium-Albuterol (Duoneb) 3 Ml Nebu 1 TREATMENT INH Q6 PRN for SOB/Wheezing, INHA Levothyroxine Sodium (Synthroid) 50 Mcg Tab 50 MCG PO QAM Metoprolol Tartrate (Lopressor) (Lopressor) 50 Mg Tab 25 MG PO BID Omeprazole (Prilosec) 40 Mg Cap 40 MG PO HS, CAP Spironolactone (Aldactone) 25 Mg Tab 25 MG PO QAM, 0 Refills TAKE 1/2 HOUR BEFORE LASIX Tiotropium [place] Monohydrate (Spiriva Respimat) 2.5 Mcg/Act Spr 2 PUFFS INH DAILY Discontinued Medications: Aspirin (Aspirin Ec) 81 Mg Tab 81 MG PO DAILY Clopidogrel (Plavix) 75 Mg Tab 75 MG PO DAILY, TAB Furosemide (Lasix) 20 Mg Tab 20 MG PO DAILY, #90 TAB Prednisone (Prednisone) 20 Mg Tab 1 TAB PO DAILY for 30 Days, #30 TAB Referrals At Discharge Follow up Referrals: Physician Referral - Within 1-2 Weeks with Anthony Abarca M.D. Discharge Exam Patient reports breathing is okay today. Denies shortness of breath at rest. He does get winded with exertion. He denies any chest pain. No abdominal pain. Had a bowel movement last night and reportedly normal. Denies any nausea. Slept better last night. Review of Systems: Constitutional: No fever Respiratory: + dyspnea on exertion Cardiovascular: No chest pain Abdomen: No nausea Physical Exam: General Appearance: + mild distress (mild respiratory distress. Color improved today.) Eyes: EOMI Neck: no JVD Respiratory/Chest: + pertinent finding (mild coarse breath sounds bilaterally. No crackles. No wheezing.) Cardiovascular: + pertinent finding (occasionally irregular. No murmur.) Abdomen / GI: normal bowel sounds, non tender, soft Extremities: + pertinent finding (trace pitting edema in the lower extremities without any tenderness noted bilaterally.) Neurologic/Psychiatric: no motor/sensory deficits, alert Skin: warm/dry (color improved. Ecchymosis noted to the extremities bilaterally.) (Palmira Burgos, TCC) Hospital Course 81 y/o male with a history of lung adenocarcinoma, CHF, CAD COPD who presented to the ED on 11/10 with worsening shortness of breath. Acute on chronic respiratory failure. CXR shows congestive failure with bilateral pleural effusions R>L. EKG shows no ischemic changes. Cardiac enzymes negative, BNP elevated at 3475. Acute on chronic diastolic CHF -Echo just performed in 10/06-diastolic HF with mildly reduced EF 50-55% -Was started on Lasix 40 mg IV BID then transitioned to lasix 40 mg PO BID on -Home dose of Lasix increased from 20 mg daily to 40 mg daily -Continue digoxin 0.125 mg PO qd, -Continue spironolactone 25 mg PO qd -2 step shows patient will need 2 L of O2 at all times. Hx Lung AdenoCA-progressive -CT chest-shows significant progression of disease with a moderate-sized right- sided pleural effusion-likely malignant -Findings were discussed with the patient and the patient's family at length. The patient is agreeable now for a DO NOT RESUSCITATE status. -Palliative consult appreciated. Patient is not quite ready for hospice, however home health agency involved is able to transition to hospice as needed ?Constipation-resolved -continue Docusate 100 mg BID prn Oral candidiasis -Nystatin 5 mL PO QID x 7 days-course completed Leukocytosis-secondary to steroids. No fever, cough to indicate infection CAD-no anginal sx -Continue Plavix 75 mg PO qd and ASA 81 mg PO qd HTN -Continue metoprolol tartrate 25 mg PO BID HLD -Continue atorvastatin 80 mg PO qd COPD-no significant wheezing -Duonebs QID prn at home -Continue Spiriva 2 puffs inh qd and Symbicort 2 puffs inh BID Hypothyroidism -Continue Synthroid 50 mcg PO qd ? depression-poor appetite and sleep -Started on Remeron 7.5 mg HS-seems to be helping -Continue home dose of prednisone 20 mg daily for appetite DVT prophylaxis -Enoxaparin 40 mg SC q24h -AGNES bates SCDs Code Status -NOW DNR Family -Son Phil [phone] Total Time Spent: Greater than 30 minutes This includes examination of the patient, discharge planning, medication reconciliation, and communication with other providers. (Palmira Burgos, PA-C) Attending Attestation: Pt seen/examined, chart reviewed, and care plan d/w LUIS Burgos on day of discharge. I agree w/ the leon components of her discharge summary. 81yo male with known stage 4 lung ca who presented with worsening dyspnea. Treated for acute/chronic systolic/diastolic CHF with improvement in symptoms. During his stay he had additional imaging studies including CT head & CT chest both of which showed extensive metastatic disease. Multiple discussions were held with him and his son regarding these findings. Palliative care consultation was obtained. DNR status was recommended which he was accepting of. Hospice was also recommended; despite his significant overall decline in health & function he wanted to think about this option at time of discharge. Bohe-[id number]-[id number] he was set up with home health. At discharge he was placed on decadron in oscar of prednisone due to the suspected brain mets. He will continue on lasix but at 40mg once daily. He also qualifies for O2 and will use 2 L continuously. Discharge exam: gen - NAD mouth - MMM neck - no JVD heart - RRR lungs - decreased BS bases, CTA apices, no wheeze abd - soft ext - no edema The patient and his son were counseled that he was at high risk of readmission to the hospital due to his failure to thrive, progressive stage 4 lung ca, CHF, etc. I spoke with his PCP, Dr. Mihir Abarca, on day of discharge and he is aware of the progressive lung ca and the discussions that took place re: hospice. Yonathan Westbrook MD Total Time Spent: Greater than 30 minutes (Yonathan Westbrook MD) Discharge Instructions Please refer to the electronic Patient Visit Report (Discharge Instructions) for additional information. (Palmira Burgos PA-C) Follow-Up PCP 1-2 weeks (Palmira Burgos PA-C) Additional Copies To Will Wright D.O.; Anthony Abarca M.D.
--- NOTE | 2016-11-17 14:10 | DIAGNOSTIC IMAGING REPORT ---
HEAD CT NONCONTRAST CT DOSE: 537.48 mGy.cm HISTORY: Mental status change confusion-->? Metastatic dz. TECHNIQUE: Multiaxial CT images of the head were performed without the use of intravenous contrast. Comparison: 10/24/2015 Findings: The paranasal sinuses and mastoid air cells are clear. Interval development of several high density foci throughout cerebellar as well as cerebral hemispheres. There is a 5 mm focus of increased density left anterior antoinette. There are several foci of increased density within the cerebral hemispheres bilaterally. The largest on the right measures 11 mm with a large as on the left measuring 1.0 cm. Multiple smaller additional foci are noted. There is no midline shift. There is no mass effect. Diagnostic considerations include high density metastatic foci versus a multifocal hemorrhagic foci. Possibility of hemorrhagic infarct is considered although this is considered less likely given the widespread distribution. Impression: 1. Multifocal nodules of increased density throughout the cerebellar, cerebral, as well as pontine regions. 2. Possible hemorrhagic metastatic foci, high density metastatic foci, or several less likely etiologies are possible. 3. MRI of the brain is suggested as follow-up Electronically signed by: Bob Morales M.D. 11/17/2016 2:09 PM Dictated Date/Time: 11/17/2016 2:03 PM
[2016-11-17] MEDS ORDERED: DXM/4 PO (15:14)
[2016-11-17] MEDS: DIGOXIN 0.125 MG TAB PO SCH (16:00)
== END 2016-11-17 17:08 | disposition home health service (06) | DRG 292 ==
LOC: ENRESERVDT → ENRESERVTM → C.EDB 05:25 → C.EDINP 08:37 → C.2T 13:03 → OBSVTOIN 11-11 14:39
PROVIDERS: ADMIT Hospitalist; ATTEND Internal Medicine
DX: I50.33 Acute on chronic diastolic (congestive) heart failure (principal); C34.90 Malignant neoplasm of unspecified part of unspecified bronchus or lung; B37.0 Candidal stomatitis; I25.10 Atherosclerotic heart disease of native coronary artery without angina pectoris; Z95.0 Presence of cardiac pacemaker; E03.9 Hypothyroidism, unspecified; I11.0 Hypertensive heart disease with heart failure; R62.7 Adult failure to thrive; R63.0 Anorexia; Z68.23 Body mass index [BMI] 23.0-23.9, adult; K74.60 Unspecified cirrhosis of liver; Z51.5 Encounter for palliative care; K59.00 Constipation, unspecified; D72.829 Elevated white blood cell count, unspecified; E78.5 Hyperlipidemia, unspecified; J44.9 Chronic obstructive pulmonary disease, unspecified; Z66 Do not resuscitate; M10.00 Idiopathic gout, unspecified site; Z79.52 Long term (current) use of systemic steroids; Z95.1 Presence of aortocoronary bypass graft; Z87.891 Personal history of nicotine dependence; G47.00 Insomnia, unspecified; Z82.49 Family history of ischemic heart disease and other diseases of the circulatory system; Z82.3 Family history of stroke; Z80.9 Family history of malignant neoplasm, unspecified

== ENCOUNTER 2016-11-17 21:07 | Inpatient (IN) | payer OTHER ==
[~2016-11-17] VITALS: Ht 160 cm; Wt 61.5 kg
[~2016-11-17 21:07] MED LIST changes: -DIGO0.122 PO; +DXM/4 PO; +IPRASOL4 INH; +LNX125 PO; +LSX40 PO; +MELATAB2 PO; -MISC-573; -OMEP40CA PO; +OMEP40CA41 PO; +PRED20TA PO; +RMR15 PO
[2016-11-17] MEDS ORDERED: OXYMETAZOLINE HCL 0.05% NA SPR 15 ML BTL ONE (21:25)
[2016-11-17] MEDS ORDERED: LIDOCAINE 4% W/AFRIN NASAL SOLN 4ML ONE (21:39)
--- NOTE | 2016-11-17 21:50 | EMERGENCY ROOM VISIT NOTE ---
History Report prepared by Monse: Ilan Sparrow Under the Supervision of: Dr. Eric Juarez M.D. First contact with patient: 21:36 Chief Complaint: NOSE BLEED (MINOR) Stated Complaint: NOSE BLEED History of Present Illness The patient is a 81 year old male who presents to the Emergency Room with complaints of an episode of nose bleeding occurring just [employer]. Per the patient's son, his bleeding is noted to be mostly from the right naris. He was discharged today after being treated for CHF. He has metastatic lung cancer with mets to the brain--a few of the lesions were noted to be bleeding today by CT scan. His Plavix was been stopped after the morning dose today. He was recently started on 2 L of supplemental oxygen. The son notes that the patient has had nose bleeds in the past which have had to be cauterized. Source of History: family Onset: just [employer] Position: nose (right naris) Quality: other (nose bleed) Timing: other (episode) Associated Symptoms: + SOB Review of Systems See HPI for pertinent positives & negatives. A total of 10 systems reviewed and were otherwise negative. Past Medical & Surgical Medical Problems: (1) Comfort measures only status (2) Dehydration, moderate (3) Elevated troponin I level (4) Feeling exhausted (5) Gouty arthropathy (6) Influenza A (7) Liver contusion (8) Lung cancer (9) Neutropenia (10) Post-op pain (11) Systolic heart failure Surgical Problems: (1) S/P CABG (coronary artery bypass graft) Family History Cancer FHx: cancer Heart disease Hypertension Lung disease Stroke Social History Smoking Status: Former Smoker Alcohol Use: none Drug Use: none Marital Status: Housing Status: lives alone Occupation Status: retired Current/Historical Medications Scheduled Allopurinol (Zyloprim), 100 MG PO QAM Ascorbic Acid (Vitamin C), 500 MG PO BID Atorvastatin Calcium (Lipitor), 80 MG PO HS Budesonide/Formoterol Fumarate (Symbicort 160-4.5 Mcg/Act), 2 PUFFS INH BID Dexamethasone (Decadron), 4 MG PO TID Digoxin (Digoxin), 0.125 MG PO QAM Furosemide (Furosemide), 40 MG PO DAILY Levothyroxine Sodium (Synthroid), 50 MCG PO QAM Metoprolol Tartrate (Lopressor) (Lopressor), 25 MG PO BID Mirtazapine (Mirtazapine), 7.5 MG PO HS Multivitamin (Multivitamin), 1 TAB PO QAM Omeprazole (Prilosec), 40 MG PO HS Ranitidine (Zantac), 150 MG PO QAM Spironolactone (Aldactone), 25 MG PO QAM Tiotropium [place] Monohydrate (Spiriva Respimat), 2 PUFFS INH DAILY Valacyclovir Hcl (Valtrex), 1 GM PO BID Scheduled PRN Docusate Sodium (Stool Softener), 100 MG PO BID PRN for Constipation Ipratropium-Albuterol (Duoneb), 1 TREATMENT INH Q6 PRN for SOB/Wheezing Melatonin (Melatonin Maximum Strengt), 1 TAB PO HS PRN for Sleep Nitroglycerin (Nitrostat), 0.4 MG UT PRN PRN for CHEST PAIN Allergies Coded Allergies: Lisinopril (Verified Allergy, Unknown, Unknown, 11/10/16) Physical Exam Vital Signs Date Time Temp Pulse Resp B/P Pulse Ox O2 Delivery O2 Flow Rate FiO2 11/18/16 00:11 99 24 107/70 94 BiPAP 10.0 11/17/16 23:29 95 24 94 BiPAP/CPAP 5.0 11/17/16 23:27 95 94 5.0 11/17/16 23:02 88 18 153/76 98 Non-Rebreather 15.0 11/17/16 22:22 96 18 178/87 98 Non-Rebreather 15.0 11/17/16 21:51 90 11/17/16 21:11 36.5 85 18 118/67 93 Room Air Physical Exam GENERAL: Patient is in moderate distress secondary to dyspnea. HEENT: Nasal clip on his nose. Blood in mouth and a clot hanging from the right posterior pharynx noted. Blood oozing primarily from right naris. Dried blood on face. NECK: No stridor, no adenopathy, no meningismus, trachea is midline. LUNGS: Rhonchi noted bilaterally, worse on right. Moderate respiratory distress noted. HEART: Seems like regular rhythm, but auscultation is difficult secondary to lung sounds. ABDOMEN: Soft, nontender, bowel sounds positive, no hernias, no peritonitis. EXTREMITIES: No cyanosis, full range of motion of all the joints without pain or difficulty, no signs for acute trauma. NEUROLOGIC: No acute motor or sensory deficits, no focal weakness. SKIN: No rash, no jaundice, no diaphoresis. Medical Decision & Procedures ER Provider Diagnostic Interpretation: Radiology results are stated below per my review and radiologist interpretation: CHEST ONE VIEW PORTABLE FINDINGS: The cardiac and mediastinal contours remain stable. There are bilateral airspace opacities which are the most recent CT scan, representing multiple pulmonary nodules. There is a subpulmonic right pleural effusion. There are postsurgical changes of midline sternotomy. There is a right-sided A-Port catheter. There is a left subclavian pacer/defibrillator.[ IMPRESSION: No significant change from the preceding study. Bilateral nodular airspace opacities which on the most recent CT scan, represented multiple pulmonary nodules. Subpulmonic right pleural effusion Electronically signed by: Milton Pond M.D. 11/17/2016 10:14 PM Dictated Date/Time: 11/17/2016 10:12 PM Laboratory Results 11/17/16 23:00 Red Blood Count 4.24, Mean Corpuscular Volume 93.9, Mean Corpuscular Hemoglobin 30.2, Mean Corpuscular Hemoglobin Concent 32.2, Mean Platelet Volume 9.4, Neutrophils (%) (Auto) 76.2, Lymphocytes (%) (Auto) 13.0, Monocytes (%) (Auto) 9.9, Eosinophils (%) (Auto) 0.1, Basophils (%) (Auto) 0.0, Neutrophils # (Auto) 16.07, Lymphocytes # (Auto) 2.75, Monocytes # (Auto) 2.08, Eosinophils # (Auto) 0.02, Basophils # (Auto) 0.01 11/17/16 22:34 Test 11/17/16 22:34 11/17/16 23:00 Anion Gap 8.0 mmol/L (3-11) Est Creatinine Clear Calc Drug Dose 58.0 ml/min Estimated GFR () 96.9 Estimated GFR (Non- 83.6 BUN/Creatinine Ratio 37.2 (10-20) Calcium Level 8.5 mg/dl (8.5-10.1) Magnesium Level 2.7 mg/dl (1.8-2.4) Total Bilirubin 0.6 mg/dl (0.2-1) Aspartate Amino Transf (AST/SGOT) 57 U/L (15-37) Alanine Aminotransferase (ALT/SGPT) 117 U/L (12-78) Alkaline Phosphatase 151 U/L (45-117) Troponin I 0.025 ng/ml (0-0.045) Total Protein 6.4 gm/dl (6.4-8.2) Albumin 2.8 gm/dl (3.4-5.0) Globulin 3.6 gm/dl (2.5-4.0) Albumin/Globulin Ratio 0.8 (0.9-2) Digoxin Level 1.6 ng/ml (0.8-2.0) White Blood Count 21.09 K/uL (4.8-10.8) Red Blood Count 4.24 M/uL (4.7-6.1) Hemoglobin 12.8 g/dL (14.0-18.0) Hematocrit 39.8 % (42-52) Mean Corpuscular Volume 93.9 fL (80-100) Mean Corpuscular Hemoglobin 30.2 pg (25-34) Mean Corpuscular Hemoglobin Concent 32.2 g/dl (32-36) Platelet Count 391 K/uL (130-400) Mean Platelet Volume 9.4 fL (7.4-10.4) Neutrophils (%) (Auto) 76.2 % Lymphocytes (%) (Auto) 13.0 % Monocytes (%) (Auto) 9.9 % Eosinophils (%) (Auto) 0.1 % Basophils (%) (Auto) 0.0 % Neutrophils # (Auto) 16.07 K/uL (1.4-6.5) Lymphocytes # (Auto) 2.75 K/uL (1.2-3.4) Monocytes # (Auto) 2.08 K/uL (0.11-0.59) Eosinophils # (Auto) 0.02 K/uL (0-0.5) Basophils # (Auto) 0.01 K/uL (0-0.2) RDW Standard Deviation 57.1 fL (36.4-46.3) RDW Coefficient of Variation 16.6 % (11.5-14.5) Immature Granulocyte % (Auto) 0.8 % Immature Granulocyte # (Auto) 0.16 K/uL (0.00-0.02) Nucleated RBC Absolute Count (auto) 0.02 K/uL (0-0) Nucleated Red Blood Cells % 0.1 % Prothrombin Time 11.9 SECONDS (9.0-12.0) Prothromb Time International Ratio 1.1 (0.9-1.1) Activated Partial Thromboplast Time 22.6 SECONDS (21.0-31.0) Partial Thromboplastin Ratio 0.9 Laboratory results reviewed by me. Medications Administered Medications (Trade) Dose Ordered Sig/Sheila Route Start Time Stop Time Status Last Admin Dose Admin Oxymetazoline HCl (Afrin 0.05% Nasal [place]) 75 sprays STK-MED ONCE .ROUTE 11/17/16 21:25 11/17/16 21:28 DC 11/17/16 21:25 75 SPRAYS Lorazepam (Ativan Inj) 0.5 mg NOW STAT IV 11/17/16 22:15 11/17/16 22:16 DC 11/17/16 22:20 0.5 MG Nitroglycerin (Nitroglycerin 2% Oint) 2 inch NOW STAT EXT 11/17/16 22:17 11/17/16 22:23 DC 11/17/16 22:24 2 INCH Bumetanide (Bumex IV) 1 mg NOW STAT IV 11/17/16 22:17 11/17/16 22:23 DC 11/17/16 22:24 1 MG Albuterol/ Ipratropium (Duoneb) 3 ml NOW STAT INH 11/17/16 22:17 11/17/16 22:23 DC 11/17/16 22:24 3 ML Lorazepam (Ativan Inj) 0.5 mg NOW STAT IV 11/17/16 22:39 11/17/16 22:41 DC 11/17/16 22:53 0.5 MG Morphine Sulfate (MoRPHine SULFATE INJ) 2 mg NOW STAT IV 11/17/16 22:39 11/17/16 22:41 DC 11/17/16 22:39 2 MG Procedure Nasal packing placement: Using Afrin and lidocaine spray, the right naris was prepped. A 5.5 cm Rhino pack was placed, the balloon was inflated. This did stop the nasal bleeding. There were no complications with the procedure. ECG Indication: other (nose bleed) Rate (beats per minute): 106 Rhythm: other (ventricular pacemaker with occasional [place] beats) Findings: no acute ischemic change ED Course 2138: The patient was evaluated in room C9. A complete history and physical exam was performed. 5: Ordered Ativan Inj 0.5 mg IV. 7: Ordered Duoneb 3 ml INH, Bumex IV 1 mg IV, and Nitroglycerin 2 inch EXT. 2239: Ordered Morphine Sulfate 2 mg IV, and Ativan Inj 0.5 mg IV. 2325: I reassessed the patient and he is starting to look better. 2328: Discussed the patient's case with Dr. Drew. The patient will be evaluated for further management. Medical Decision Differentials include coagulopathy, CHF, hypoxia, pneumonia, anemia, electrolyte imbalance, and renal failure. There is a marked leukocytosis at 21,000, this could be consistent with infection but I suspect it is more consistent with the stress of his dyspnea and nasal bleed. No worrisome anemia. No coagulopathy. A mild hepatitis was present but this has been documented in the past. EKG shows a ventricular pacemaker, cardiac enzyme testing times one does not suggest acute cardiac injury. Chest film shows diffuse congestion consistent with CHF and likely consistent with his lung malignancy. No pneumonia noted, no pneumothorax. Digoxin level was not toxic. The patient was aggressively managed. He was very dyspneic and uncomfortable and his O2 saturation was in the 70s to 80s. He was having right-sided epistaxis and this was preventing us from applying a mask for oxygen supplementation. A right sided rhino pack was placed as noted above without complication, this stopped the bleeding. The patient was given facemask oxygen supplementation and eventually placed on BiPAP. He was given a DuoNeb. The patient received nitroglycerin paste, IV Bumex, he received IV Ativan for relaxation, he was given IV morphine for pain control. With this above treatment, the patient does seem more comfortable and his O2 saturation is adequate. He is resting and does not seem in distress. I had a talk with his son, the patient is in critical condition, his son understands. The patient may not survive this hospitalization. He has metastatic lung cancer , he appears to be fluid overloaded. He presents hypoxic. He just had a CT scan of the brain earlier today showing metastatic disease with some areas of bleeding within the metastases. The main goal is to make the patient comfortable. We have done so. He is not to be intubated, no CPR. I spoke with the disease case manager, the on-call hospitalist was consulted. Consults Time Called: [phone] Consulting Physician: Dr. Drew - [facility] [place] Returned Call: [phone] Discussed the patient's case with Dr. Drew. The patient will be evaluated for further management. Impression Primary Impression: Respiratory distress Additional Impressions: Epistaxis Hypoxia CHF (congestive heart failure) Metastatic lung cancer (metastasis from lung to other site) Critical Care I have personally spent greater than 35 minutes of critical care time in the direct management of this patient. This includes bedside care, interpretation of diagnostic studies, and testing, discussion with consultants, patient, and family members, and other required patient management activities. This 35 minutes is in excess of all separately billable procedures. Scribe Attestation The scribe's documentation has been prepared under my direction and personally reviewed by me in its entirety. I confirm that the note above accurately reflects all work, treatment, procedures, and medical decision making performed by me. Departure Information Dispostion Being Evaluated By Hospitalist Referrals Anthony Abarca M.D. (PCP) Patient Instructions [facility] Health Problem Qualifiers
[2016-11-17] MEDS ORDERED: LORAZEPAM 2 MG/ML 1 ML VIAL IV STA ×2 (22:15→22:39)
--- NOTE | 2016-11-17 22:16 | DIAGNOSTIC IMAGING REPORT ---
CHEST ONE VIEW PORTABLE CLINICAL HISTORY: sob COMPARISON STUDY: 11/15/2016 FINDINGS: The cardiac and mediastinal contours remain stable. There are bilateral airspace opacities which are the most recent CT scan, representing multiple pulmonary nodules. There is a subpulmonic right pleural effusion. There are postsurgical changes of midline sternotomy. There is a right-sided A-Port catheter. There is a left subclavian pacer/defibrillator.[ IMPRESSION: No significant change from the preceding study. Bilateral nodular airspace opacities which on the most recent CT scan, represented multiple pulmonary nodules. Subpulmonic right pleural effusion Electronically signed by: Milton Pond M.D. 11/17/2016 10:14 PM Dictated Date/Time: 11/17/2016 10:12 PM
[2016-11-17] MEDS ORDERED: BUMETANIDE SOLN 1 MG/4 ML VIAL IV STA (22:17)
[2016-11-17] MEDS ORDERED: NITROGLYCERIN OINT 2% 1GM PACKET EXT STA (22:17)
[2016-11-17] MEDS ORDERED: ALBUT/IPRATROP 3MG/0.5MG NEB 3 ML VIAL INH STA (22:17)
[2016-11-17] MEDS ORDERED: NITROGLYCERIN OINT 2% 1GM PACKET ONE (22:18)
[2016-11-17] MEDS ORDERED: BUMETANIDE SOLN 1 MG/4 ML VIAL IV ONE (22:19)
[2016-11-17] MEDS ORDERED: ALBUT/IPRATROP 3MG/0.5MG NEB 3 ML VIAL ONE (22:19)
[2016-11-17] MEDS ORDERED: MoRPHine SULFATE 2 MG/ML CARP IV STA (22:39)
[2016-11-17 23:20] LABS: ALB/GLOB RATIO 0.8 (0.9-2); BUN/CREATININE RATIO 37.2 (10-20); CALCIUM 8.5 mg/dl (8.5-10.1); CREATININE 0.79 mg/dl (0.60-1.40); MAGNESIUM 2.7 mg/dl (1.8-2.4); POTASSIUM 4.9 mmol/L (3.5-5.1)
[2016-11-17 23:27] VITALS: PULSE 95; O2SAT 94
[2016-11-17 23:27] LABS: INR 1.1 (0.9-1.1); PARTIAL THROMBOPLASTIN RATIO 0.9; PROTHROMBIN TIME (PATIENT) 11.9 SECONDS (9.0-12.0)
[2016-11-17 23:29] VITALS: PULSE 95; O2SAT 94
[2016-11-17 23:30] LABS: BASO ABS # 0.01 K/uL (0-0.2); COMPLETE YES; EOS % 0.1 %; HEMATOCRIT 39.8 % (42-52); IG% 0.8 %; LYMPH ABS # 2.75 K/uL (1.2-3.4); MEAN CELL VOLUME 93.9 fL (80-100); MEAN CORPUSCULAR HEMOGLOBIN 30.2 pg (25-34); MEAN CORPUSCULAR HGB CONC 32.2 g/dl (32-36); MEAN PLATELET VOLUME 9.4 fL (7.4-10.4); MONO % 9.9 %; NEUT % 76.2 %; PLATELET COUNT 391 K/uL (130-400); RED BLOOD COUNT 4.24 M/uL (4.7-6.1); WHITE BLOOD COUNT 21.09 K/uL (4.8-10.8)
[2016-11-18] VITALS (7 sets, daily range): BP systolic 101–137; BP diastolic 69–75; PULSE 83–93; TEMP 36.2–36.7; O2SAT 91–99; Ht 160 cm; Wt 61.5 kg
[2016-11-18] MEDS ORDERED: ONDANSETRON INJ 2 MG/ML 2 ML VIAL IV PRN
--- NOTE | 2016-11-18 00:29 | History and Physical ---
History & Physical Date & Time of Service: Nov 18, 2016 at 00:27 Chief Complaint: Nose Bleed Primary Care Physician: Anthony Abarac M.D. History of Present Illness Source: family 81 y/o M w/Hx metastatic lung CA with brain metastasis, CHF, CAD - recent admission for CHF exacerbation. Discharged from hospital 11/17 after a change in code status indicating DNR/DNI. The pt was brought back due epistaxis and SOB. He was also confused and lethargic and had received Ativan and Morphine in the ER along with having his R nare packed. The pt is unable to contribute to the HPI due to sedation and his underlying condition. It was noted on recent head CT that there was suspicion of hemorrhaging surrounding his brain mets. After discussion with the family and considering the pts functional decline and declining quality of life, the family have requested he be placed on comfort measures. I did carefully explain what this entails and they do wish to proceed with comfort measures only. Past Medical/Surgical History Medical Problems: (1) Gouty arthropathy Status: Chronic (2) Systolic heart failure Status: Resolved Surgical Problems: (1) S/P CABG (coronary artery bypass graft) Status: Resolved Family History Cancer FHx: cancer Heart disease Hypertension Lung disease Stroke Social History Smoking Status: Former Smoker Drug Use: none Marital Status: Housing status: lives alone Occupational Status: retired Immunizations History of Influenza Vaccine: No Influenza Vaccine Date: Jul 10, 2011 History of Tetanus Vaccine?: Unknown History of Pneumococcal: Unknown Pneumococcal Date: Mar 10, 2007 History of Hepatitis B Vaccine: Unknown Multi-Drug Resistant Organisms History of MDRO: No Allergies Coded Allergies: Lisinopril (Verified Allergy, Unknown, Unknown, 11/10/16) Home Medications Scheduled Allopurinol (Zyloprim), 100 MG PO QAM Ascorbic Acid (Vitamin C), 500 MG PO BID Atorvastatin Calcium (Lipitor), 80 MG PO HS Budesonide/Formoterol Fumarate (Symbicort 160-4.5 Mcg/Act), 2 PUFFS INH BID Dexamethasone (Decadron), 4 MG PO TID Digoxin (Digoxin), 0.125 MG PO QAM Furosemide (Furosemide), 40 MG PO DAILY Levothyroxine Sodium (Synthroid), 50 MCG PO QAM Metoprolol Tartrate (Lopressor) (Lopressor), 25 MG PO BID Mirtazapine (Mirtazapine), 7.5 MG PO HS Multivitamin (Multivitamin), 1 TAB PO QAM Omeprazole (Prilosec), 40 MG PO HS Ranitidine (Zantac), 150 MG PO QAM Spironolactone (Aldactone), 25 MG PO QAM Tiotropium [place] Monohydrate (Spiriva Respimat), 2 PUFFS INH DAILY Valacyclovir Hcl (Valtrex), 1 GM PO BID Scheduled PRN Docusate Sodium (Stool Softener), 100 MG PO BID PRN for Constipation Ipratropium-Albuterol (Duoneb), 1 TREATMENT INH Q6 PRN for SOB/Wheezing Melatonin (Melatonin Maximum Strengt), 1 TAB PO HS PRN for Sleep Nitroglycerin (Nitrostat), 0.4 MG UT PRN PRN for CHEST PAIN Review of Systems Cannot obtain from pt - as per HPI - brought in for epistaxis, SOB, confusion. Physical Exam Vital Signs Date Time Temp Pulse Resp B/P Pulse Ox O2 Delivery O2 Flow Rate FiO2 11/18/16 00:11 99 24 107/70 94 BiPAP 10.0 11/17/16 23:29 95 24 94 BiPAP/CPAP 5.0 11/17/16 23:27 95 94 5.0 11/17/16 23:02 88 18 153/76 98 Non-Rebreather 15.0 11/17/16 22:22 96 18 178/87 98 Non-Rebreather 15.0 11/17/16 21:51 90 11/17/16 21:11 36.5 85 18 118/67 93 Room Air General Appearance: + pertinent finding (Poorly responsive elderly male - does not appear distressed.) Head: normocephalic, atraumatic Eyes: normal inspection, EOMI ENT: normal ENT inspection, hearing grossly normal, TMs normal, pharynx normal Neck: supple, no JVD Respiratory/Chest: + decreased breath sounds, + pertinent finding (limited exam due to effort and large air noises) Cardiovascular: regular rate, rhythm, + systolic murmur, + pertinent finding ( Sternotomy scar ) Abdomen/GI: normal bowel sounds, non tender, soft Back: normal inspection, no CVA tenderness Extremities/Musculoskelatal: + pedal edema, + pertinent finding (mottling and cyanotic discoloration of upper extremities which is chronic) Neurologic/Psych: + pertinent finding (presently unresponsive due to sedation and underlying AMS - full exam deffered) Skin: no rash, + pertinent finding (mottling and cyanotic discoloration of upper extremities which is chronic) Diagnostics Laboratory Results Results Past 24 Hours Test 11/17/16 22:34 11/17/16 23:00 Range/Units Sodium Level 132 136-145 mmol/L Potassium Level 4.9 3.5-5.1 mmol/L Chloride Level 92 98-107 mmol/L Carbon Dioxide Level 32 21-32 mmol/L Anion Gap 8.0 3-11 mmol/L Blood Urea Nitrogen 29 7-18 mg/dl Creatinine 0.79 0.60-1.40 mg/dl Est Creatinine Clear Calc Drug Dose 58.0 ml/min Estimated GFR () 96.9 Estimated GFR (Non- 83.6 BUN/Creatinine Ratio 37.2 10-20 Random Glucose 123 70-99 mg/dl Calcium Level 8.5 8.5-10.1 mg/dl Magnesium Level 2.7 1.8-2.4 mg/dl Total Bilirubin 0.6 0.2-1 mg/dl Aspartate Amino Transf (AST/SGOT) 57 15-37 U/L Alanine Aminotransferase (ALT/SGPT) 117 12-78 U/L Alkaline Phosphatase 151 45-117 U/L Troponin I 0.025 0-0.045 ng/ml Total Protein 6.4 6.4-8.2 gm/dl Albumin 2.8 3.4-5.0 gm/dl Globulin 3.6 2.5-4.0 gm/dl Albumin/Globulin Ratio 0.8 0.9-2 Digoxin Level 1.6 0.8-2.0 ng/ml White Blood Count 21.09 4.8-10.8 K/uL Red Blood Count 4.24 4.7-6.1 M/uL Hemoglobin 12.8 14.0-18.0 g/dL Hematocrit 39.8 42-52 % Mean Corpuscular Volume 93.9 80-100 fL Mean Corpuscular Hemoglobin 30.2 25-34 pg Mean Corpuscular Hemoglobin Concent 32.2 32-36 g/dl Platelet Count 391 130-400 K/uL Mean Platelet Volume 9.4 7.4-10.4 fL Neutrophils (%) (Auto) 76.2 % Lymphocytes (%) (Auto) 13.0 % Monocytes (%) (Auto) 9.9 % Eosinophils (%) (Auto) 0.1 % Basophils (%) (Auto) 0.0 % Neutrophils # (Auto) 16.07 1.4-6.5 K/uL Lymphocytes # (Auto) 2.75 1.2-3.4 K/uL Monocytes # (Auto) 2.08 0.11-0.59 K/uL Eosinophils # (Auto) 0.02 0-0.5 K/uL Basophils # (Auto) 0.01 0-0.2 K/uL RDW Standard Deviation 57.1 36.4-46.3 fL RDW Coefficient of Variation 16.6 11.5-14.5 % Immature Granulocyte % (Auto) 0.8 % Immature Granulocyte # (Auto) 0.16 0.00-0.02 K/uL Nucleated RBC Absolute Count (auto) 0.02 0-0 K/uL Nucleated Red Blood Cells % 0.1 % Prothrombin Time 11.9 9.0-12.0 SECONDS Prothromb Time International Ratio 1.1 0.9-1.1 Activated Partial Thromboplast Time 22.6 21.0-31.0 SECONDS Partial Thromboplastin Ratio 0.9 Diagnostic Radiology 1. Multifocal nodules of increased density throughout the cerebellar, cerebral, as well as pontine regions. 2. Possible hemorrhagic metastatic foci Impression Assessment and Plan 81 y/o M w/Hx metastatic lung CA with brain metastasis, CHF, CAD - recent admission for CHF exacerbation. Discharged from hospital 11/17 after a change in code status indicating DNR/DNI. The pt was brought back due epistaxis and SOB. He was also confused and lethargic and had received Ativan and Morphine in the ER along with having his R nare packed. The pt is unable to contribute to the HPI due to sedation and his underlying condition. It was noted on recent head CT that there was suspicion of hemorrhaging surrounding his brain mets. After discussion with the family and considering the pts functional decline and declining quality of life, the family have requested he be placed on comfort measures. I did carefully explain what this entails and they do wish to proceed with comfort measures only. Pt admitted to the medical floor with comfort measures to be weened off Discussed with family including POA - chart reviewed - DNR/DNI status confirmed - home meds/labs additional diagnostics D/Cd Level of Care Med/Surg Resuscitation Status DO NOT RESUSCITATE VTE Prophylaxis VTE Risk Assessment Done? Y/N: Yes Risk Level: High Given or contraindicated: Treatment not indicated
[2016-11-18] MEDS ORDERED: MoRPHine SULFATE 4 MG/ML 1 ML CARP\\VIAL IV PRN (00:30)
[2016-11-18] MEDS ORDERED: LORAZEPAM 2 MG/ML 1 ML VIAL IV PRN (00:30)
[2016-11-18] MEDS ORDERED: LORAZEPAM INJ 1 MG in SYRINGE 0.5 ML IV PRN (03:15)
--- NOTE | 2016-11-18 09:24 | Palliative Care Consultation ---
Consultation Date of Consultation: Nov 18, 2016. Requesting Physician: Dr. Drew Attending Physician: Palmira Burgos PA-C Reason for Consultation: Goals of care History of Present Illness This 81 year old gentleman came to the ED last night with complaints of epistaxis. Patient just left hospital yesterday after a week-long stay at the hospital for CHF exacerbation, bilateral lung adenocarcinoma with newly found brain mets, and COPD. Yesterday, the patient was discharged to home with home health services. He lives home alone and has frequent visits from his son, daughter, and [id number]. During his last stay, patient was having difficulty with short-term memory loss, which is what prompted physician to order a CT scan of the head. CT showed "Impression: 1. Multifocal nodules of increased density throughout the cerebellar, cerebral, as well as pontine regions. 2. Possible hemorrhagic metastatic foci, high density metastatic foci, or several less likely etiologies are possible. 3. MRI of the brain is suggested as follow-up." Patient and son, Phil, both indicated that no aggressive treatment would be pursued, as the patient had already decided back in July 2016 to no longer receive chemotherapy for his lung ca after he was admitted with neutropenic fever. Yesterday, the patient got home. His son, Phil , went to the store to orange picking supervisor patient's medicine, and when he returned he found his father with a nose bleed so he brought him back to the ED. The patient began to cough and have respiratory distress due to the bleeding. A nasal rocket/packing was placed in the right nare and patient placed on bipap. He was given 1mg IV morphine and 1mg IV Ativan in the ED as well, he was rather lethargic over night. Patient's family decided to make patient comfort measures only, patient admitted to [facility]. Palliative care consulted to assist in this patient's care. This patient is known to me from previous admission. I had met with the patient and his son, Phil, yesterday and we discussed goals of care. Goal was for patient to be at home, but they were aware of the new brain mets and verbalized understanding that patient's care needs may increase in the near future. However , they still wanted patient to go home with home health and therapy. He was interested in eventually transitioning to hospice. I met with the patient and his [id number] Shefali, his daughter, his sister Viviana, and nephew. The patient was on bipap but was fully alert when I entered the room. Shefali stated that the patient had just woken up. I removed the bipap and placed a 6L oxygen mask, O2 saturation increased from 89% to 96%. Patient able to talk, but is disoriented at this time. The family and patient still agree that the goal is for comfort at this point and understand that the patient is not going to be able to go back to his home alone. We discussed that the patient will likely need placement into a facility. Past Medical/Surgical History Medical History: CHF EF 40-45% CAD s/p stenting and CABG COPD with home O2 Hypothyroidism HTN HLD Bilateral lung adenocarcinoma with newly found brain metastases Surgical History: Bi-ventricular ICD CABG Social History Smoking Status: Former Smoker History of Alcohol Use: No Drug Use: none Marital Status: Housing Status: lives alone Occupation Status: retired Review of Systems Constitutional: + weakness ENT: + unusual epistaxis Respiratory: No cough, No dyspnea on exertion, No shortness of breath Cardiac: No chest pain, No edema Abdomen: No nausea, No pain, No vomiting Male : No problem reported Neurologic: + memory loss (short-term) Allergies Coded Allergies: Lisinopril (Verified Allergy, Unknown, Unknown, 11/10/16) Medications Current Inpatient Medications Medications (Trade) Dose Ordered Sig/Sheila Route Start Time Stop Time Status Last Admin Dose Admin Ondansetron HCl (Zofran Inj) 4 mg Q6H PRN IV 11/18/16 00:00 12/18/16 00:00 Morphine Sulfate (MoRPHine SULFATE INJ) 4 mg Q1H PRN IV 11/18/16 00:30 12/02/16 00:29 Lorazepam 1 mg 1 mg Q2H PRN IV 11/18/16 00:30 12/18/16 00:29 Lorazepam/Syringe (Ativan Inj/ Syringe) 1 ml @ 1 mls/min Q2H PRN IV 11/18/16 03:15 12/18/16 03:14 Physical Exam Date Time Temp Pulse Resp B/P Pulse Ox O2 Delivery O2 Flow Rate FiO2 11/18/16 04:27 83 92 5.0 11/18/16 02:00 BiPAP 5.0 11/18/16 02:00 36.5 88 24 101/69 BiPAP 5.0 11/18/16 01:40 88 95 5.0 11/18/16 01:13 93 24 101/69 94 11/18/16 01:01 94 11/18/16 00:11 99 24 107/70 94 BiPAP 10.0 11/17/16 23:29 95 24 94 BiPAP/CPAP 5.0 11/17/16 23:27 95 94 5.0 11/17/16 23:02 88 18 153/76 98 Non-Rebreather 15.0 11/17/16 22:22 96 18 178/87 98 Non-Rebreather 15.0 11/17/16 21:51 90 11/17/16 21:11 36.5 85 18 118/67 93 Room Air General Appearance: no apparent distress, + pertinent finding (chronically ill appearing) ENT: + pertinent finding (spider angiomas covering cheeks and nose) Neck: no JVD Respiratory: no respiratory distress, no accessory muscle use, + decreased breath sounds, + rhonchi (few rhonchi throughout lung mendoza), + pertinent finding (6L mask) Cardiovascular: regular rate, rhythm, no edema, + normal peripheral pulses Abdomen: normal bowel sounds, non tender, soft Neurologic/Psychiatric: alert, + disoriented Skin: + cyanosis (of tip of nose) Laboratory Results Last 24 Hours Test 11/17/16 22:34 11/17/16 23:00 Sodium Level 132 mmol/L Potassium Level 4.9 mmol/L Chloride Level 92 mmol/L Carbon Dioxide Level 32 mmol/L Anion Gap 8.0 mmol/L Blood Urea Nitrogen 29 mg/dl Creatinine 0.79 mg/dl Est Creatinine Clear Calc Drug Dose 58.0 ml/min Estimated GFR () 96.9 Estimated GFR (Non- 83.6 BUN/Creatinine Ratio 37.2 Random Glucose 123 mg/dl Calcium Level 8.5 mg/dl Magnesium Level 2.7 mg/dl Total Bilirubin 0.6 mg/dl Aspartate Amino Transf (AST/SGOT) 57 U/L Alanine Aminotransferase (ALT/SGPT) 117 U/L Alkaline Phosphatase 151 U/L Troponin I 0.025 ng/ml Total Protein 6.4 gm/dl Albumin 2.8 gm/dl Globulin 3.6 gm/dl Albumin/Globulin Ratio 0.8 Digoxin Level 1.6 ng/ml White Blood Count 21.09 K/uL Red Blood Count 4.24 M/uL Hemoglobin 12.8 g/dL Hematocrit 39.8 % Mean Corpuscular Volume 93.9 fL Mean Corpuscular Hemoglobin 30.2 pg Mean Corpuscular Hemoglobin Concent 32.2 g/dl Platelet Count 391 K/uL Mean Platelet Volume 9.4 fL Neutrophils (%) (Auto) 76.2 % Lymphocytes (%) (Auto) 13.0 % Monocytes (%) (Auto) 9.9 % Eosinophils (%) (Auto) 0.1 % Basophils (%) (Auto) 0.0 % Neutrophils # (Auto) 16.07 K/uL Lymphocytes # (Auto) 2.75 K/uL Monocytes # (Auto) 2.08 K/uL Eosinophils # (Auto) 0.02 K/uL Basophils # (Auto) 0.01 K/uL RDW Standard Deviation 57.1 fL RDW Coefficient of Variation 16.6 % Immature Granulocyte % (Auto) 0.8 % Immature Granulocyte # (Auto) 0.16 K/uL Nucleated RBC Absolute Count (auto) 0.02 K/uL Nucleated Red Blood Cells % 0.1 % Prothrombin Time 11.9 SECONDS Prothromb Time International Ratio 1.1 Activated Partial Thromboplast Time 22.6 SECONDS Partial Thromboplastin Ratio 0.9 Assessment & Plan Palliative Performance Scale: 20 % Problem list: Altered mental status Weakness Epistaxis Lung adenocarcinoma Newly found brain mets COPD CAD Goals of care (Z51.5) Palliative care plan: Discussed with patient, patient's family, LUIS Grceo -DNR/DNI -Comfort measures only per the patient and patient's family -Patient will need placement into SNF, cannot go home alone without 24/7 caregivers -Patient is requesting to have a drink, patient and family are okay with comfort feeding -If patient is able to tolerate PO and is alert enough, I would restart his cardiac medications -Has PRN morphine and lorazepam ordered, has not received any doses since he was in the ED Thank you kindly for this consult. I will follow as needed.
[2016-11-18] MEDS ORDERED: ALBUT/IPRATROP 3MG/0.5MG NEB 3 ML VIAL INH PRN (12:30)
[2016-11-18] MEDS ORDERED: FUROSEMIDE 40 MG/4 ML VIAL IV STA (12:43)
[2016-11-18] MEDS: DEXAMETHASONE 4 MG TAB PO SCH ×2 (14:06→19:55)
--- NOTE | 2016-11-18 14:18 | Progress Note ---
Progress Note Date of Service Nov 18, 2016. (Palmira Burgos, QUINN) Progress Note Patient admitted from the emergency department last night with acute respiratory distress and epistaxis. Patient was reportedly given morphine and Ativan in the emergency department. An anterior packing was placed in the right nare. After receiving medications, the patient was heavily sedated. The patient was admitted under comfort care measures. Patient was discharged from the hospital earlier on 11/17 with a diagnosis of acute on chronic hypoxic respiratory failure secondary to lung CA and decompensated diastolic heart failure. The patient is currently alert and answering questions appropriately. He denies any pain. He is feeling mildly winded. He does have a cough. O: 81-year-old male, ill in appearance, no significant distress Packing in the right nare Crackles noted at the left base Bowel sounds present. Abdomen nontender. No edema noted in the lower extremities bilaterally A/P: 81-year-old male with advanced lung cancer metastatic disease noted to brain, history of diastolic heart failure and coronary artery disease admitted for epistaxis, altered mental status secondary to medications with likely developing aspiration pneumonia secondary to epistaxis Long conversation with patient and the patient's family today and is with the decision for the patient to go to a SNF (likely [facility]) under hospice care We'll continue medications that will make the patient comfortable (Palmira Burgos, QUINN) Attending Attestation: Pt seen & examined with LUIS Burgos. Chart reviewed. I agree with her documentation as outlined. Pt more comfortable than last evening. He is more awake/alert. Agrees to hospice care. Numerous family at bedside; all in agreement with such. VSS no fever gen - thin, ill-appearing, NAD neck - no JVD nose - right nare - packing in place heart - RRR lungs - course BS b/l abd - soft ext - no edema A/P: 1. acute hypoxic resp failure - likely aspiration event from epistaxis 2. recent acute/chronic diastolic CHF 3. b/l pleural effusions - likely malignant 4. progressive, widespread stage 4 lung ca with brain mets 5. epistaxis, right nare - has stopped cont decadron for brain mets d/c any unnecessary meds family updated begin dispo planning - [facility] with palliative care/hospice Maddie TERRELL MD (Yonathan Terrell MD)
[2016-11-18] MEDS: BUDESONIDE/FORMOTEROL FUMARATE 160/4.5 60 PUFFS/INHALER INH SCH (19:55)
[2016-11-18] MEDS: METOPROLOL TARTRATE 50 MG TAB PO SCH (19:56)
[2016-11-18] MEDS: MIRTAZAPINE TAB 15 MG TAB PO SCH (20:56)
[2016-11-19] MEDS: LEVOTHYROXINE 50 MCG TAB PO SCH (06:45)
[2016-11-19] MEDS: RANITIDINE HCL 150 MG TAB PO SCH (07:36)
[2016-11-19] MEDS: FUROSEMIDE 40 MG TAB PO SCH (07:36)
[2016-11-19] MEDS: METOPROLOL TARTRATE 50 MG TAB PO SCH ×2 (07:37→20:48)
[2016-11-19] MEDS: DEXAMETHASONE 4 MG TAB PO SCH ×3 (07:37→20:48)
[2016-11-19] MEDS: BUDESONIDE/FORMOTEROL FUMARATE 160/4.5 60 PUFFS/INHALER INH SCH ×2 (07:38→20:47)
[2016-11-19] MEDS: SPIRONOLACTONE 25 MG TAB PO SCH (07:38)
[2016-11-19] MEDS ORDERED: FUROSEMIDE 40 MG/4 ML VIAL IV STA (11:30)
--- NOTE | 2016-11-19 13:05 | Hospitalist Progress Note ---
Hospitalist Progress Note Date of Service Nov 19, 2016. (Palmira Burgos PA-C) Subjective Pt evaluation today including: conversation w/ patient, conversation w/ family , physical exam, chart review, review of inpatient medication list Patient says that he is breathing comfortably. Denies any shortness of breath at rest. No chest pain. Denies any abdominal pain or nausea. Denies any fever or chills. Admits to having a cough. Additional Comments: 6 system review negative. Please see pertinent positives in the history of present illness section. (Palmira Burgos, QUINN) Objective Vital Signs Date Time Temp Pulse Resp B/P Pulse Ox O2 Delivery O2 Flow Rate FiO2 11/19/16 08:00 Mask 3.0 11/19/16 00:11 Mask 3.0 11/18/16 16:17 36.7 93 18 137/75 99 Mask 4.0 11/18/16 16:00 99 Mask 4.0 (Palmira Burgos PA-C) Physical Exam General Appearance: + mild distress (mild respiratory distress) Eyes: EOMI Neck: no JVD Respiratory/Chest: + pertinent finding (crackles noted at the bases left greater than right. No wheezing. Mild tachypnea noted.) Cardiovascular: + pertinent finding (occasionally irregular. No murmur auscultated.) Abdomen: normal bowel sounds, non tender, soft Extremities: non-tender, no pedal edema Neurologic/Psychiatric: alert (alert and answering questions appropriately.) Skin: warm/dry, + pertinent finding (ecchymosis noted to the arms bilaterally.) (Palmira Burgos, QUINN) Assessment and Plan 81-year-old male with advanced lung cancer metastatic disease to brain, history of diastolic heart failure and coronary artery disease admitted for epistaxis, altered mental status secondary to medications with likely developing aspiration pneumonia secondary to epistaxis Plan is for patient to pursue hospice treatment at [facility] -Medically stable for discharge. Awaiting acceptance at [facility] Epistaxis-no further bleeding -We'll give prophylactic antibiotics amoxicillin 500 mg TID for 5 days -Packing will be removed tomorrow Metastatic lung cancer with metastases to brain -Continue Decadron 4 mg po TID -Continue duo nebs every 6 hours as needed -avtivan and morphine ordered prn History of coronary artery disease, diastolic CHF with recent decompensation -1 more dose of Lasix 20 mg IV -Continue PO Lasix and Spironolactone, beta driss, digoxin to maintain current fxn -Aspirin and Plavix DC GERD -continue ranitidine 100 mg (Palmira Burgos, QUINN) Attending Attestation: Pt seen/examined, chart reviewed, care plan d/w LUIS Burgos. I agree w/ the leon components of her documentation. Pt very sleepy during my visit. Family at bedside; state he has been comfortable. VSS no fever gen - sleepy neck - no JVD nose - rhino packing in right nostril; no bleeding heart - irregular lungs - course BS b/l; CTA b/l anteriorly; crackles bases abd - NT, ND ext - warm A/P: Progressive stage 4 lung ca with brain mets. Recent severe epistaxis with probable aspiration of blood. Acute/chronic hypoxic resp failure 2nd to aspiration. Chronic systolic/diastolic CHF. Failure to thrive. plan - hospice tx to [place] tomorrow for such place isaac for comfort agree w/ additional lasix family updated Maddie WESTBROOK MD (Yonathan Westbrook MD)
[2016-11-19] MEDS ORDERED: AMOXICILLIN 500 MG CAP PO SCH (14:00)
[2016-11-19] MEDS ORDERED: DIGOXIN 0.125 MG TAB PO SCH (16:00)
[2016-11-19] MEDS: AMOXICILLIN SUSP 250 MG/5 ML 100 ML BTL PO SCH (20:48)
[2016-11-19] MEDS: MIRTAZAPINE TAB 15 MG TAB PO SCH (20:48)
[2016-11-20] MEDS: LEVOTHYROXINE 50 MCG TAB PO SCH (06:40)
[2016-11-20] MEDS ORDERED: [UNRECOGNIZED DRUG - CODE] PO (08:06)
[2016-11-20] MEDS ORDERED: OXYC10SO PO (08:06)
[2016-11-20] MEDS ORDERED: AMXUD2505 PO (08:06)
--- NOTE | 2016-11-20 08:17 | Discharge Instructions ---
Discharge Instructions Admission Reason for Admission: Comfort Measures Only Status,Epistaxis (Palmira Burgos PA-C) Discharge Discharge Diagnosis / Problem: epistaxis, metastatic lung CA (Palmira Burgos PA-C) Discharge Goals Goal(s): Decrease discomfort (Palmira Burgos PA-C) Activity Recommendations Activity Level: Up Ad Kristin Exercise/Sports Limitations: as tolerated . (Palmira Burgos PA-C) Additional Information Patient informed of condition: Yes Advance Directives: No DNR: Yes Level of Care: Skilled Communicable Disease: No Prognosis: Deteriorating Oxygen at (LPM): 2 PLEASE USE HUMIDIFIED OXYGEN TO PREVENT EPISTAXIS Shell Catheter: Yes (Palmira Burgos PA-C) Instructions / Follow-Up Instructions / Follow-Up You have been treated in the hospital for a bloody nose that caused you to have worsening respiratory problems Our goal of care now is to make you as comfortable as possible and maintain your current function. You will be going to [facility] with hospice care The following changes/additions have been made to your medication list: -Amoxicillin suspension please take 5 mL 3 times daily for an additional 4 days -Roxanol solution 5-10 mL's every 4 hours as needed for discomfort -Ativan solution one mL every 4 hours as needed for anxiety or agitation -Apply bacitracin to nostrils twice daily for 7 days -Nasal saline spray to both nostrils three times daily to prevent drying/ nosebleeds PLEASE USE HUMIDIFIED OXYGEN If your should begin to rebleed, please blow all of the clots out and then immediately apply pressure for 30 minutes in an upright position. If this does not work, you may repeat this with the addition of 2 sprays of Afrin in each nostril. Remain upright for approx 1 hr if possible (Palmira Burgos PA-C) Current Hospital Diet Patient's current hospital diet: Regular Diet (Palmira Burgos PA-C) Discharge Diet Recommended Diet: Regular Diet (Palmira Burgos PA-C) Pending Studies Studies pending at discharge: no (Palmira Burgos PA-C) Physician Orders On Transfer POLST Discussion: with POLST completion (Palmira Burgos PA-C) Medical Emergencies . Who to Call and When: Medical Emergencies: If at any time you feel your situation is an emergency, please call 911 immediately. . (Palmira Burgos PA-C) Non-Emergent Contact Non-Emergency issues call your: Primary Care Provider . (Palmira Burgos PA-C) . "Provider Documentation" section prepared by Palmira Burgos. (Palmira Burgos PA-C) Attending Attestation: Pt seen/examined with LUIS Burgos on day of discharge; I agree with her discharge instructions as outlined. Yonathan Westbrook MD (Yonathan Westbrook MD) Core Measure Problem Core Measures: None (Palmira Burgos PA-C) [place] Drug [place] Search Results: no issues identified (hospice) (Palmira Burgos PA-C)
[2016-11-20] MEDS: RANITIDINE HCL 150 MG TAB PO SCH (08:22)
[2016-11-20] MEDS: DEXAMETHASONE 4 MG TAB PO SCH ×2 (08:22→14:44)
[2016-11-20] MEDS: BUDESONIDE/FORMOTEROL FUMARATE 160/4.5 60 PUFFS/INHALER INH SCH (08:23)
[2016-11-20] MEDS: METOPROLOL TARTRATE 50 MG TAB PO SCH (08:23)
[2016-11-20] MEDS: SPIRONOLACTONE 25 MG TAB PO SCH (08:23)
[2016-11-20] MEDS: FUROSEMIDE 40 MG TAB PO SCH (08:23)
[2016-11-20] MEDS: AMOXICILLIN SUSP 250 MG/5 ML 100 ML BTL PO SCH ×2 (08:27→14:44)
[2016-11-20] MEDS ORDERED: LIDO/EPINEPHRINE/SOD BICARB 20 ML VIAL INFIL ONE (08:45)
[2016-11-20 09:24] VITALS: BP 137/75; PULSE 75; TEMP 36.7; O2SAT 99
[2016-11-20] MEDS ORDERED: BACI500O11 TOP (10:55)
[2016-11-20] MEDS ORDERED: SALI1SPR3 (10:55)
--- NOTE | 2016-11-20 11:53 | Discharge Summary ---
Discharge Summary Date of Service Nov 20, 2016. 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 Immunizations: Have You Had Influenza Vaccine: No Influenza Vaccine Date: Jul 10, 2011 History of Tetanus Vaccine?: Unknown History of Pneumococcal: Unknown Pneumococcal Date: Mar 10, 2007 History of Hepatitis B Vaccine: Unknown Procedures: Nasal packing performed in the emergency department Consultations: Palliative care (Palmira Burgos PA-C) Problems/Secondary Diagnoses: acute/chronic hypoxic respiratory failure - acute component likely 2nd to aspiration of blood from epistaxis (Yonathan Westbrook MD) Medication Reconciliation New Medications: Amoxicillin (Amoxicillin) 250 Mg/5 Ml Susp 10 ML PO TID for 4 Days Bacitracin (Topical) (Bacitracin) 500 Unit/Gm Oin 1 APPLN TOP BID for 7 Days, #30 GM please apply to the outside of nostrils BID to prevent drying Lorazepam (Ativan) 4 Mg/Ml Inj 1 MG PO Q4H for Anxiety/Agitation for 30 Days Oxycodone Oral Soln (Roxicodone Oral Soln) 5 Mg/5 Ml Soln 5-10 ML PO Q4H for 3 Days Saline (Saline Nasal Diagonal) 0.65 % Spr 1 SPRAY NA TID for 30 Days Continued Medications: Budesonide/Formoterol Fumarate (Symbicort 160-4.5 Mcg/Act) 60 Puffs/Inhaler Aero 2 PUFFS INH BID Dexamethasone (Decadron) 4 Mg Tab 4 MG PO TID for 30 Days, #90 TAB Digoxin (Digoxin) 0.125 Mg Tab 0.125 MG PO QAM Docusate Sodium (Stool Softener) 100 Mg Tab 100 MG PO BID PRN for Constipation Furosemide (Furosemide) 40 Mg Tab 40 MG PO DAILY for 30 Days, #30 TAB Ipratropium-Albuterol (Duoneb) 3 Ml Nebu 1 TREATMENT INH Q6 PRN for SOB/Wheezing, INHA Levothyroxine Sodium (Synthroid) 50 Mcg Tab 50 MCG PO QAM Metoprolol Tartrate (Lopressor) (Lopressor) 50 Mg Tab 25 MG PO BID Mirtazapine (Mirtazapine) 15 Mg Tab 7.5 MG PO HS for 30 Days, #30 TAB Omeprazole (Prilosec) 40 Mg Cap 40 MG PO HS, CAP Spironolactone (Aldactone) 25 Mg Tab 25 MG PO QAM, 0 Refills TAKE 1/2 HOUR BEFORE LASIX Tiotropium [place] Monohydrate (Spiriva Respimat) 2.5 Mcg/Act Spr 2 PUFFS INH DAILY Discontinued Medications: Allopurinol (Zyloprim) 100 Mg Tab 100 MG PO QAM Ascorbic Acid (Vitamin C) 500 Mg Tab 500 MG PO BID Atorvastatin Calcium (Lipitor) 80 Mg Tab 80 MG PO HS Melatonin (Melatonin Maximum Strengt) 5 Mg Tab 1 TAB PO HS PRN for Sleep for 30 Days, #30 TAB 1 Refill Multivitamin (Multivitamin) Tab 1 TAB PO QAM, 0 Refills Nitroglycerin (Nitrostat) 0.4 Mg Tab 0.4 MG UT PRN PRN for CHEST PAIN, BTL Ranitidine (Zantac) 150 Mg Tab 150 MG PO QAM, TAB Valacyclovir Hcl (Valtrex) 1 Gm Tab 1 GM PO BID for 10 Days, #20 Discharge Exam Patient feeling good today. Breathing improved. Denies any shortness of breath. No chest pain or pressure. Mild cough. No fever or chills. No nausea. Poor appetite noted. Review of Systems: Constitutional: No fever Respiratory: No shortness of breath Cardiovascular: No chest pain Abdomen: No nausea Physical Exam: General Appearance: + mild distress (mild respiratory distress) Neck: no JVD Respiratory/Chest: + pertinent finding (crackles and decreased breath sounds at the bases bilaterally left greater than right. Improved over yesterday.) Cardiovascular: + pertinent finding (occasionally irregular.) Abdomen / GI: normal bowel sounds, non tender, soft Extremities: no calf tenderness, no pedal edema Neurologic/Psychiatric: alert (alert and answering questions appropriately. 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 (Palmira Burgos, PANikitaC) Attending Discharge Note & Attestation: Pt seen/examined, chart reviewed, care plan d/w LUIS Burgos on day of discharge. I agree with the leon components of her discharge summary. 81yo male with progressive, stage 4 lung cancer with mets to the brain - just discharged from the hospital <24 hours prior - who presented with severe epistaxis from the right nostril. While packing was attempted in the ER he required pain meds & sedation. He subsequently developed worsening breathing and was thought to have aspiration blood. He required 100% nonrebreathing mask. The patient decompensated very quickly, and after discussions with his family, he was initiated on a palliative care pathway. Over the next 48 hours he stabilized to a point where he could transition to [facility] for hospice care. Nasal packing was removed prior to his discharge. He will remain on decadron by mouth due to his brain mets. Discharge exam - gen - cacechtic, NAD nose - right nare with dried blood but no active bleeding neck - no JVD heart - irregular lungs - course BS b/l abd - soft ext - no edema Prior to transfer to [facility] any unnecessary medications were discontinued in light of his hospice status. Yonathan Westbrook MD (Yonathan Westbrook MD) Discharge Instructions Please refer to the electronic Patient Visit Report (Discharge Instructions) for additional information. (Palmira Burgos, PA-C) Additional Copies To [facility]; Anthony Abarca M.D.
== END 2016-11-20 15:30 | DRG 180 ==
LOC: ENRESERVTM → ENRESERVDT → C.EDB 21:08 → C.4E 11-18 00:19
PROVIDERS: ADMIT Internal Medicine; ATTEND Internal Medicine
DX: C34.90 Malignant neoplasm of unspecified part of unspecified bronchus or lung (principal); R04.0 Epistaxis; J69.0 Pneumonitis due to inhalation of food and vomit; J96.21 Acute and chronic respiratory failure with hypoxia; I50.43 Acute on chronic combined systolic (congestive) and diastolic (congestive) heart failure; C79.31 Secondary malignant neoplasm of brain; J91.0 Malignant pleural effusion; I11.0 Hypertensive heart disease with heart failure; E03.9 Hypothyroidism, unspecified; R41.82 Altered mental status, unspecified; J44.9 Chronic obstructive pulmonary disease, unspecified; I25.10 Atherosclerotic heart disease of native coronary artery without angina pectoris; K21.9 Gastro-esophageal reflux disease without esophagitis; M10.9 Gout, unspecified; Z82.49 Family history of ischemic heart disease and other diseases of the circulatory system; Z83.6 Family history of other diseases of the respiratory system; Z82.3 Family history of stroke; Z79.899 Other long term (current) drug therapy; Z87.891 Personal history of nicotine dependence; Z66 Do not resuscitate; Z51.5 Encounter for palliative care; Z99.81 Dependence on supplemental oxygen